=== PATIENT | female | born 1960 | race Caucasian/White ===

== ENCOUNTER 2020-01-06 02:38 | Emergency (ER) | payer OTHER ==
--- OUTSIDE RECORDS SUMMARY | 2020-01-06 02:41 | XMS REPORT | Continuity of Care Document ---
:1960 Author Organization [facility] t Address [address] [place] [address] Care Team Providers Name Role Phone Root, G Attending Clinician Unavailable Root, G Attending Clinician Unavailable Root, G Admitting Clinician Unavailable Problems Condition Condition Condition Status Onset Resolution Last Treating Co mments Source Name Details Category Date Date Treatment Clinician Date Recurrent Recurrent Diagnosis Active [facility] - depressive depressive Me moria disorder, disorder, l in partial in partial Ou tpati remission remission ent Clinics Hypertensi Hypertensi Problem Active [facility] Diabetes Diabetes Problem [facility] mellitus [facility] - type 2, type 2, [facility] controlled controlled l [facility] Hyperlipid Hyperlipid Problem Active [facility] Osteoarthr Osteoarthr Problem Active [facility] itis, itis, [facility] - multiple multiple Memori a sites sites l [facility]ics PVD PVD Problem Active [facility] (posterior (posterior Maggi kes - vitreous vitreous Memori a detachment detachment l ) ) [facility] Generalize Generalize Problem Active [facility] - abdominal abdominal Ranulfo radha pain pain l [facility] Cervical Cervical Problem Active [facility] disc [facility] - disease 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 Ou tpati ent Clinics Irritable Irritable Problem Active [facility] bowel bowel [facility] - syndrome syndrome Memori a with with l constipati constipati Ou tpati on on ent Clinics Irritable Irritable Problem Active [facility] bowel bowel [facility] - syndrome syndrome Memori a with both with both l constipati constipati Ou tpati on and on and ent diarrhea diarrhea Clinic s Allergies, Adverse Reactions, Alerts Allergy Allergy Status Severity Reaction(s) Onset Inactive Treating Comm ents Source Name Type Date Date Clinician Lisinopr Adverse Active bad cough [facility] Clinics Trintell Adverse Active vomit [facility] ix Reaction [facility] ent Clinics Medications Ordered Filled Start Stop Current Ordering Indication Dosage Frequency Signature Comments Components Source Medication Medication Date Date Medication? Clinician (SIG) Name Name Colestipol Colestipol Yes Perlita [address] [facility] HCl HCl 4-03 [facility] - [facility]: [facility] Lithobid Lithobid Yes Perlita [address] [facility] at bedtime [facility] Quetiapine Quetiapine Yes Perlita [address] [facility] [address] Fumarate Fumarate [place] at bedtime [facility] ent [facility] Metformin Metformin Yes Perlita take one [facility] HCl HCl [place] -1 [facility] - tablet(s) Memoria by mouth l twice a Outpati day. ent Clinics Hydrochloro Hydrochloro Yes Perlita TAKE ONE [facility] thiazide thiazide [place] (1) [facility] - TABLET(S) Memoria BY MOUTH l ONCE A DAY Outpati IN THE ent MORNING. Clinics Duloxetine Duloxetine Yes Perlita [address] [address] HCl HCl [facility] [facility] l [facility] ent Clinics Procedures This patient has no known procedures. Encounters Start End Encounter Admission Attending Care Care Encounter Source Date/Time Date/Time Type Type Clinicians Facility Department ID 2019-11-18 Inpatient 1 Cristhian Nuñez [facility] PS[facility] [id number] 23:27:00 Cristhian Nuñez [id number] [address] [place] [address] 2019-01-05 Inpatient U [facility] MED [id number] MH H 08:09:00 2019-11-18 2019-11-24 Inpatient 1 Joaquin [facility] PSY [id number] 23:27:00 15:27:00 [facility] 2019-11-18 2019-11-18 Emergency E [facility] [id number] [facility]BL 02:28:00 02:28:00 2019-05-23 2019-05-23 Outpatient Jose Armando Lucero [id number] [facility] [address] 08:40[facility]00 08:40:00 [facility] 2019-02-14 2019-02-14 Outpatient Jose Armando Lucero [id number] [address] 09:40:00 09:40:00 t [facility] Medicine Outpati ent Clinics 2019-02-10 2019-02-10 [facility] [id number] [address] 09:40:00 09:40:00 t [facility] Medicine Outpati ent Clinics 2018-11-04 2018-11-04 [facility] [id number] [address] 08:04:00 08:04:00 t [facility] Medicine Outpati ent Clinics 2018-10-28 2018-10-28 [facility] [id number] [address] 09:26:00 09:26:00 t [facility] Medicine Outpati ent Clinics 2018-10-22 2018-10-22 [facility] [id number] 11:40:00 11:40:00 [facility] Outpati ent Clinics 2018-10-11 2018-10-11 [facility] [id number] [address] 16:27:00 16:27:00 t [facility] Medicine Outpati ent Clinics 2018-10-11 2018-10-11 [facility] [id number] 14:50:00 14:50:00 [facility] Medicine Outpati ent Clinics 2018-09-11 2018-09-11 [facility] [id number] 11:42:00 11:42:00 [facility] Medicine Outpati ent Clinics 2018-02-28 2018-02-28 [facility] [id number] 13:30:00 13:30:00 [facility] Outpati ent Clinics Results Test Description Test Time Test Comments Results Result Comments Source POC Glucose 2019-11-21 05:54:54 Test Item Value Reference Range Interpretation Comme nts Glucose POC (test code = 105 mg/dL 70-115 If you consider your patient Glucose POC) critically ill, the Rashaun-Accu Check Infrom II meter should not be used for Glucose det ermination. Draw a venous Glucose and send to the main Lab for analysi s. RPR [id number] 12:46:36 Test Item Value Reference Range Interpretation Comments RPR Qual (test code = RPR Qual) Non-Reactive Non-Reactive Reactive Control (test code = Reactive Reactive Control) Weak Reactive Control (test Weak Reactive code = Weak Reactive Control) Non-Reactive Control (test code Non-Reactive = Non-Reactive Control) Lot # (test code = Lot #) [id number] N Expiration Dt (test code = 11-18-2020 N Expiration Dt) Lipid [id number] 08:35:10 Test Item Value Reference Range Interpretation Comments Cholesterol Total 244 mg/dL N Low-risk l evel (test code = (desirable) - < 200 Cholesterol Total) mg/dlMode rate-risk level (borderli ne) - 200-239 mg/dlHigh-risk level - ?240 mg/dl Triglycerides (test 211 mg/dL N Normal - <150 code = Triglycerides) mg/dlB orderline high - 150-199 mg/dl High - 200-499 mg/dl Very high - ?500 mg/ dl HDL (test code = HDL) 48.60 mg/dL N Low-ri sk level (desirable) - ? 60 mg/dlHigh-risk level (undesirable) - <40 mg/dl LDL (test code = LDL) 153 mg/dL N The eq uation being used in this calculation is LDL = (Chol - HDL) - (Trig / 5) VLDL (test code = 42 mg/dL 5-40 H The equati on being VLDL) used in this calculation is VLDL = Trig / 5 Chol/HDL (test code = 5.0 ratio <=5.0 Chol/HDL) LDL/HDL Ratio (test 5 N The equa tion being code = LDL/HDL Ratio) used i n this calculation is LDL/HDL Ratio=L DL Calc/HDL Chol Thyroid Stimulating [id number] 08:35:10 Test Item Value Reference Range Interpretation Comments TSH (test code = TSH) 3.331 mcIU/mL 0.550-4.780 Hemoglobin [id number] 08:33:08 Test Item Value Reference Range Interpretation Comments Hemoglobin A1c (test code 6.0 % 4.0-5.8 H Di abetic >=6.5 = Hemoglobin A1c) %Prediabet es 5.7-6.4 %Normal <5.7 %
[2020-01-06] MEDS ORDERED: NA CHLORIDE 0.9% 1,000 ML ONE (03:18)
[2020-01-06 03:22] LABS: Protime INR 0.89
[2020-01-06 03:24] LABS: Absolute Lymphocytes (CBC) 3.5 K/uL (0.7-4.9); Basophils % 1.5 % (0-1.3); Hematocrit 46.9 % (36.0-45.0); Lymphocytes % 38.5 % (15.3-44.8); MPV 8.6 fL (7.6-11.3); RBC Red Blood Cell Count 5.03 M/uL (3.86-4.86)
[2020-01-06 03:37] LABS: ALT/SGPT 22 U/L (12-78); AST/SGOT 12 U/L (15-37); Albumin 3.8 g/dL (3.4-5.0); Alkaline Phosphatase 114 U/L (45-117); BUN Blood Urea Nitrogen 5 mg/dL (7-18); Bicarbonate 29 mmol/L (21-32); Bilirubin Direct 0.1 mg/dL (0-0.2); Bilirubin Total 0.4 mg/dL (0.2-1.0); Glucose Level 134 mg/dL (74-106); Potassium 3.1 mmol/L (3.5-5.1); Protein, Total 8.2 g/dL (6.4-8.2); Sodium Level 139 mmol/L (136-145)
[2020-01-06] MEDS ORDERED: POTASSIUM 25 MEQ EFFERV TAB ONE (04:15)
[2020-01-06 04:16] LABS: Barbiturates NEGATIVE (NEGATIVE); Benzodiazepines NEGATIVE (NEGATIVE); Cocaine NEGATIVE (NEGATIVE); METHAMPHETAM NEGATIVE (NEGATIVE); Methadone NEGATIVE (NEGATIVE); Opiates NEGATIVE (NEGATIVE); Phencyclidine NEGATIVE (NEGATIVE); THC Cannibis NEGATIVE (NEGATIVE)
[2020-01-06] MEDS ORDERED: CEFTRIAXONE 1000 MG/VIAL ONE (04:16)
[2020-01-06 04:44] LABS: Urine Blood NEGATIVE (NEG); Urine Glucose NEGATIVE (NEG); Urine Protein NEGATIVE (NEG); Urine pH 6.5 (5.0-7.0)
--- NOTE | 2020-01-06 05:01 | EDPHYS ---
Physician Documentation [facility] Name: Cat Menard Age: 59 yrs Sex: Female : 1960 Arrival Date: 01/06/2020 Time: 02:39 Bed 6 Private MD: KRISTY Physician Abhinav Bauman HPI: 01/05 02:41 This 59 yrs old Female presents to ER via Unassigned with complaints of dangelo Suicidal Ideation. 02:41 The patient presents to the emergency department with depression, suicide ideation, but dangelo the patient has no formulated plan. Onset: The symptoms/episode began/occurred today, yesterday. Past psychiatric history: Prior diagnosis: depression. Associated signs and symptoms: Pertinent positives; depression, suicide ideation. Severity of symptoms: At their worst the symptoms were moderate in the emergency department the symptoms are unchanged. The patient has not experienced similar symptoms in the past. Historical: - Allergies: 02:40 No Known Allergies; rr5 - Home Meds: 02:40 Metformin Oral [Active]; Hydrochlorothiazide Oral [Active]; Cymbalta oral oral [Active];rr5 - PMHx: 02:40 Hypertension; Diabetes - NIDDM; Anxiety; Depression; rr5 - PSHx: 02:40 Knee surgery; rr5 - Immunization history:: Adult Immunizations up to date. - Social history:: Smoking status: Patient reports the use of cigarette tobacco products, 4 sticks per day, Patient uses alcohol, Patient/guardian denies using street drugs. - Family history:: not pertinent. ROS: 02:41 Constitutional: Negative for fever, chills, and weight loss, Eyes: Negative for injury, dangelo pain, redness, and discharge, ENT: Negative for injury, pain, and discharge, Neck: Negative for injury, pain, and swelling, Cardiovascular: Negative for chest pain, palpitations, and edema, Respiratory: Negative for shortness of breath, cough, wheezing, and pleuritic chest pain, Abdomen/GI: Negative for abdominal pain, nausea, vomiting, diarrhea, and constipation, Back: Negative for injury and pain, : Negative for injury, bleeding, discharge, and swelling, MS/Extremity: Negative for injury and deformity, Skin: Negative for injury, rash, and discoloration, Neuro: Negative for headache, weakness, numbness, tingling, and seizure, Allergy/Immunology: Negative for hives, rash, and allergies, Endocrine: Negative for neck swelling, polydipsia, polyuria, polyphagia, and marked weight changes, Hematologic/Lymphatic: Negative for swollen nodes, abnormal bleeding, and unusual bruising. 02:41 Psych: Positive for depression. Exam: 02:41 Constitutional: This is a well developed, well nourished patient who is awake, alert, dangelo and in no acute distress. Head/Face: Normocephalic, atraumatic. Eyes: Pupils equal round and reactive to light, extra-ocular motions intact. Lids and lashes normal. Conjunctiva and sclera are non-icteric and not injected. Cornea within normal limits. Periorbital areas with no swelling, redness, or edema. ENT: Nares patent. No nasal discharge, no septal abnormalities noted. Tympanic membranes are normal and external auditory canals are clear. Oropharynx with no redness, swelling, or masses, exudates, or evidence of obstruction, uvula midline. Mucous membranes moist. Neck: Trachea midline, no thyromegaly or masses palpated, and no cervical lymphadenopathy. Supple, full range of motion without nuchal rigidity, or vertebral point tenderness. No Meningismus. Chest/axilla: Normal chest wall appearance and motion. Nontender with no deformity. No lesions are appreciated. Cardiovascular: Regular rate and rhythm with a normal S1 and S2. No gallops, murmurs, or rubs. Normal PMI, no JVD. No pulse deficits. Respiratory: Lungs have equal breath sounds bilaterally, clear to auscultation and percussion. No rales, rhonchi or wheezes noted. No increased work of breathing, no retractions or nasal flaring. Abdomen/GI: Soft, non-tender, with normal bowel sounds. No distension or tympany. No guarding or rebound. No evidence of tenderness throughout. Back: No spinal tenderness. No costovertebral tenderness. Full range of motion. Skin: Warm, dry with normal turgor. Normal color with no rashes, no lesions, and no evidence of cellulitis. MS/ Extremity: Pulses equal, no cyanosis. Neurovascular intact. Full, normal range of motion. Neuro: Awake and alert, GCS 15, oriented to person, place, time, and situation. Cranial nerves II-XII grossly intact. Motor strength 5/5 in all extremities. Sensory grossly intact. Cerebellar exam normal. Normal gait. 02:41 Psych: Behavior/mood is cooperative, Affect is calm, Oriented to person, place, time, Patient has no thoughts/intents to harm self or others. Judgement / Insight is normal. Memory is normal. Delusions/hallucinations are not present. 03:41 ECG was reviewed by the Attending Physician. [facility] Vital Signs: 02:42 BP 114 / 59 RA Sitting (auto/lg); Pulse 82; Resp 16; Temp 98.1(O); Pulse Ox 98% on R/A; jb5 02:50 Weight 99.79 kg; Height 5 ft. 4 in. (162.56 cm); rr5 04:16 BP 115 / 70; Pulse 80; Resp 19; Pulse Ox 99% ; rr5 05:08 BP 110 / 66; Pulse 75; Resp 16; Pulse Ox 99% ; rr5 02:50 Body Mass Index 37.76 (99.79 kg, 162.56 cm) rr5 MDM: 02:40 Patient medically screened. [facility] 02:45 Differential diagnosis: acute psychotic break, depression, psychosis secondary to dangelo non-compliance. Data reviewed: vital signs, nurses notes, lab test result(s), EKG. Data interpreted: surveillance system monitor: rate is 82 beats/min, rhythm is regular. Test interpretation: by ED physician or midlevel provider: ECG. Counseling: I had a detailed discussion with the patient and/or guardian regarding: the historical points, exam findings, and any diagnostic results supporting the discharge/admit diagnosis, lab results. 01/05 02:41 Order name: Acetaminophen; Complete Time: 03:47 [facility] 01/05 02:41 Order name: Basic Metabolic Panel; Complete Time: 03:47 [facility] 01/05 02:41 Order name: CBC with Diff; Complete Time: 03:47 [facility] 01/05 02:41 Order name: ETOH Level; Complete Time: 03:47 [facility] 01/05 02:41 Order name: Hepatic Function; Complete Time: 03:47 [facility] 01/05 02:41 Order name: PT-INR; Complete Time: 03:47 [facility] 01/05 02:41 Order name: Ptt, Activated; Complete Time: 03:47 [facility] 01/05 02:41 Order name: Salicylate; Complete Time: 03:47 [facility] 01/05 02:41 Order name: Urine Drug Screen; Complete Time: 05:00 [facility] 01/05 04:00 Order name: Urine Culture [facility] 01/05 04:06 Order name: Urine Dipstick--Ancillary (enter results); Complete Time: 05:00 al 01/05 02:41 Order name: EKG; Complete Time: 02:42 [facility] 01/05 02:41 Order name: EKG - Nurse/Tech; Complete Time: 03:08 [facility] 01/05 02:41 Order name: IV Saline Lock; Complete Time: 03:00 [facility] 01/05 02:41 Order name: Labs collected and sent; Complete Time: 03:00 [facility] 01/05 02:41 Order name: Urine Dipstick-Ancillary (obtain specimen); Complete Time: 04:00 [facility] EC:41 Rate is 78 beats/min. Rhythm is regular. QRS [place] is Normal. CA interval is normal. QRS dangelo interval is normal. QT interval is normal. No Q waves. T waves are Inverted in lead aVL. No ST changes noted. Clinical impression: NSR w/ Non-specific ST/T Changes. Interpreted by me. Reviewed by me. Administered Medications: 03:12 Drug: NS 0.9% 1000 ml Route: IV; Rate: 1 bolus; Site: right antecubital; rr5 05:10 Follow up: Response: No adverse reaction; IV Status: Completed infusion; IV Intake: rr5 1000ml 04:12 Drug: Potassium Effervescent Tablet 50 mEq Route: PO; rr5 05:10 Follow up: Response: No adverse reaction rr5 04:12 Drug: Rocephin 1 grams Route: IV; Rate: per protocol; Site: right antecubital; rr5 05:10 Follow up: Response: No adverse reaction; IV Status: Completed infusion; IV Intake: 19admg8 Disposition: 01/06/20 05:01 Discharged to Home. Impression: Major depressive disorder, recurrent, Suicidal ideations, Hypokalemia, Urinary tract infection, site not specified. - Condition is Stable. - Discharge Instructions: Potassium Content of Foods, Urinary Tract Infection, Adult, Suicidal Feelings: How to Help Yourself, Helping Someone Who is Suicidal, Urinary Tract Infection, Adult, [id number], Hypokalemia, Major Depressive Disorder, [id number]-[id number], Major Depressive Disorder. - Prescriptions for Cipro 250 mg Oral Tablet - take 1 tablet by ORAL route every 12 hours; 14 tablet. - Medication Reconciliation Form, Thank You Letter, Antibiotic Education, Prescription Opioid Use form. - Follow up: Private Physician; When: 2 - 3 days; Reason: Recheck today's complaints, Continuance of care, Re-evaluation by your physician. Follow up: Dion Martin; When: 2 - 3 days; Reason: Recheck today's complaints, Re-evaluation by your physician. - Problem is new. - Symptoms have improved. Signatures: Dispatcher [employer] EDAbhinav Shields MD MD cha Roque, Raymond RN RN rr5 Corrections: (The following items were deleted from the chart) 05:11 05:01 01/06/2020 05:01 Discharged to Home. Impression: Major depressive disorder, rr5 recurrent; Suicidal ideations; Hypokalemia; Urinary tract infection, site not specified. Condition is Stable. Discharge Instructions: Suicidal Feelings: How to Help Yourself, Helping Someone Who is Suicidal, Major Depressive Disorder, Qsth-ko-Xocm, Major Depressive Disorder, Potassium Content of Foods, Hypokalemia, Urinary Tract Infection, Adult, Urinary Tract Infection, Adult, Magk-uk-[id number]. Prescriptions for Cipro 250 mg Oral Tablet - take 1 tablet by ORAL route every 12 hours; 14 tablet. and Forms are Medication Reconciliation Form, Thank You Letter, Antibiotic Education, Prescription Opioid Use. Follow up: Private Physician; When: 2 - 3 days; Reason: Recheck today's complaints, Continuance of care, Re-evaluation by your physician. Follow up: Dion Martin; When: 2 - 3 days; Reason: Recheck today's complaints, Re-evaluation by your physician. Problem is new. Symptoms have improved. dangelo
--- NOTE | 2020-01-06 05:01 | ER ---
Nurse's Notes [facility] Name: Cat Menard Age: 59 yrs Sex: Female : 1960 Arrival Date: 01/06/2020 Time: 02:39 Bed 6 Private MD: Diagnosis: Major depressive disorder, recurrent;Suicidal ideations;Hypokalemia;Urinary tract infection, site not specified Presentation: 01/05 02:50 Chief complaint: accompanied by [place] district resource officer,he stated she called the crisis rr5 hot line she said she is depress but now she feels better. patient stated she had a bad day having suicidal thoughts wants to take pills. denies hurting others. had a 2 glass of wine tonight. Coronavirus screen: Client denies travel out of the [place] in the last 14 days. At this time, the client does not indicate any symptoms associated with coronavirus-19. Ebola Screen: Patient negative for fever greater than or equal to 101.5 degrees Fahrenheit, and additional compatible Ebola Virus Disease symptoms Patient denies exposure to infectious person. Patient denies travel to an Ebola-affected area in the 21 days before illness onset. Initial Sepsis Screen: Does the patient meet any 2 criteria? No. Patient's initial sepsis screen is negative. Does the patient have a suspected source of infection? No. Patient's initial sepsis screen is negative. Risk Assessment: Do you want to hurt yourself or someone else? Patient reports desire/thoughts of hurting themselves or someone else. Provider notified. Onset of symptoms was January 06, 2020. 02:50 Method Of Arrival: Law Enforcement: Crista MUSA rr5 02:50 Acuity: GILMAR 2 rr5 Historical: - Allergies: 02:40 No Known Allergies; rr5 - Home Meds: 02:40 Metformin Oral [Active]; Hydrochlorothiazide Oral [Active]; Cymbalta oral oral [Active];rr5 - PMHx: 02:40 Hypertension; Diabetes - NIDDM; Anxiety; Depression; rr5 - PSHx: 02:40 Knee surgery; rr5 - Immunization history:: Adult Immunizations up to date. - Social history:: Smoking status: Patient reports the use of cigarette tobacco products, 4 sticks per day, Patient uses alcohol, Patient/guardian denies using street drugs. - Family history:: not pertinent. Screenin:55 Abuse screen: Denies threats or abuse. Denies injuries from another. Nutritional rr5 screening: No deficits noted. Tuberculosis screening: No symptoms or risk factors identified. Fall Risk IV access (20 points). Total Edwards Fall Scale indicates No Risk (0-24 pts). Assessment: 02:50 General: Appears in no apparent distress. uncomfortable, Behavior is calm, cooperative, rr5 Reports had 2 glasses of wine. 02:50 Pain: Denies pain. Neuro: Level of Consciousness is awake, alert, obeys commands, rr5 Oriented to person, place, time. Cardiovascular: Capillary refill < 3 seconds Patient's skin is warm and dry. Respiratory: Airway is patent Respiratory effort is even, unlabored, Respiratory pattern is regular, symmetrical. GI: No signs and/or symptoms were reported involving the gastrointestinal system. : No signs and/or symptoms were reported regarding the genitourinary system. EENT: No signs and/or symptoms were reported regarding the EENT system. Derm: Skin is intact, is healthy with good turgor, Skin temperature is warm. Musculoskeletal: Circulation, motion, and sensation intact. Capillary refill < 3 seconds. 04:00 Reassessment: Patient appears in no apparent distress at this time. Patient is alert, rr5 oriented x 3, equal unlabored respirations, skin warm/dry/pink. [facility] at bedside. 04:47 Reassessment: Patient appears in no apparent distress at this time. Patient is alert, rr5 oriented x 3, equal unlabored respirations, skin warm/dry/pink. [facility] at bedside. 05:09 Reassessment: Patient appears in no apparent distress at this time. Patient is alert, rr5 oriented x 3, equal unlabored respirations, skin warm/dry/pink. recommendation by [facility] to follow up as OPD. discharge instruction given and explained without complaints made. Psych: 03:00 Subjective: Patient's mood is calm Delusions are denied, Hallucinations are denied rr5 Having thoughts of. Objective: Patient is cooperative, Speech is normal, Affect is appropriate. Interventions: Removed personal items and placed in bag. Searched person for dangerous items. Urine collected and sent for urine drug test. 03:00 Suicide Risk Assessment: Sad Person Scale: Sex of patient: Female: Score 0 points. Age rr5 of patient: Score 0 point if patient falls outside of specified age parameters. Depression: Score 1 point if signs of depression are present. Previous Attempt: Score 0 point if patient has not previously attempted suicide. Substance Abuse: Score 0 point if patient does not abuse alcohol or drugs. Rational Thinking: Score 0 point if patient has rational thinking. Social Support: Score 0 if social support is present/available. Organized Plan: Score 0 if patient did not have an organized plan in place. Relationship: Score 1 point if patient is , , , or for a single male Chronic Sickness: Score 1 point if patient has illness, chronic, debilitating, or severe. TOTAL POINTS: If total points are 3-4, proposed clinical action is close follow-up/consider hospitalization. Safety Checks: Personal items have been removed. Door is open. Visitors are present. Pt denies substance abuse. Commitment: Patient will be a voluntary commitment. 03:00 Interventions: Removed personal items and placed in bag. Searched person for dangerous rr5 items. Urine collected and sent for urine drug test. Vital Signs: 02:42 BP 114 / 59 RA Sitting (auto/lg); Pulse 82; Resp 16; Temp 98.1(O); Pulse Ox 98% on R/A; jb5 02:50 Weight 99.79 kg; Height 5 ft. 4 in. (162.56 cm); rr5 04:16 BP 115 / 70; Pulse 80; Resp 19; Pulse Ox 99% ; rr5 05:08 BP 110 / 66; Pulse 75; Resp 16; Pulse Ox 99% ; rr5 02:50 Body Mass Index 37.76 (99.79 kg, 162.56 cm) rr5 ED Course: 02:39 Patient arrived in ED. cf2 02:40 Abhinav Bauman MD is Attending Physician. dangelo 02:40 Arm band placed on right wrist. rr5 02:49 Herbie Bowman RN is Primary Nurse. rr5 02:53 Triage completed. rr5 02:59 Inserted saline lock: 20 gauge in right antecubital area, using aseptic technique. jb5 Blood collected. 02:59 Acetaminophen Sent. jb5 03:00 Patient has correct armband on for positive identification. Bed in low position. rr5 03:00 Basic Metabolic Panel Sent. jb5 03:00 CBC with Diff Sent. jb5 03:00 ETOH Level Sent. jb5 03:00 Hepatic Function Sent. jb5 03:00 PT-INR Sent. jb5 03:00 Ptt, Activated Sent. jb5 03:00 Salicylate Sent. jb5 03:07 Acetaminophen Sent. jb5 03:07 Basic Metabolic Panel Sent. jb5 03:07 CBC with Diff Sent. jb5 03:07 ETOH Level Sent. jb5 03:08 Hepatic Function Sent. jb5 03:08 PT-INR Sent. jb5 03:08 Ptt, Activated Sent. jb5 03:08 Salicylate Sent. jb5 04:06 Contacted [facility] for evaluation. mt 04:12 Urine collected: clean catch specimen, clear. rr5 04:12 No provider procedures requiring assistance completed. rr5 04:48 Chiquis Pardo with [facility] at bedside for evaluation. md 05:01 Dion Martin MD is Referral Physician. [facility] 05:09 IV discontinued, intact, bleeding controlled, No redness/swelling at site. Pressure rr5 dressing applied. Administered Medications: 03:12 Drug: NS 0.9% 1000 ml Route: IV; Rate: 1 bolus; Site: right antecubital; rr5 05:10 Follow up: Response: No adverse reaction; IV Status: Completed infusion; IV Intake: rr5 1000ml 04:12 Drug: Potassium Effervescent Tablet 50 mEq Route: PO; rr5 05:10 Follow up: Response: No adverse reaction rr5 04:12 Drug: Rocephin 1 grams Route: IV; Rate: per protocol; Site: right antecubital; rr5 05:10 Follow up: Response: No adverse reaction; IV Status: Completed infusion; IV Intake: [id number] Intake: 05:10 IV: 10ml; Total: 10ml. rr5 05:10 IV: 1000ml; Total: 1010ml. rr5 Outcome: 05:01 Discharge ordered by . dangleo 05:09 Discharged to home ambulatory, with family. rr5 05:09 Condition: stable 05:09 Discharge instructions given to patient, family, Instructed on discharge instructions, follow up and referral plans. medication usage, Demonstrated understanding of instructions, follow-up care, medications, Prescriptions given X 1. 05:11 Patient left the ED. rr5 Signatures: Abhinav Bauman MD MD cha Broussard, Jennifer jb5 Elissa Nieves mt, Raymond, RN RN rr5 Goodwin, Celesta cf2
--- NOTE | 2020-01-06 12:33 | EKG ---
Test Date: 2020-01-06 Test Time: 03:03:37 Top Lift Compressor: MARSHA MEASUREMENT RESULTS: Intervals: Rate: 78 AR: 174 QRSD: 82 QT: 394 QTc: 449 [place]: P: 52 AR: 174 QRS: -32 T: 81 INTERPRETIVE STATEMENTS: Normal sinus rhythm Left axis deviation Low voltage QRS Nonspecific T wave abnormality Abnormal ECG Compared to ECG 06/07/2002 23:13:00 Left-axis deviation now present Low QRS voltage now present T-wave abnormality now present Electronically Signed On 01-06-20 12:33:01 NARRATIVE WRITER by Wu Hill
[2020-01-06 12:40] VITALS: TEMP 98.1
[2020-01-06 12:46] VITALS: O2SAT 99
[2020-01-06 12:48] VITALS: BP 110/66
== END 2020-01-06 05:11 | disposition home or self-care (01) ==
LOC: ER 02:38
DX: R45.851 Suicidal ideations (principal); E87.6 Hypokalemia; N39.0 Urinary tract infection, site not specified; I10 Essential (primary) hypertension; E11.9 Type 2 diabetes mellitus without complications; F17.210 Nicotine dependence, cigarettes, uncomplicated
CPT/HCPCS: 96365; 96361; 93005; 87088; 85025; 87086; 80048; 36415; 80320; 80329 ×2; 85610; 80076; 80307 ×8; 85730; 81003; 99284; J7030

== ENCOUNTER 2020-05-26 00:41 | Emergency (ER) | payer OTHER ==
--- OUTSIDE RECORDS SUMMARY | 2020-05-26 00:44 | XMS REPORT | Continuity of Care Document ---
:1960 Author Organization [facility] t Address [address] [place] [address] Care Team Providers Name Role Phone Joaquin, G Attending Clinician Unavailable Root, G Attending Clinician Unavailable Root, G Admitting Clinician Unavailable Problems This patient has no known problems. Allergies, Adverse Reactions, Alerts Allergy Allergy Status Severity Reaction(s) Onset Inactive Treating Comm ents Source Name Type Date Date Clinician Lisinopr Adverse Active bad cough [facility] Clin[facility] [place] Adverse Active vomit [facility] Medications Ordered Filled Start Stop Current Ordering Indication Dosage Frequency Signature Comments Components Source Medication Medication Date Date Medication? Clinician (SIG) Name Name Colestipol Colestipol 0 Yes Perlita [address] [facility] HCl HCl 4-03 [place] [facility] Lithobid Lithobid Yes Perlita [address] [place] [facility] Quetiapine Quetiapine Yes Perlita [address] [facility] Fumarate Fumarate [place] at bedtime kes [facility] ent Clinics Metformin Metformin Yes Perlita take one [facility] HCl HCl [place] -1 [facility] - tablet[facility] by mouth l twice a Outpati day. ent Clinics Hydrochloro Hydrochloro Yes Perlita TAKE ONE [facility] thiazide thiazide [place] (1) [facility] - TABLET(S[facility] BY MOUTH l ONCE A DAY Outpati IN THE ent MORNING. Clinics Duloxetine Duloxetine Yes Perlita [address] [facility] [place] [facility] Procedures This patient has no known procedures. Encounters Start End Encounter Admission Attending Care Care Encounter Source Date/Time Date/Time Type Type Clinicians Facility Department ID 2019-11-18 Inpatient 1 Cristhian Nuñez [facility] [id number] 23:27:00 Cristhian Nuñez [id number] [facility] 2019-01-05 Inpatient U [facility] [id number] [facility] 08:09:00 2020-05-06 2020-05-06 Outpatient [facility] [id number] 2020-04-28 2020-04-28 Outpatient [facility] [id number] [facility] 2019-11-18 2019-11-24 Inpatient 1 Cristhian Nuñez [facility] [id number] 23:27:00 15:27:00 Cristhian Nuñez [facility] 2019-11-18 2019-11-18 Emergency E [facility] [id number] [facility] 02:28:00 02:28:00 2019-05-23 2019-05-23 [facility] [id number] [facility] 08:40[facility]00 08:40:00 [facility] Outpati ent Clinics 2019-02-14 2019-02-14 [facility] [id number] [address] 09:40:00 09:40:00 [facility] Outpati ent Clinics 2019-02-10 2019-02-10 [facility] [id number] 09:40:00 09:40:00 [facility] Outpati ent Clinics 2018-11-04 2018-11-04 [facility] [id number] [address] 08:04:00 08:04:00 [facility] Outpati ent Clinics 2018-10-28 2018-10-28 [facility] [id number] [address] 09:26:00 09:26:00 [facility] 2018-10-22 2018-10-22 [facility] [id number] [address] 11:40:00 11:40:00 [facility] 2018-10-11 2018-10-11 [facility] [id number] 16:27:00 16:27:00 [facility] 2018-10-11 2018-10-11 [facility] [id number] 14:50:00 14:50:00 [facility] ent Clinics 2018-09-11 2018-09-11 [facility] [id number] 11:42:00 11:42:00 [facility] 2018-02-28 2018-02-28 [facility] [id number] 13:30:00 13:30:00 [facility] Results Test Description Test Time Test Comments [...] to the main Lab for analysi s. OTILIA [id number] 12:46:36 Test Item Value Reference Range Interpretation Comments RPR Qual (test code = RPR Qual) Non-Reactive Non-Reactive Reactive Control (test code = Reactive Reactive Control) Weak Reactive Control (test Weak Reactive code = Weak Reactive Control) Non-Reactive Control (test code Non-Reactive = Non-Reactive Control) Lot # (test code = Lot #) [id number] N Expiration Dt (test code = 11-18-2020 N Expiration Dt) Lipid [id number] 08:35:10 Test Item Value Reference Range Interpretation [...] LDL/HDL Ratio=L DL Calc/HDL Chol Thyroid Stimulating [id number] 08:35:10 Test Item Value Reference Range Interpretation Comments TSH (test code = TSH) 3.331 mcIU/mL 0.550-4.780 Hemoglobin [id number] 08:33:08 Test Item Value Reference Range Interpretation Comments Hemoglobin A1c (test code 6.0 % 4.0-5.8 H Di abetic >=6.5 = Hemoglobin A1c) %Prediabet es 5.7-6.4 %Normal <5.7 %
[2020-05-26 01:14] LABS: Urine Blood Negative (Negative); Urine Glucose Negative (Negative); Urine Protein Negative (Negative)
[2020-05-26 01:22] LABS: Absolute Lymphocytes (CBC) 3.5 K/uL (0.7-4.9); Basophils % 1.2 % (0-1.3); Hematocrit 44.1 % (36.0-45.0); Lymphocytes % 37.9 % (15.3-44.8); MPV 8.2 fL (7.6-11.3); RBC Red Blood Cell Count 4.69 M/uL (3.86-4.86)
[2020-05-26] MEDS ORDERED: CEFTRIAXONE/SWI 1gm 1 GM/10 ML SYR ONE (01:34)
[2020-05-26] MEDS ORDERED: NA CHLORIDE 0.9% 1,000 ML ONE (01:35)
[2020-05-26 01:41] LABS: Barbiturates NEGATIVE (NEGATIVE); Benzodiazepines NEGATIVE (NEGATIVE); Cocaine NEGATIVE (NEGATIVE); METHAMPHETAM NEGATIVE (NEGATIVE); Methadone NEGATIVE (NEGATIVE); Opiates NEGATIVE (NEGATIVE); Phencyclidine NEGATIVE (NEGATIVE); THC Cannibis NEGATIVE (NEGATIVE)
[2020-05-26 01:42] LABS: Protime INR 0.95
[2020-05-26 02:05] LABS: ALT/SGPT 25 U/L (12-78); Albumin 3.5 g/dL (3.4-5.0); Alkaline Phosphatase 105 U/L (45-117); BUN Blood Urea Nitrogen 7 mg/dL (7-18); Bicarbonate 29 mmol/L (21-32); Bilirubin Direct < 0.1 mg/dL (0-0.2); Bilirubin Total 0.3 mg/dL (0.2-1.0); Glucose Level 121 mg/dL (74-106); Protein, Total 7.6 g/dL (6.4-8.2); Sodium Level 137 mmol/L (136-145)
[2020-05-26 02:06] LABS: AST/SGOT 15 U/L (15-37); Potassium 3.5 mmol/L (3.5-5.1)
--- NOTE | 2020-05-26 03:25 | EDPHYS ---
Physician Documentation [facility] Name: Cat Menard Age: 59 yrs Sex: Female : 1960 Arrival Date: 05/26/2020 Time: 00:48 Bed 6 Private MD: KRISTY Physician Abhinav Bauman HPI: 05/26 01:26 This 59 yrs old Female presents to ER via EMS with complaints of Suicidal dangelo Ideation. 01:26 The patient presents to the emergency department with depression, a history of a dangelo suicide gesture, where the patient took pills/medications, prozac/cymbalta a handful. Onset: The symptoms/episode began/occurred just prior to arrival. Past psychiatric history: Prior diagnosis: depression, Psychiatric medications include: Prozac, cymbalta. Associated signs and symptoms: The patient has no apparent associated signs or symptoms. Severity of symptoms: At their worst the symptoms were mild moderate in the emergency department the symptoms are unchanged. The patient has experienced similar episodes in the past, several times. Historical: - Allergies: 00:56 No Known Allergies; wh - PMHx: 00:56 Anxiety; Depression; Diabetes - NIDDM; Hypertension; wh - Immunization history:: Adult Immunizations unknown. - Social history:: Smoking status: Patient reports the use of cigarette tobacco products, smokes one-half pack cigarettes per day. - Family history:: not pertinent. ROS: 01:26 Constitutional: Negative for fever, chills, and weight loss, Eyes: Negative for injury, dangelo pain, redness, and discharge, ENT: Negative for injury, pain, and discharge, Neck: Negative for injury, pain, and swelling, Cardiovascular: Negative for chest pain, palpitations, and edema, Respiratory: Negative for shortness of breath, cough, wheezing, and pleuritic chest pain, Abdomen/GI: Negative for abdominal pain, nausea, vomiting, diarrhea, and constipation, Back: Negative for injury and pain, : Negative for injury, bleeding, discharge, and swelling, MS/Extremity: Negative for injury and deformity, Skin: Negative for injury, rash, and discoloration, Neuro: Negative for headache, weakness, numbness, tingling, and seizure, Allergy/Immunology: Negative for hives, rash, and allergies, Endocrine: Negative for neck swelling, polydipsia, polyuria, polyphagia, and marked weight changes, Hematologic/Lymphatic: Negative for swollen nodes, abnormal bleeding, and unusual bruising. 01:26 Psych: Positive for anxiety, depression, suicide gesture. Exam: :26 Constitutional: This is a well developed, well nourished patient who is awake, alert, dangelo and in no acute distress. Head/Face: Normocephalic, atraumatic. Eyes: Pupils equal round and reactive to light, extra-ocular motions intact. Lids and lashes normal. Conjunctiva and sclera are non-icteric and not injected. Cornea within normal limits. Periorbital areas with no swelling, redness, or edema. ENT: Nares patent. No nasal discharge, no septal abnormalities noted. Tympanic membranes are normal and external auditory canals are clear. Oropharynx with no redness, swelling, or masses, exudates, or evidence of obstruction, uvula midline. Mucous membranes moist. Neck: Trachea midline, no thyromegaly or masses palpated, and no cervical lymphadenopathy. Supple, full range of motion without nuchal rigidity, or vertebral point tenderness. No Meningismus. Chest/axilla: Normal chest wall appearance and motion. Nontender with no deformity. No lesions are appreciated. Cardiovascular: Regular rate and rhythm with a normal S1 and S2. No gallops, murmurs, or rubs. Normal PMI, no JVD. No pulse deficits. Respiratory: Lungs have equal breath sounds bilaterally, clear to auscultation and percussion. No rales, rhonchi or wheezes noted. No increased work of breathing, no retractions or nasal flaring. Abdomen/GI: Soft, non-tender, with normal bowel sounds. No distension or tympany. No guarding or rebound. No evidence of tenderness throughout. Back: No spinal tenderness. No costovertebral tenderness. Full range of motion. Female : Normal external genitalia. Skin: Warm, dry with normal turgor. Normal color with no rashes, no lesions, and no evidence of cellulitis. MS/ Extremity: Pulses equal, no cyanosis. Neurovascular intact. Full, normal range of motion. Neuro: Awake and alert, GCS 15, oriented to person, place, time, and situation. Cranial nerves II-XII grossly intact. Motor strength 5/5 in all extremities. Sensory grossly intact. Cerebellar exam normal. Normal gait. Psych: Awake, alert, with orientation to person, place and time. Behavior, mood, and affect are within normal limits. 01:30 ECG was reviewed by the Attending Physician. dangelo 03:43 ECG was reviewed by the Attending Physician. [facility] Vital Signs: 00:55 BP 135 / 68; Pulse 68; Resp 18; Temp 98.2; Pulse Ox 99% ; Weight 104.33 kg; Height 5 wh ft. 4 in. (162.56 cm); 03:00 BP 141 / 72; Pulse 67; Resp 16; Pulse Ox 96% on R/A; wh 04:30 BP 170 / 92; Pulse 72; Resp 16; Pulse Ox 97% ; wh 04:31 BP 165 / 99 RA Supine (auto/); Pulse 72 MON; Resp 14 S; Temp 98.2(O); Pulse Ox 98% ; ds4 Pain 0/10; 06:07 BP 176 / 84; Pulse 76; Resp 18 S; Pulse Ox 98% on R/A; bb 00:55 Body Mass Index 39.48 (104.33 kg, 162.56 cm) wh MDM: 00:55 Patient medically screened. [facility] 01:29 Differential diagnosis: acute psychotic break, depression, psychosis secondary to dangelo non-compliance. Data reviewed: vital signs, nurses notes, lab test result(s), EKG, radiologic studies, plain films. Data interpreted: ela teacher: rate is 68 beats/min, rhythm is regular, Pulse oximetry: on room air is 99 %. Test interpretation: by ED physician or midlevel provider: ECG, plain radiologic studies. Counseling: I had a detailed discussion with the patient and/or guardian regarding: the historical points, exam findings, and any diagnostic results supporting the discharge/admit diagnosis, lab results, radiology results. 05/26 00:49 Order name: Acetaminophen mg2 05/26 00:49 Order name: Basic Metabolic Panel; Complete Time: : mg2 05/26 00:49 Order name: CBC with Diff; Complete Time: 01:25 mg2 05/26 00:49 Order name: ETOH Level; Complete Time: : mg2 05/26 00:49 Order name: Hepatic Function; Complete Time: 02:56 mg2 05/26 00:49 Order name: PT-INR; Complete Time: 02: mg2 05/26 00:49 Order name: Ptt, Activated; Complete Time: : mg2 05/26 00:49 Order name: Salicylate; Complete Time: 02:56 mg2 05/26 00:49 Order name: Urine Drug Screen; Complete Time: 02:56 mg2 05/26 00:49 Order name: Acetaminophen Level; Complete Time: 02:56 EDMS 05/26 01:10 Order name: COVID-19 : Document "Date of Symptom Onset" if Symptomatic. [facility] 05/26 01:13 Order name: Urine Dipstick-Ancillary; Complete Time: 01:25 EDMS 05/26 01:13 Order name: Urine --Ancillary (enter results) 2 05/26 00:49 Order name: EKG; Complete Time: 00:50 mg2 05/26 00:49 Order name: EKG - Nurse/Tech; Complete Time: 01: mg2 05/26 00:49 Order name: IV Saline Lock; Complete Time: 01:07 mg2 05/26 00:49 Order name: Labs collected and sent; Complete Time: 01: mg2 05/26 00:49 Order name: Urine Dipstick-Ancillary (obtain specimen); Complete Time: 01: [facility] 05/26 00:59 Order name: Misc. Order: call poison control , follow all recommendations; Complete dangelo Time: 05/26 01:14 Order name: Urine --Ancillary; Complete Time: 05:20 EDMS 05/26 01:14 Order name: Urine Culture [facility] 05/26 03:45 Order name: Troponin (emerg Dept Use Only) [facility] 05/26 03:46 Order name: Troponin (Emerg Dept Use Only); Complete Time: 05:20 EDMS 05/26 03:56 Order name: SARS-COV-2 RT PCR; Complete Time: 04:34 EDMS 05/26 05:28 Order name: Salicylate 05/26 06:26 Order name: Diet Regular; Complete Time: 06:26 bb EC:30 Rate is 62 beats/min. Rhythm is regular. QRS [employer] is Normal. TX interval is normal. QRS dangelo interval is normal. QT interval is normal. No Q waves. T waves are Normal. No ST changes noted. Clinical impression: Normal ECG, NSR w/ Non-specific ST/T Changes, and No evidence of ischemia. Interpreted by me. Reviewed by me. 03:43 Rate is 69 beats/min. Rhythm is regular. QRS [employer] is Normal. TX interval is normal. QRS dangelo interval is normal. QT interval is normal. No Q waves. T waves are Inverted in leads V2, V3, V4, V5. No ST changes noted. Clinical impression: NSR w/ Non-specific ST/T Changes. Interpreted by me. Reviewed by me. Administered Medications: : Drug: NS 0.9% 1000 ml Route: IV; Rate: 1 bolus; Site: left antecubital; 03:48 Follow up: Response: No adverse reaction; IV Status: Completed infusion 01:23 Drug: Rocephin - (cefTRIAXone) 1 grams Route: IVPB; Infused Over: 30 mins; Site: left antecubital; 03:48 Follow up: Response: No adverse reaction; IV Status: Completed infusion Disposition: 05/26/20 03:24 Transfer ordered to Psych Facility. Diagnosis are Major depressive disorder, recurrent, Suicidal ideations, Suicide attempt - overdose, cymbalta, prozac, Type 2 diabetes mellitus, Essential (primary) hypertension, Urinary tract infection, site not specified, Alcohol abuse with intoxication. - Reason for transfer: Higher level of care. - Accepting physician is to psych. - Condition is Stable. - Problem is new. - Symptoms have improved. Signatures: Dispatcher [employer] EDNE Abhinav Bauman MD MD cha Smirch, Shelby, RN RN Lior Cuevas RN RN Jed Gastelum RN RN [facility] Corrections: (The following items were deleted from the chart) 02:26 01:10 CORONAVIRUS ordered. [facility] EDNE 03:47 03:24 05/26/2020 03:24 Transfer ordered to Psych Facility. Diagnosis is Major dangelo depressive disorder, recurrent; Suicidal ideations; Suicide attempt - overdose, cymbalta, prozac; Type 2 diabetes mellitus; Essential (primary) hypertension. Reason for transfer: Higher level of care. Accepting physician is to psych. Condition is Stable. Problem is new. Symptoms have improved. [facility] 05:20 03:47 05/26/2020 03:24 Transfer ordered to Psych Facility. Diagnosis is Major dangelo depressive disorder, recurrent; Suicidal ideations; Suicide attempt - overdose, cymbalta, prozac; Type 2 diabetes mellitus; Essential (primary) hypertension; Urinary tract infection, site not specified. Reason for transfer: Higher level of care. Accepting physician is to psych. Condition is Stable. Problem is new. Symptoms have improved. [facility] 08:14 05:20 05/26/2020 03:24 Transfer ordered to Psych Facility. Diagnosis is Major ss depressive disorder, recurrent; Suicidal ideations; Suicide attempt - overdose, cymbalta, prozac; Type 2 diabetes mellitus; Essential (primary) hypertension; Urinary tract infection, site not specified; Alcohol abuse with intoxication. Reason for transfer: Higher level of care. Accepting physician is to psych. Condition is Stable. Problem is new. Symptoms have improved. dangelo
--- NOTE | 2020-05-26 03:25 | ER ---
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 Pt called Poison Control and was advised to call 911. Pt didn't call 911 so Poison Control notified EMS. Pt with PMH of SI a couple of months ago. Coronavirus screen: Client denies travel out of the [place] in the last 14 days. At this time, the client does not indicate any symptoms associated with coronavirus-19. Ebola Screen: Patient negative for fever greater than or equal to 101.5 degrees Fahrenheit, and additional compatible Ebola Virus Disease symptoms Patient denies exposure to infectious person. Risk Assessment: Do you want to hurt yourself or someone else? Patient reports desire/thoughts of hurting themselves or someone else. Provider notified. Onset of symptoms was May 26, 2020. Care prior to arrival: IV initiated. 20 GA, in the left antecubital area, Glucose check: 97. 00:49 Method Of Arrival: EMS: [facility] 00:49 Acuity: GILMAR 2 00:55 Initial Sepsis Screen: Does the patient meet any 2 criteria? No. Patient's initial sepsis screen is negative. Does the patient have a suspected source of infection? No. Patient's initial sepsis screen is negative. Historical: - Allergies: 00:56 No Known Allergies; - PMHx: 00:56 Anxiety; Depression; Diabetes - NIDDM; Hypertension; - Immunization history:: Adult Immunizations unknown. - Social history:: Smoking status: Patient reports the use of cigarette tobacco products, smokes one-half pack cigarettes per day. - Family history:: not pertinent. Screenin:54 Abuse screen: Denies threats or abuse. Denies injuries from another. Nutritional screening: No deficits noted. Tuberculosis screening: No symptoms or risk factors identified. Fall Risk None identified. Assessment: 00:53 General: Appears in no apparent distress. Behavior is cooperative, drowsy, Smells of wh alcohol. Pain: Denies pain. Neuro: Level of Consciousness is awake, alert, obeys commands, Oriented to person, place, time, situation, Speech is normal. Cardiovascular: Capillary refill < 3 seconds. Respiratory: Airway is patent Respiratory effort is even, unlabored, Respiratory pattern is regular, symmetrical. GI: Abdomen is round non-distended. : No signs and/or symptoms were reported regarding the genitourinary system. EENT: No signs and/or symptoms were reported regarding the EENT system. Derm: Skin is intact, Skin is pink, warm \\T\\ dry. Musculoskeletal: Circulation, motion, and sensation intact. 01:08 Reassessment: Notified Poison Control Cecily with Recommendation of Propeller Driven Airplane Mechanic, Seizure Precautions, repeat EKG in 2 hours watch out for QTC of more than 470, and monitor for Serotonin Syndrome. . 03:47 Reassessment: Patient appears in no apparent distress at this time. Patient and/or wh family updated on plan of care and expected duration. Pain level reassessed. Patient is alert, oriented x 3, equal unlabored respirations, skin warm/dry/pink. Sitter at bedside, Pt assessed by alba Moody transfer. 04:30 Reassessment: Nurse to nurse With Nash from [facility]. 05:03 Reassessment: nurse to nurse report given to Luis Pastrana [place]- [facility]. [facility] 05:16 Reassessment: pt instructed on need for transfer to [facility] pt bb states she does not want to go there she has been there before and didn't like it. Pt states she was not trying to hurt herself but was just trying to sleep because she was tired. Pt instructed that [facility] recommended that she be sent for inpatient observation for further evaluation and treatment. Pt states she has to talk to her daughter first "I can't just disappear" attempted to call daughter with Ipad but there was no answer so pt's phone was brought by security so she could notify her daughter. Attempting to transfer pt to [facility] at this time. 05:17 Reassessment: report given to SEVEN Miller of [facility]. mg2 05:22 Reassessment: [facility] Cecily Poison Control updated on Pt recs repeat Salicylate level and wh call if result is higher than 3.1. 05:38 Reassessment: nurse to nurse report given to [facility] Tanvi Ospina- RN- [id number].mg2 05:52 Reassessment: pt notified she has been accepted to [facility] and bb she agrees to the transfer. 06:06 Reassessment: pt's belongings given to her daughter Sangeetha. bb 06:15 Reassessment: Per Poison Control Nicko repeat ASA level in 2 to 4 hours, needs to trend wh down before transferring Pt, Notified Charge Nurse. 06:18 Reassessment: notified pt that Poison Control recommends reevaluating her salicylate bb levels prior to transfer to [facility] due to the upward trend in the level. 07:30 Reassessment: Pt is resting at this time. Eyes closed. Respirations even and unlabored. ss Awaiting for EMS to transport patient to [facility]. Belongings sent with EMS personnel. Psych: 00:52 [place] Suicide Severity Screening: In the past month, have you wished you were wh or wished you could go to sleep and not wake up? Patient responds "yes." "In the past month, have you actually had any thoughts of killing yourself?" Patient responds "yes." "In your lifetime, have you ever done anything, started to do anything, or prepared to do anything to end your life?" Patient responds "yes." Patient reports suicidal intent within 3 past months. Subjective: Patient's mood is sad. Objective: Patient is cooperative, Speech is normal, Affect is flat. Interventions: Removed personal items and placed in bag. Patient placed in hospital gown. Searched person for dangerous items. Belonging list filled out. Suicide Risk Assessment: Sad Person Scale: Sex of patient: Female: Score 0 points. Age of patient: Score 0 point if patient falls outside of specified age parameters. Depression: Score 1 point if signs of depression are present. Previous Attempt: Score 1 point if patient has previously attempted suicide. Substance Abuse: Score 1 point if patient abuses alcohol or drugs. Rational Thinking: Score 0 point if patient has rational thinking. Social Support: Score 1 point if social support is lacking and/or unavailable. Organized Plan: Score 1 point if patient had a plan in place. Safety Checks: Personal items have been removed. Door is open. No visitors are present at this time. Patient uses daily. Commitment: Patient will be a voluntary commitment. Vital Signs: 00:55 BP 135 / 68; Pulse 68; Resp 18; Temp 98.2; Pulse Ox 99% ; Weight 104.33 kg; Height 5 wh ft. 4 in. (162.56 cm); 03:00 BP 141 / 72; Pulse 67; Resp 16; Pulse Ox 96% on R/A; wh 04:30 BP 170 / 92; Pulse 72; Resp 16; Pulse Ox 97% ; wh 04:31 BP 165 / 99 RA Supine (auto/); Pulse 72 MON; Resp 14 S; Temp 98.2(O); Pulse Ox 98% ; ds4 Pain 0/10; 06:07 BP 176 / 84; Pulse 76; Resp 18 S; Pulse Ox 98% on R/A; bb 00:55 Body Mass Index 39.48 (104.33 kg, 162.56 cm) ED Course: 00:48 Patient arrived in ED. wh 00:48 Lior Cuevas, RN is Primary Nurse. wh 00:51 Triage completed. wh 00:54 Arm band placed on right wrist. wh 00:55 Abhinav Bauman MD is Attending Physician. dangelo 00:56 Patient has correct armband on for positive identification. Placed in gown. Bed in low wh position. Side rails up X 1. honeycomb decapper on. Pulse ox on. NIBP on. Sitter at bedside. 00:56 Maintain EMS IV. Dressing intact. Good blood return noted. Site clean \\T\\ dry. wh 01:46 called [facility] Crisis line spoke to Elza to have a screener speak to the patient. mw2 04:13 faxed patient clinicals to [facility], [facility], [address], [facility], [facility], [facility], [facility]. 04:27 Nurse to Nurse from [facility]. mw2 04:[address] Murray from [facility]. mw2 04:42 administrative approval given by Ricardo Amoh/ patient has been accepted to [address]/ Dr. Murray has accepted the patient in transfer. 05:18 patient refusing to go to [facility]. [facility] 05:22 doc to doc with [facility]. 2 06:23 administrative approval given by Leilani Cross/ patient has been accepted to [address]/ Dr. Cuellar has accepted the patient in transfer. 07:03 Primary Nurse role handed off by Lior Cuevas RN 08:00 No provider procedures requiring assistance completed. IV discontinued, intact, bleeding controlled, No redness/swelling at site. Pressure dressing applied. Administered Medications: 01:21 Drug: NS 0.9% 1000 ml Route: IV; Rate: 1 bolus; Site: left antecubital; 03:48 Follow up: Response: No adverse reaction; IV Status: Completed infusion 01:23 Drug: Rocephin - (cefTRIAXone) 1 grams Route: IVPB; Infused Over: 30 mins; Site: left antecubital; 03:48 Follow up: Response: No adverse reaction; IV Status: Completed infusion Outcome: 03:24 ER care complete, transfer ordered by MD. pierson 08:00 Transferred by ground EMS Transfer form completed. Note: to [facility] 08:00 Condition: good 08:00 Instructed on the need for transfer. 08:14 Patient left the ED. Signatures: Sylvia Soares Corey, MD MD cha Ballard, Brenda, RN RN Sally Ibrahim RN RN Austin Barrientos ds4 Lior Cuevas RN RN [facility] Jed Gastelum RN RN mg2 Corrections: (The following items were deleted from the chart) 01:04 00:49 Chief complaint: EMS states: Pt took a handful of Cymbalta and Prozac 30 minutes [facility]. Pt called Poison Control and was advised to call 911. Pt didn't call 911 so Poison Control notified EMS. Pt with PMH of SI a couple of months ago 01:11 00:56 Sitter at bedside. [facility] 06:17 06:15 Reassessment: Per Poison Control Nicko repeat ASA level in 2 to 4 hours, needs to trend down before transferring Pt
--- NOTE | 2020-05-26 12:46 | EKG ---
Test Date: 2020-05-26 Test Time: 03:25:42 Cash Sales Audit Clerk: FIDE MEASUREMENT RESULTS: Intervals: Rate: 69 TX: 170 QRSD: 74 QT: 418 QTc: 447 [place]: P: 46 TX: 170 QRS: -36 T: 112 INTERPRETIVE STATEMENTS: Normal sinus rhythm Left axis deviation T wave abnormality, consider anterior ischemia Abnormal ECG Compared to ECG 05/26/2020 00:54:57 T-wave abnormality now present Possible ischemia now present ST (T wave) deviation no longer present Electronically Signed On 05-26-20 12:45:16 CDT by Wu Hill
--- NOTE | 2020-05-26 12:46 | EKG ---
Test Date: 2020-05-26 Test Time: 00:54:57 Shrink Pit Operator: MG MEASUREMENT RESULTS: Intervals: Rate: 62 CO: 152 QRSD: 78 QT: 458 QTc: 464 [place]: P: 21 CO: 152 QRS: -33 T: 92 INTERPRETIVE STATEMENTS: Normal sinus rhythm Left axis deviation Nonspecific ST and T wave abnormality Abnormal ECG Compared to ECG 01/06/2020 03:03:37 ST (T wave) deviation now present T-wave abnormality no longer present Electronically Signed On 05-26-20 12:45:23 CDT by Wu Hill
== END 2020-05-26 08:14 ==
LOC: ER 00:41
DX: T43.222A Poisoning by selective serotonin reuptake inhibitors, intentional self-harm, initial encounter (principal); F33.9 Major depressive disorder, recurrent, unspecified; F10.129 Alcohol abuse with intoxication, unspecified; N39.0 Urinary tract infection, site not specified; E11.9 Type 2 diabetes mellitus without complications; I10 Essential (primary) hypertension; F17.210 Nicotine dependence, cigarettes, uncomplicated; Z20.822 Contact with and (suspected) exposure to COVID-19
CPT/HCPCS: 93005 ×2; 87088; 85025; 87086; 80048; 36415; 80320; 80329 ×3; 81025; 85610; 80076; 80307 ×8; 85730; 81003; 84484; U0003; J0696; J7030; 96365; 96366; 99285

== ENCOUNTER 2023-12-29 10:14 | Emergency (ER) | payer OTHER ==
--- OUTSIDE RECORDS SUMMARY | 2023-12-29 10:18 | XMS REPORT | Continuity of Care Document ---
Author Name Unknown Address [address] [facility]. [address] [place] [address] [facility] Address [address] [facility]. [address] [place] [address] Care Team Providers Care Agriscience Instructor Name Role Phone Perlita Bernal Attending Clinician Unavailable Cristhian Nuñez Attending Clinician Unavailable Cristhian Nuñez Attending Clinician Unavailable CESAR BRUNO Attending Clinician Cristhian Mahan Admitting Clinician Unavailable Payers Payer Name Policy Type Policy Number Effective Date Expirati on Date Source [facility] Advantage (HMO-POS) [id number] 2023 00:00:00 [facility] MCR Dual Complete (HMO-POS D-SNP) [id number] [facility] Problems Condition Name Condition Details Condition Category Status Onset Date Resolution Date Last Treatment Date Treating Clinician Comments Source [id number] BMI 40.0-44.9, adult Problem [facility] [id number] Parathyroi d adenoma Problem [facility] 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 [id number] Statin intoleranc e Problem [facility] [id number] Non-compli ant behavior Problem [facility] [id number] Type 2 diabetes mellitus with hyperglyce donell, without long-term current use of insulin Problem Common [facility] [id number] Spine pain Problem Comm on [facility] Hypertensi on Hypertensi on Problem Common [facility] Type II diabetes mellitus well controlled Diabetes mellitus type 2, controlled Problem [facility] Localized swelling, mass and lump, neck Mass of thyroid region Problem 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 Problem [facility] Osteoarthr itis of multiple joints Osteoarthr itis, multiple sites Problem [facility] [id number] Irritable bowel syndrome with constipati on Problem [facility] [id number] Irritable bowel syndrome with both constipati on and diarrhea Problem [facility] [id number] Pain in left knee Problem [facility] [id number] Other chronic pain Problem [facility] Comprehens herman eye examinatio n (procedure ) Routine eye exam Problem [facility] [id number] Cervicalgi a Problem [facility] Allergies, Adverse Reactions, Alerts Allergy Name Allergy Type Status Severity Reaction(s) Onset Date Inactive Date Treating Clinician Comments Source No Known Allergie s Drug Active [facility] lisinopr il lisinopr il Active bad cough [facility] lurasido ne lurasido ne Active spaced out feeling [facility] vortioxe adán vortioxe adán Active vomit [facility] Social History Social Habit Start Date Stop Date Quantity Comments Source History of Tobacco Use [facility] Sex Assigned At [facility] Smoking Status Start Date Stop Date Source Never Smoker [facility] Current Smoker 2023-07-04 00:00:00 [facility] Medications Ordered Medication Name Filled Medication Name Start Date Stop Date Current Medication? Ordering Clinician Indication Dosage Frequency Signature (SIG) Comments Components Source predniSONE 20 MG predniSONE 20 MG 2023-02 00:00: 00 No 1{table t} QD predniSONE 20 MG hydroCHLORO thiazide 25 MG hydroCHLORO thiazide 25 MG No QD hydroCHLOR Othiazide 25 MG DULoxetine HCl 30 MG DULoxetine HCl 30 MG No 1{capsu le} BID DULoxetine HCl 30 MG metFORMIN HCl 1000 MG metFORMIN HCl 1000 MG No BID metFORMIN HCl 1000 MG Gabapentin 300 MG Gabapentin 300 MG No 1{capsu le} QD Gabapentin 300 MG Trulicity 3 MG/0.5ML Trulicity 3 MG/0.5ML No Trulicity 3 MG/0.5ML Immunizations Ordered Immunization Name Filled Immunization Name Date Status Comments Source Fluarix (IIV3) - SDS - 0.5mL Fluarix (IIV3) - SDS - 0.5mL Unknown Completed [facility] Vital Signs Vital Name Observation Time Observation Value Comments S jacobo Height/Length Measured 2019-11-19 02:48:45 Height/Length Measured 2019-11-19 02:44:35 height 2023-11-26 11:20:00 64 [in_i] Commo n [facility] weight 2023-11-26 11:20:00 254 [lb_av] Comm on [facility] bmi 2023-11-26 11:20:00 43.59 kg/m2 Comm on [facility] height 2023-11-07 10:40:00 64 [in_i] Commo n [facility] weight 2023-11-07 10:40:00 254.6 [lb_av] Co mmon [facility] temperature 2023-11-07 10:40:00 97.3 [degF] Com mon [facility] bmi 2023-11-07 10:40:00 43.7 kg/m2 Commo n [facility] oximetry 2023-11-07 10:40:00 96 % Commo n [facility] respiratory rate 2023-11-07 10:40:00 15 /min [facility] blood pressure systolic 2023-11-07 10:40:00 118 mm[Hg] [facility] blood pressure diastolic 2023-11-07 10:40:00 64 mm[Hg] [facility] height 2023-11-07 10:40:00 64 [in_i] Commo n [facility] weight 2023-11-07 10:40:00 254.6 [lb_av] Co mmon [facility] temperature 2023-11-07 10:40:00 97.3 [degF] Com [facility] bmi 2023-11-07 10:40:00 43.7 kg/m2 Commo n [facility] oximetry 2023-11-07 10:40:00 96 % Commo n [facility] respiratory rate 2023-11-07 10:40:00 15 /min Common [facility] blood pressure systolic 2023-11-07 10:40:00 118 mm[Hg] Common [facility] blood pressure diastolic 2023-11-07 10:40:00 64 mm[Hg] [facility] height 2023-09-20 11:40:00 64 [in_i] Commo n [facility] weight 2023-09-20 11:40:00 255 [lb_av] Comm on [facility] bmi 2023-09-20 11:40:00 43.77 kg/m2 Comm on [facility] height 2023-07-04 08:00:00 64 [in_i] Commo n [facility] weight 2023-07-04 08:00:00 255.4 [lb_av] Co on [facility] temperature 2023-07-04 08:00:00 97.1 [degF] Com [facility] bmi 2023-07-04 08:00:00 43.83 kg/m2 Comm on [facility] oximetry 2023-07-04 08:00:00 97 % Commo n [facility] respiratory rate 2023-07-04 08:00:00 16 /min Common [facility] height 2023-04-25 11:20:00 64 [in_i] Commo n [facility] weight 2023-04-25 11:20:00 246 [lb_av] Comm on [facility] bmi 2023-04-25 11:20:00 42.22 kg/m2 Comm on [facility] height 2023-01-25 15:00:00 64 [in_i] Commo n [facility] weight 2023-01-25 15:00:00 246.8 [lb_av] Co on [facility] temperature 2023-01-25 15:00:00 97.9 [degF] Com [facility] bmi 2023-01-25 15:00:00 42.36 kg/m2 Comm on [facility] oximetry 2023-01-25 15:00:00 96 % Commo n [facility] respiratory rate 2023-01-25 15:00:00 16 /min Common [facility] blood pressure systolic 2023-01-25 15:00:00 139 mm[Hg] [facility] blood pressure diastolic 2023-01-25 15:00:00 66 mm[Hg] Common [facility] height 2022-12-20 11:40:00 64 [in_i] Commo n [facility] weight 2022-12-20 11:40:00 228 [lb_av] Comm on [facility] bmi 2022-12-20 11:40:00 39.13 kg/m2 Comm on [facility] height 2022-11-07 10:00:00 64 [in_i] Commo n [facility] weight 2022-11-07 10:00:00 246.8 [lb_av] Co on [facility] temperature 2022-11-07 10:00:00 97.3 [degF] Com mon [facility] bmi 2022-11-07 10:00:00 42.36 kg/m2 Comm on [facility] oximetry 2022-11-07 10:00:00 95 % Commo n [facility] respiratory rate 2022-11-07 10:00:00 16 /min Common [facility] height 2022-10-16 14:00:00 64 [in_i] Commo n [facility] weight 2022-10-16 14:00:00 247.0 [lb_av] Co on [facility] temperature 2022-10-16 14:00:00 97.4 [degF] Com [facility] bmi 2022-10-16 14:00:00 42.39 kg/m2 Comm on [facility] oximetry 2022-10-16 14:00:00 96 % Commo n [facility] respiratory rate 2022-10-16 14:00:00 16 /min [facility] blood pressure systolic 2022-10-16 14:00:00 139 mm[Hg] Common [facility] blood pressure diastolic 2022-10-16 14:00:00 84 mm[Hg] Common [facility] height 2022-09-20 09:40:00 64 [in_i] Commo n [facility] weight 2022-09-20 09:40:00 248.0 [lb_av] Co mmon [facility] temperature 2022-09-20 09:40:00 97.7 [degF] Com [facility] bmi 2022-09-20 09:40:00 42.56 kg/m2 Comm on [facility] oximetry 2022-09-20 09:40:00 98 % Commo n [facility] respiratory rate 2022-09-20 09:40:00 16 /min Common [facility] blood pressure systolic 2022-09-20 09:40:00 135 mm[Hg] Common [facility] blood pressure diastolic 2022-09-20 09:40:00 72 mm[Hg] Common [facility] height 2022-09-20 09:20:00 64 [in_i] Commo n [facility] weight 2022-09-20 09:20:00 248.0 [lb_av] Co [facility] temperature 2022-09-20 09:20:00 97.7 [degF] Com [facility] bmi 2022-09-20 09:20:00 42.56 kg/m2 Comm on [facility] oximetry 2022-09-20 09:20:00 98 % Commo n [facility] respiratory rate 2022-09-20 09:20:00 16 /min Common [facility] blood pressure systolic 2022-09-20 09:20:00 135 mm[Hg] Common [facility] blood pressure diastolic 2022-09-20 09:20:00 72 mm[Hg] Common [facility] height 2022-06-20 14:40:00 64 [in_i] Commo n [facility] weight 2022-06-20 14:40:00 249.0 [lb_av] Co [facility] temperature 2022-06-20 14:40:00 97.3 [degF] Com [facility] bmi 2022-06-20 14:40:00 42.74 kg/m2 Comm on [facility] oximetry 2022-06-20 14:40:00 97 % Commo n [facility] respiratory rate 2022-06-20 14:40:00 16 /min Common [facility] blood pressure systolic 2022-06-20 14:40:00 138 mm[Hg] Common [facility] blood pressure diastolic 2022-06-20 14:40:00 78 mm[Hg] [facility] height 2022-05-03 08:00:00 64 [in_i] Commo n [facility] weight 2022-05-03 08:00:00 263 [lb_av] Comm on [facility] bmi 2022-05-03 08:00:00 45.14 kg/m2 Comm on [facility] height 2022-02-23 16:40:00 64 [in_i] Commo n [facility] weight 2022-02-23 16:40:00 263.6 [lb_av] Co mmon [facility] temperature 2022-02-23 16:40:00 97.1 [degF] Com mon [facility] bmi 2022-02-23 16:40:00 45.24 kg/m2 Comm on [facility] oximetry 2022-02-23 16:40:00 97 % Commo n [facility] respiratory rate 2022-02-23 16:40:00 17 /min Common [facility] blood pressure systolic 2022-02-23 16:40:00 130 mm[Hg] Common [facility] blood pressure diastolic 2022-02-23 16:40:00 74 mm[Hg] [facility] height 2021-12-07 14:00:00 64 [in_i] Commo n [facility] weight 2021-12-07 14:00:00 245.0 [lb_av] Co mmon [facility] bmi 2021-12-07 14:00:00 42.05 kg/m2 Comm on [facility] height 2021-12-02 13:00:00 64 [in_i] Commo n [facility] weight 2021-12-02 13:00:00 245 [lb_av] Comm on [facility] bmi 2021-12-02 13:00:00 42.05 kg/m2 Comm on [facility] height 2021-07-21 08:00:00 64 [in_i] Commo n [facility] weight 2021-07-21 08:00:00 245 [lb_av] Comm on [facility] 2021-07-21 08:00:00 42.05 kg/m2 Comm on [facility] height 2021-04-22 16:00:00 64 [in_i] Commo n [facility] weight 2021-04-22 16:00:00 250 [lb_av] Comm on [facility] bmi 2021-04-22 16:00:00 42.91 kg/m2 Comm on [facility] height 2021-01-26 09:20:00 64 [in_i] Commo n [facility] weight 2021-01-26 09:20:00 256 [lb_av] Comm on [facility] temperature 2021-01-26 09:20:00 97.7 [degF] Com mon [facility] bmi 2021-01-26 09:20:00 43.94 kg/m2 Comm on [facility] oximetry 2021-01-26 09:20:00 99 % Commo n [facility] respiratory rate 2021-01-26 09:20:00 16 /min Common [facility] blood pressure systolic 2021-01-26 09:20:00 132 mm[Hg] Common [facility] blood pressure diastolic 2021-01-26 09:20:00 66 mm[Hg] [facility] height 2021-01-26 10:40:00 64 [in_i] Commo n [facility] weight 2021-01-26 10:40:00 250.8 [lb_av] Co mmon [facility] temperature 2021-01-26 10:40:00 97.7 [degF] Com mon [facility] bmi 2021-01-26 10:40:00 43.05 kg/m2 Comm on [facility] oximetry 2021-01-26 10:40:00 99 % Commo n [facility] respiratory rate 2021-01-26 10:40:00 16 /min [facility] blood pressure systolic 2021-01-26 10:40:00 132 mm[Hg] [facility] blood pressure diastolic 2021-01-26 10:40:00 66 mm[Hg] [facility] Height/Length Measured 2021-03-08 12:43:23 162.5 cm Weight Dosing 2021-03-08 12:43:23 102.00 kg Height/Length Measured 2021-03-08 12:39:46 162.5 cm Weight Dosing 2021-03-08 12:39:46 102.00 kg Height/Length Measured 2021-03-08 12:38:42 162.5 cm Weight Dosing 2021-03-08 12:38:42 102.00 kg Height/Length Measured 2021-03-08 12:37:56 162.5 cm Weight Dosing 2021-03-08 12:37:56 102.00 kg Encounters Start Date/Time End Date/Time Encounter Type Admission Type Attending Clinicians Care Facility Care Department Encounter ID Source 2023-09-19 15:45:00 Outpatient Perlita Bernal [facility] [id number] [facility] 2023-07-02 07:38:00 Outpatient Perlita Bernal [facility] [id number] [facility] 2023-06-06 07:24:00 [place] [facility] [id number] [facility] 2023-05-29 08:54:00 [place] [facility] [id number] [facility] 2023-04-23 09:34:00 [place] [facility] [id number] [facility] 2023-01-24 13:24:00 [place] [facility] [id number] [facility] 2022-09-20 09:21:00 [place] [facility] [id number] [facility] 2022-09-19 08:56:00 [place] [facility] [id number] [facility] 2022-06-19 13:38:01 [place] [facility] [id number] [facility] 2022-05-08 13:51:00 [place] [facility] [id number] [facility] 2022-05-02 10:25:00 [place] [facility] [id number] [facility] 2022-02-21 14:40:00 [place] [facility] [id number] [facility] 2021-11-22 13:32:00 Out[place], Perlita [facility] [id number] [facility] 2021-09-14 14:42:00 Out[place], Perlita [facility] [id number] [facility] 2021-07-25 09:15:00 Outpatient [place], Perlita [facility] [id number] [facility] 2021-03-16 14:35:10 Outpatient Perlita Bernal [facility] [id number] [facility] 2021-03-16 12:41:42 Outpatient Perlita Bernal [facility] [id number] [facility] 2021-03-16 12:22:33 [facility] [id number] [facility] 2021-03-16 12:21:55 [facility] [id number] [facility] 2021-03-16 11:16:58 [facility] [id number] [facility] 2021-03-16 11:16:49 [facility] [id number] [facility] 2019-11-18 23:27:00 Inpatient Cristhian Lima Cristhian [facility] [id number] [facility] 2019-01-05 08:09:00 Inpatient U [facility] [id number] [facility] 2023-11-26 00:00:00 2023-11-26 00:00:00 [facility] [id number] 2023-11-23 00:00:00 2023-11-23 00:00:00 [facility] [id number] [facility] 2023-11-08 00:00:00 2023-11-08 00:00:00 [facility] [id number] [facility] 2023-11-07 00:00:00 2023-11-07 00:00:00 SUB ANNUAL [facility] WELLNESS V[facility] [id number] [facility] 2023-11-07 00:00:00 2023-11-07 00:00:00 OFFICE VISIT ESTAB PT LEVEL 4 [facility] [id number] [facility] 2023-09-20 00:00:00 2023-09-20 00:00:00 OFFICE VISIT ESTAB PT LEVEL 4 [facility] [id number] [facility] 2023-07-04 00:00:00 2023-07-04 00:00:00 OFFICE VISIT ESTAB PT LEVEL 3 [facility] [id number] [facility] 2023-06-07 00:00:00 2023-06-07 00:00:00 (TEL) [facility] [id number] [facility] 2023-04-25 00:00:00 2023-04-25 00:00:00 OFFICE VISIT ESTAB PT LEVEL 4 [facility] [id number] [facility] 2023-03-29 00:00:00 2023-03-29 00:00:00 (TEL) [facility] [id number] [facility] 2023-02-12 00:00:00 2023-02-12 00:00:00 (WEB) [facility] [id number] [facility] 2023-02-09 00:00:00 2023-02-09 00:00:00 (TEL) [facility] [id number] [facility] 2023-02-04 00:00:00 2023-02-04 00:00:00 (TEL) [facility] [id number] [facility] 2023-01-25 00:00:00 2023-01-25 00:00:00 OFFICE VISIT ESTAB PT LEVEL 3 [facility] [id number] [facility] 2022-12-20 00:00:00 2022-12-20 00:00:00 OFFICE VISIT ESTAB PT LEVEL 4 [facility] [id number] [facility] 2022-11-07 00:00:00 2022-11-07 00:00:00 OFFICE VISIT ESTAB PT LEVEL 4 [facility] [id number] [facility] 2022-10-16 00:00:00 2022-10-16 00:00:00 OFFICE VISIT ESTAB PT LEVEL 3 [facility] [id number] [facility] 2022-09-20 00:00:00 2022-09-20 00:00:00 OFFICE VISIT ESTAB PT LEVEL 3 [facility] [id number] [facility] 2022-09-20 00:00:00 2022-09-20 00:00:00 SUB ANNUAL MCR WELLNESS VISIT [facility] [id number] [facility] 2022-09-18 00:00:00 2022-09-18 00:00:00 (TEL) [facility] [id number] [facility] 2022-09-02 00:00:00 2022-09-02 00:00:00 (WEB) [facility] [id number] [facility] 2022-06-20 00:00:00 2022-06-20 00:00:00 OFFICE VISIT ESTAB PT LEVEL 3 [facility] [id number] [facility] 2022-06-01 00:00:00 2022-06-01 00:00:00 (TEL) [facility] [id number] [facility] 2022-05-03 00:00:00 2022-05-03 00:00:00 OFFICE VISIT ESTAB PT LEVEL 4 [facility] [id number] [facility] 2022-02-23 00:00:00 2022-02-23 00:00:00 OFFICE VISIT ESTAB PT LEVEL 4 [facility] [id number] [facility] 2021-12-07 00:00:00 2021-12-07 00:00:00 SUB ANNUAL MCR WELLNESS VISIT [facility] [id number] [facility] 2021-12-02 00:00:00 2021-12-02 00:00:00 OFFICE VISIT EST PT LEVEL 3 [facility] [id number] [facility] 2021-11-22 00:00:00 2021-11-22 00:00:00 (TEL) [facility] [id number] [facility] 2021-07-21 00:00:00 2021-07-21 00:00:00 OFFICE VISIT EST PT LEVEL 3 [facility] [id number] [facility] 2021-04-22 00:00:00 2021-04-22 00:00:00 OFFICE VISIT EST PT LEVEL 3 [facility] [id number] [facility] 2021-01-26 00:00:00 2021-01-26 00:00:00 OFFICE VISIT ESTAB PT LEVEL 4 [facility] [id number] [facility] 2021-01-26 00:00:00 2021-01-26 00:00:00 SUB ANNUAL [facility] WELLNESS VISIT [facility] [id number] [facility] 2020-05-06 00:00:00 2020-05-06 00:00:00 Outpatient [facility] [id number] [facility] 2020-04-28 00:00:00 2020-04-28 00:00:00 Outpatient STLMLC STLMLC [id number] [facility] 2019-11-18 23:27:00 2019-11-24 15:27:00 Inpatient 1 Cristhian Nuñez [facility] [id number] [facility] 2019-11-18 02:28:00 2019-11-18 02:28:00 [facility] [id number] [facility] 2019-05-23 08:40:00 2019-05-23 08:40:00 Outpatient [facility] [id number] [facility] 2019-02-14 09:40:00 2019-02-14 09:40:00 Outpatient [facility] [id number] [facility] 2019-02-10 09:40:00 2019-02-10 09:40:00 [address] [facility] [id number] [facility] [place] [facility] 2018-11-04 08:04:00 2018-11-04 08:04:00 [facility] [id number] [facility] 2018-10-28 09:26:00 2018-10-28 09:26:00 [address] [facility] [id number] [facility] 2018-10-22 11:40:00 2018-10-22 11:40:00 [facility] [id number] [facility] 2018-10-11 16:27:00 2018-10-11 16:27:00 [facility] [id number] [facility] 2018-10-11 14:50:00 2018-10-11 14:50:00 [facility] [id number] [facility] 2018-09-11 11:42:00 2018-09-11 11:42:00 [facility] [id number] [facility] 2018-02-28 13:30:00 2018-02-28 13:30:00 [facility] [id number] [facility] Results Test Description Test Time Test Comments Results Result Co mments Source HEMOGLOBIN [id number] 00:00:00* Test Item Value Reference Range Interpretation Comme nts HEMOGLOBIN A1c (test code = 4548-4) 6.3 % See_Comment H [Automated Pe[place] ge] The system which generated this result transmitted reference range: 4.2-5.6 %. The reference range was not used to interpret this result as normal/abnormal. CBC W/AUTO [id number] 00:00:00* Test Item Value Reference Range Interpretation Comme nts NUCLEATED RBCS (test code = 14794-4) 0.0 /100 WBC'S See_Comment [Automated messa ge] The system which generated this result transmitted reference range: 0.0 /100 WBC'S. The reference range was not used to interpret this result as normal/abnormal. ABSOLUTE EOSINOPHILS (test code = 23442-2) 0.36 K/UL See_Comment [Automated messa ge] The system which generated this result transmitted reference range: 0.00-0.50 K/UL. The reference range was not used to interpret this result as normal/abnormal. ABSOLUTE LYMPHOCYTES (test code = 12340-8) 2.86 K/UL See_Comment [Automated messa ge] The system which generated this result transmitted reference range: 1.00-4.00 K/UL. The reference range was not used to interpret this result as normal/abnormal. ABSOLUTE MONOCYTES (test code = 75120-8) 0.64 K/UL See_Comment [Automated messa ge] The system which generated this result transmitted reference range: 0.20-1.00 K/UL. The reference range was not used to interpret this result as normal/abnormal. ABSOLUTE NEUTROPHILS (test code = 08113-6) 4.96 K/UL See_Comment [Automated messa ge] The system which generated this result transmitted reference range: 1.50-7.50 K/UL. The reference range was not used to interpret this result as normal/abnormal. BASOPHILS (test code = 42480-6) 1.3 % EOSINOPHILS (test code = 38430-7) 4.0 % HEMATOCRIT (test code = 27937-8) 46.8 % See_Comment H [Automated messa ge] The system which generated this result transmitted reference range: 34.0-45.0 %. The reference range was not used to interpret this result as normal/abnormal. HEMOGLOBIN (test code = 718-7) 16.1 G/DL See_Comment H [Automated messa ge] The system which generated this result transmitted reference range: 11.5-15.5 G/DL. The reference range was not used to interpret this result as normal/abnormal. LYMPHOCYTES (test code = 70507-6) 31.8 % MCH (test code = 75226-7) 31.5 PG See_Comment [Automated messa ge] The system which generated this result transmitted reference range: 25.0-33.0 PG. The reference range was not used to interpret this result as normal/abnormal. MCHC (test code = 22154-5) 34.4 G/DL See_Comment [Automated messa ge] The system which generated this result transmitted reference range: 31.0-36.0 G/DL. The reference range was not used to interpret this result as normal/abnormal. MCV (test code = 41033-7) 91.6 fL See_Comment [Automated messa ge] The system which generated this result transmitted reference range: 80.0-99.0 fL. The reference range was not used to interpret this result as normal/abnormal. MONOCYTES (test code = 74862-5) 7.1 % NEUTROPHILS (test code = 60465-7) 55.2 % PLATELET COUNT (test code = 22307-0) 370 K/UL See_Comment [Automated messa ge] The system which generated this result transmitted reference range: 130-400 K/UL. The reference range was not used to interpret this result as normal/abnormal. RBC (test code = 23091-7) 5.11 M/UL See_Comment [Automated messa ge] The system which generated this result transmitted reference range: 3.80-5.40 M/UL. The reference range was not used to interpret this result as normal/abnormal. RDW (test code = 20650-4) 14.5 % See_Comment [Automated messa ge] The system which generated this result transmitted reference range: 11.5-15.0 %. The reference range was not used to interpret this result as normal/abnormal. WBC (test code = 96841-9) 9.0 K/UL See_Comment [Automated messa ge] The system which generated this result transmitted reference range: 3.5-11.0 K/UL. The reference range was not used to interpret this result as normal/abnormal. POC [id number] 05:54:54* Test Item Value Reference Range Interpretation Comme nts Glucose POC (test code = Glucose POC) 105 mg/dL 70-115 If you consi sophie your patient critically ill, the Rashaun-Accu Check Infrom II meter should not be used for Glucose determination. Draw a venous Glucose and send to the main Lab for analysis. RPR [id number] 12:46:36* Test Item Value Reference Range Interpretation Comme nts RPR Qual (test code = RPR Qual) Non-Reactive Non-Reactive Reactive Control (test code = Reactive Control) Reactive Weak Reactive Control (test code = Weak Reactive Control) Weak Reactive Non-Reactive Control (test c ode = Non-Reactive Control) Non-Reactive Lot # (test code = Lot #) [id number] N Expiration Dt (test code = Expiration Dt) 11-18-2020 N Lipid [id number] 08:35:10* Test Item Value Reference Range Interpretation Comme nts Cholesterol Total (test code = Cholesterol Total) 244 mg/dL N Low-risk leve l (desirable) - <200 mg/dlModerate-risk level (borderline) - 200-239 mg/dlHigh-risk level - ?240 mg/dl Triglycerides (test code = Triglycerides) 211 mg/dL N Normal - < 150 mg/dlBorderline high - 150-199 mg/dlHigh - 200-499 mg/dlVery high - ?500 mg/dl HDL (test code = HDL) 48.60 mg/dL N Lo w-risk level (desirable) - ?60 mg/dlHigh-risk level (undesirable) - <40 mg/dl LDL (test code = LDL) 153 mg/dL N The equation being used in this calculation is LDL = (Chol - HDL) - (Trig / 5) VLDL (test code = VLDL) 42 mg/dL 5-40 H The equation cecilia ng used in this calculation is VLDL = Trig / 5 Chol/HDL (test code = Chol/HDL) 5.0 ratio <=5.0 LDL/HDL Ratio (test code = LDL/HDL Ratio) 5 N The equati on being used in this calculation is LDL/HDL Ratio=LDL Calc/HDL Chol Thyroid Stimulating [id number] 08:35:10* Test Item Value Reference Range Interpretation Comme nts TSH (test code = TSH) 3.331 mcIU/mL 0.550-4.780 Hemoglobin [id number] 08:33:08* Test Item Value Reference Range Interpretation Comme nts Hemoglobin A1c (test code = Hemoglobin A1c) 6.0 % 4.0-5.8 H Diabetic >=6.5 %Prediabetes 5.7-6.4 %Normal <5.7 % Thyroid Para Parotid GlandThyroid Para Parotid Gland
--- NOTE | 2023-12-29 11:44 | RAD REPORT ---
Exam:Pelvis CLINICAL HISTORY: Pelvic pain FINDINGS: No fracture or dislocation seen
--- NOTE | 2023-12-29 11:44 | RAD REPORT ---
Exam:Hip Right 2 View HISTORY: Right hip pain FINDINGS: No fracture or dislocation seen. If the patient continues to have symptoms to suggest an occult fracture then MRI would be recommended
--- NOTE | 2023-12-29 11:51 | EDPHYS ---
Physician Documentation [facility] Name: Cat Menard Age: 63 yrs Sex: Female : 1960 Arrival Date: 12/29/2023 Time: 10:14 Bed 15 Private MD: ED Physician Ari Peraza HPI: 12/28 11:15 This 63 yrs old Female presents to ER via Ambulatory with complaints of Fall Injury, kb Hip Pain - right. 11:15 Pt is a 63 year old female who presents for right hip pain after a fall yesterday. kb States she fell out of bed and landed on her right hip. Pain aggravated by ambulation. Denies any other injuries or loc. . Historical: - Allergies: 10:25 No Known Allergies; db - PMHx: 10:25 Anxiety; Depression; Diabetes - NIDDM; Hypertension; db - Immunization history:: Adult Immunizations unknown. - Infectious Disease History:: Denies. - Immunization history: Last tetanus immunization: unknown. - Social history:: Smoking status: Patient denies any tobacco usage or history of. ROS: 11:14 Constitutional: As per HPI kb Exam: 11:14 Constitutional: This is a well developed, well nourished patient who is awake, alert, kb and in no acute distress. Head/Face: Normocephalic, atraumatic. ENT: Moist Mucous membranes Cardiovascular: Regular rate Respiratory: Respirations even and unlabored. No increased work of breathing. Talking in full sentences Abdomen/GI: Soft, non-tender. No distention Skin: Warm, dry with normal turgor. Normal color. Neuro: Awake and alert, GCS 15, oriented to person, place, time, and situation. 11:14 Musculoskeletal/extremity: Extremities: grossly normal except: noted in the right hip: pain, ROM: intact in all extremities, Circulation is intact in all extremities. Sensation intact. Weight bearing: able to fully bear weight, Vital Signs: 10:25 BP 145 / 93; Pulse 68; Resp 16; Temp 98.5(O); Pulse Ox 99% ; Weight 104.33 kg; Height 5 db ft. 4 in. ; 12:04 BP 148 / 88; Pulse 68; Resp 16; Pulse Ox 99% ; db 10:25 Body Mass Index 39.48 (104.33 kg, 162.56 cm) db Lidia Coma Score: 10:39 Eye Response: spontaneous(4). Motor Response: obeys commands(6). Verbal Response: db oriented(5). Total: 15. Trauma Score (Adult): 10:39 Eye Response: spontaneous(1); Verbal Response: oriented(1); Motor Response: obeys db commands(2); Systolic BP: > 89 mm Hg(4); Respiratory Rate: 10 to 29 per min(4); [place] Score: 15; Trauma Score: 12 MDM: 10:19 Medical Screening Exam initiated kb 11:17 Data reviewed: vital signs, nurses notes. kb 11:50 Differential diagnosis: contusion, fracture. Counseling: I had a detailed discussion kb with the patient and/or guardian regarding the historical points, exam findings, and any diagnostic results supporting the discharge/admit diagnosis, radiology results, the need for outpatient follow up, a family practitioner, to return to the emergency department if symptoms worsen or persist or if there are any questions or concerns that arise at home. 12/28 10:33 Order name: Hip Right 2 View XRAY; Complete Time: 11:49 kb 12/28 10:33 Order name: Pelvis XRAY; Complete Time: 11:49 kb Administered Medications: No medications were administered Disposition: 13:18 Co-signature as Attending Physician, Ari Peraza MD I reviewed the patient's care rt provided by the Advanced Practice Provider and agree with the diagnosis and treatment plan. Disposition Summary: 12/29/23 11:50 Discharge Ordered Notes: Location: Home kb Condition: Stable kb Diagnosis - Pain in right hip kb Followup: kb - With: Emergency Department - When: As needed - Reason: Worsening of condition Followup: kb - With: Private Physician - When: 2 - 3 days - Reason: Recheck today's complaints, Continuance of care, Re-evaluation by your physician Discharge Instructions: - Discharge Summary Sheet kb - Musculoskeletal Pain kb Forms: - Medication Reconciliation Form kb - Antibiotic Education kb - Prescription Opioid Use kb - Patient Portal Instructions kb - Leadership Thank You Letter kb Signatures: Dispatcher [employer] Caitlyn Roberto, EDELMIRA RINALDI-Leilani Balderrama RN RN Ari Fortune MD MD rt Corrections: (The following items were deleted from the chart) 10:34 10:34 Hip Right 2 View+RAD.RAD.BRZ ordered. EDMS EDMS 10:34 10:34 Pelvis+RAD.RAD.BRZ ordered. EDMS EDMS
--- NOTE | 2023-12-29 11:51 | ER ---
Nurse's Notes [facility] Name: Cat [place] Age: 63 yrs Sex: Female : 1960 Arrival Date: 12/29/2023 Time: 10:14 Bed 15 Private MD: Diagnosis: Pain in right hip Presentation: 12/28 10:25 Chief complaint: Patient states: LEFT HIP PAIN AFTER FALL YESTERDAY. AMBULATORY TO db ROOM. Coronavirus screen: Client denies travel out of the [place] in the last 14 days. At this time, the client does not indicate any symptoms associated with coronavirus-19. Ebola Screen: Patient negative for fever greater than or equal to 101.5 degrees Fahrenheit, and additional compatible Ebola Virus Disease symptoms Patient denies exposure to infectious person. Patient denies travel to an Ebola-affected area in the 21 days before illness onset. No symptoms or risks identified at this time. Initial Sepsis Screen: Does the patient meet any 2 criteria? No. Patient's initial sepsis screen is negative. Does the patient have a suspected source of infection? No. Patient's initial sepsis screen is negative. Risk Assessment: Do you want to hurt yourself or someone else? Patient reports no desire to harm self or others. Onset of symptoms was December 29, 2023. 10:25 Method Of Arrival: Ambulatory db 10:25 Acuity: GILMAR 4 db 10:39 Care prior to arrival: None. Mechanism of Injury: Fall from standing position. Trauma db event details: Injury occurred in the [facility]. Triage Assessment: 10:25 General: Appears in no apparent distress. comfortable, Behavior is calm, cooperative, db appropriate for age. Pain: Complains of pain in left hip and left leg. Neuro: Level of Consciousness is awake, alert, obeys commands, Oriented to person, place, time, situation. Respiratory: Airway is patent Respiratory effort is even, unlabored, Respiratory pattern is regular, symmetrical. Musculoskeletal: Circulation, motion, and sensation intact. Capillary refill < 3 seconds, Range of motion: intact in all extremities. Trauma Activation: Not Applicable Physician: ED Physician; Name: ; Notified At: ; Arrived At: Physician: General Surgeon; Name: ; Notified At: ; Arrived At: Physician: Radiology; Name: ; Notified At: ; Arrived At: Physician: Respiratory; Name: ; Notified At: ; Arrived At: Physician: Lab; Name: ; Notified At: ; Arrived At: Historical: - Allergies: 10:25 No Known Allergies; db - PMHx: 10:25 Anxiety; Depression; Diabetes - NIDDM; Hypertension; db - Immunization history:: Adult Immunizations unknown. - Infectious Disease History:: Denies. - Immunization history: Last tetanus immunization: unknown. - Social history:: Smoking status: Patient denies any tobacco usage or history of. Screenin:38 [facility] ED Fall Risk Assessment (Adult) History of falling in the last 3 months, db including since admission Yes- single mechanical fall (1 pt) Confusion or Disorientation No (0 pts) Intoxicated or Sedated No (0 pts) Impaired Gait No (0 pts) Mobility Assist Device Used No (0 pt) Altered Elimination No (0 pt) Score/Fall Risk Level 0 - 2 = Low Risk Oriented to surroundings, Maintained a safe environment. Abuse screen: Denies threats or abuse. Denies injuries from another. Nutritional screening: No deficits noted. Tuberculosis screening: No symptoms or risk factors identified. Primary Survey: 10:39 NO uncontrolled hemorrhage observed. A: The client is awake and alert. The airway is db patent. Breathing/Chest: Spontaneous respiratory effort, equal unlabored respirations, breath sounds clear bilaterally, regular pattern, symmetrical chest rise and fall. Respiratory effort: spontaneous, unlabored. Circulation: No external hemorrhage present. Regular and strong central pulse, skin warm/dry/normal color. Disability Client is alert. Exposure/Environment: There is no evidence of uncontrolled external bleeding. Reassessment Alertness and Airway: Awake and alert. The airway is patent. Airway Patent Breathing: Spontaneous respiratory effort, equal unlabored respirations, breath sounds clear bilaterally, regular pattern with symmetrical chest rise and fall. Circulation: No external hemorrhage noted. Regular and strong central pulse, skin warm/dry/normal color. Disability: Alert. Assessment: 10:38 Reassessment: Patient appears in no apparent distress at this time. SEE TRIAGE FOR db INITIAL ASSESSMENT. 11:13 Reassessment: XRAY IS AT PATIENT BEDSIDE. db 12:04 Reassessment: Patient appears in no apparent distress at this time. Patient and/or db family updated on plan of care and expected duration. Pain level reassessed. Patient is alert, oriented x 3, equal unlabored respirations, skin warm/dry/pink. General: Appears in no apparent distress. comfortable, Behavior is calm, cooperative. Neuro: Level of Consciousness is awake, alert, obeys commands, Oriented to person, place, time, situation. Vital Signs: 10:25 BP 145 / 93; Pulse 68; Resp 16; Temp 98.5(O); Pulse Ox 99% ; Weight 104.33 kg; Height 5 db ft. 4 in. ; 12:04 BP 148 / 88; Pulse 68; Resp 16; Pulse Ox 99% ; db 10:25 Body Mass Index 39.48 (104.33 kg, 162.56 cm) db Meridian Coma Score: 10:39 Eye Response: spontaneous(4). Motor Response: obeys commands(6). Verbal Response: db oriented(5). Total: 15. Trauma Score (Adult): 10:39 Eye Response: spontaneous(1); Verbal Response: oriented(1); Motor Response: obeys db commands(2); Systolic BP: > 89 mm Hg(4); Respiratory Rate: 10 to 29 per min(4); Meridian Score: 15; Trauma Score: 12 ED Course: 10:17 Patient arrived in ED. ra3 10:19 [facility]ait[facility]C [facility]. kb 10:19 Ari Peraza MD is Attending Physician. kb 10:25 Arm band placed on Patient placed. db 10:35 Leilani Franco, RN is Primary Nurse. db 10:36 Triage completed. db 10:38 Patient has correct armband on for positive identification. Bed in low position. Call db light in reach. Side rails up X 1. Pulse ox on. NIBP on. Door closed. Noise minimized. Lights dimmed. Pillow given. 11:25 Hip Right 2 View XRAY In Process Unspecified. EDMS 11:25 Pelvis XRAY In Process Unspecified. EDMS 12:03 Patient maintains SpO2 saturation greater than 95% on room air. db 12:04 Provided Education on: DISCHARGE AND FOLLOWUP. db 12:04 No provider procedures requiring assistance completed. Patient did not have IV access db during this emergency room visit. Administered Medications: No medications were administered Medication: 10:38 VIS not applicable for this client. db Outcome: 11:50 Discharge ordered by . kb 12:03 Discharged to home ambulatory, with family, db 12:03 Condition: stable 12:03 Patient's length of stay was not longer than 2 hours. 12:04 Discharge instructions given to patient, Instructed on discharge instructions, follow db up and referral plans. 12:05 Patient left the ED. db Signatures: Dispatcher [employer] Caitlyn Roberto, EDELMIRA RINALDI-Leilani Balderrama, RN RN Renata Nunez ra3
[2023-12-29 12:10] VITALS: TEMP 98.5; O2SAT 99
[2023-12-29 12:11] VITALS: BP 148/88
== END 2023-12-29 12:05 | disposition home or self-care (01) ==
LOC: ER 10:14
DX: M25.551 Pain in right hip (principal); W06.XXXA Fall from bed, initial encounter
CPT/HCPCS: 72170; 99283

== ENCOUNTER 2024-02-22 19:34 | Emergency (ER) | payer OTHER ==
--- OUTSIDE RECORDS SUMMARY | 2024-02-22 19:38 | XMS REPORT | Continuity of Care Document ---
Author Name Unknown Address [address] [facility] [address] [place] [address] [facility] Address [address] [facility] [address] [place] [address] Care Team Providers Care Assistant Shift Supervisor Name Role Phone Perlita Bernal Attending Clinician Unavailable Cristhian Nuñez Attending Clinician Unavailable Cristhian Nuñez Attending Clinician Unavailable CESAR BRUNO Attending Clinician Cristhian Mahan Admitting Clinician Unavailable Payers Payer Name Policy Type Policy Number Effective Date Expirati on Date Source 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 Problem [facility] [id number] Long-term (current) use of injectable non-insuli n antidiabet ic drugs Problem Common [facility] [id number] Statin intoleranc e Problem [facility] [id number] Non-compli ant behavior Problem Common [facility] [id number] Type 2 diabetes mellitus with hyperglyce donell, without long-term current use of insulin Problem Common [facility] [id number] Spine pain Problem Comm on [facility] Hypertensi on Hypertensi on Problem Common [facility] Type II diabetes mellitus well controlled Diabetes mellitus type 2, controlled Problem Common [facility] Localized swelling, mass and lump, neck Mass of thyroid region Problem Common [facility] Hyperlipid emia Hyperlipid emia Problem [facility] Generalize d abdominal pain Generalize d abdominal pain Problem [facility] [id number] Recurrent major depressive disorder, in partial remission Problem [facility] Vitreous degenerati on PVD (posterior vitreous detachment ) Problem [facility] [id number] Fibromyalg ia Problem [facility] 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 Problem [facility] Osteoarthr itis of multiple joints Osteoarthr itis, multiple sites Problem Common [facility] [id number] Irritable bowel syndrome with constipati on Problem [facility] [id number] Irritable bowel syndrome with both constipati on and diarrhea Problem [facility] [id number] Pain in left knee Problem [facility] [id number] Other chronic pain Problem [facility] Comprehens herman eye examinatio n (procedure ) Routine eye exam Problem [facility] [id number] Cervicalgi a Problem [facility] [id number] Current severe episode of major depressive disorder without psychotic features without prior episode Problem [facility] [id number] Sciatica of right side Problem [facility] Allergies, Adverse Reactions, Alerts Allergy Name Allergy Type Status Severity Reaction(s) Onset Date Inactive Date Treating Clinician Comments Source No Known Allergie s Drug Active [facility] lisinopr il lisinopr il Active bad cough [facility] lurasido ne lurasido ne Active spaced out feeling [facility] vortioxe adán vortioxe adán Active vomit [facility] Social History Social Habit Start Date Stop Date Quantity Comments Source History of Tobacco Use [facility] Sex Assigned At [facility] Smoking Status Start Date Stop Date Source Never Smoker [facility] Current Smoker 2023-07-04 00:00:00 [facility] Medications Ordered Medication Name Filled Medication Name Start Date Stop Date Current Medication? Ordering Clinician Indication Dosage Frequency Signature (SIG) Comments Components Source Vraylar 1.5 MG Vraylar 1.5 MG 2023-02 00:00: 00 No 1{capsu le} QD Vraylar 1.5 MG hydroCHLORO thiazide 25 MG hydroCHLORO thiazide [...] (IIV3) - SDS - 0.5mL Unknown Completed [facility] Vital Signs Vital Name Observation Time Observation Value Comments S jacobo Height/Length Measured 2019-11-19 02:48:45 Height/Length Measured 2019-11-19 02:44:35 height 2024-02-06 08:00:00 64 [in_i] Commo n [facility] weight 2024-02-06 08:00:00 260.4 [lb_av] Co mmon [facility] temperature 2024-02-06 08:00:00 98.2 [degF] Com mon [facility] bmi 2024-02-06 08:00:00 44.69 kg/m2 Comm on [facility] oximetry 2024-02-06 08:00:00 95 % Commo n [facility] respiratory rate 2024-02-06 08:00:00 16 /min Common [facility] blood pressure systolic 2024-02-06 08:00:00 130 mm[Hg] Common [facility] blood pressure diastolic 2024-02-06 08:00:00 78 mm[Hg] Common [facility] height 2024-01-15 16:00:00 64 [in_i] Commo n [facility] weight 2024-01-15 16:00:00 250 [lb_av] Comm on [facility] bmi 2024-01-15 16:00:00 42.91 kg/m2 Comm on [facility] height 2023-11-26 11:20:00 64 [in_i] Commo n [facility] weight 2023-11-26 11:20:00 254 [lb_av] Comm on [facility] 2023-11-26 11:20:00 43.59 kg/m2 Comm on [facility] height 2023-11-07 10:40:00 64 [in_i] Commo n [facility] weight 2023-11-07 10:40:00 254.6 [lb_av] Co mmon [facility] temperature 2023-11-07 10:40:00 97.3 [degF] Com mon [facility] bmi 2023-11-07 10:40:00 43.7 kg/m2 Commo n [facility] oximetry 2023-11-07 10:40:00 96 % Commo n [facility] respiratory rate 2023-11-07 10:40:00 15 /min Common [facility] blood pressure systolic 2023-11-07 10:40:00 118 mm[Hg] Common [facility] blood pressure diastolic 2023-11-07 10:40:00 64 mm[Hg] [facility] height 2023-11-07 10:40:00 64 [in_i] Commo n [facility] weight 2023-11-07 10:40:00 254.6 [lb_av] Co mmon [facility] temperature 2023-11-07 10:40:00 97.3 [degF] Com mon [facility] bmi 2023-11-07 10:40:00 43.7 kg/m2 Commo n [facility] oximetry 2023-11-07 10:40:00 96 % Commo n [facility] respiratory rate 2023-11-07 10:40:00 15 /min [facility] blood pressure systolic 2023-11-07 10:40:00 118 mm[Hg] Common Spiri t [facility] blood pressure diastolic 2023-11-07 10:40:00 64 mm[Hg] [facility] height 2023-11-07 10:40:00 64 [in_i] Commo n [facility] weight 2023-11-07 10:40:00 254.6 [lb_av] Co mmon [facility] temperature 2023-11-07 10:40:00 97.3 [degF] Com mon [facility] bmi 2023-11-07 10:40:00 43.7 kg/m2 Commo n [facility] oximetry 2023-11-07 10:40:00 96 % Commo n [facility] respiratory rate 2023-11-07 10:40:00 15 /min [facility] blood pressure systolic 2023-11-07 10:40:00 118 mm[Hg] [facility] blood pressure diastolic 2023-11-07 10:40:00 64 mm[Hg] Common Sp[facility] height 2023-09-20 11:40:00 64 [in_i] Commo n [facility] weight 2023-09-20 11:40:00 255 [lb_av] Comm on [facility] bmi 2023-09-20 11:40:00 43.77 kg/m2 Comm on [facility] height 2023-07-04 08:00:00 64 [in_i] Commo n [facility] weight 2023-07-04 08:00:00 255.4 [lb_av] Co mmon [facility] temperature 2023-07-04 08:00:00 97.1 [degF] Com mon [facility] bmi 2023-07-04 08:00:00 43.83 kg/m2 Comm on [facility] oximetry 2023-07-04 08:00:00 97 % Commo n [facility] respiratory rate 2023-07-04 08:00:00 16 /min Common [facility] height 2023-04-25 11:20:00 64 [in_i] Commo n [facility] weight 2023-04-25 11:20:00 246 [lb_av] Comm on [facility] bmi 2023-04-25 11:20:00 42.22 kg/m2 Comm on [facility] height 2023-01-25 15:00:00 64 [in_i] Commo n [facility] weight 2023-01-25 15:00:00 246.8 [lb_av] Co mmon [facility] temperature 2023-01-25 15:00:00 97.9 [degF] Com [facility] bmi 2023-01-25 15:00:00 42.36 kg/m2 Comm on [facility] oximetry 2023-01-25 15:00:00 96 % Commo n [facility] respiratory rate 2023-01-25 15:00:00 16 /min Common [facility] blood pressure systolic 2023-01-25 15:00:00 139 mm[Hg] Common [facility] blood pressure diastolic 2023-01-25 15:00:00 66 mm[Hg] Common [facility] height 2022-12-20 11:40:00 64 [in_i] Commo n [facility] weight 2022-12-20 11:40:00 228 [lb_av] Comm on [facility] bmi 2022-12-20 11:40:00 39.13 kg/m2 Comm on [facility] height 2022-11-07 10:00:00 64 [in_i] Commo n [facility] weight 2022-11-07 10:00:00 246.8 [lb_av] Co mmon [facility] temperature 2022-11-07 10:00:00 97.3 [degF] Com mon [facility] bmi 2022-11-07 10:00:00 42.36 kg/m2 Comm on [facility] oximetry 2022-11-07 10:00:00 95 % Commo n [facility] respiratory rate 2022-11-07 10:00:00 16 /min [facility] height 2022-10-16 14:00:00 64 [in_i] Commo n [facility] weight 2022-10-16 14:00:00 247.0 [lb_av] Co mmon [facility] temperature 2022-10-16 14:00:00 97.4 [degF] Com [facility] bmi 2022-10-16 14:00:00 42.39 kg/m2 Comm on [facility] oximetry 2022-10-16 14:00:00 96 % Commo n [facility] respiratory rate 2022-10-16 14:00:00 16 /min Common [facility] blood pressure systolic 2022-10-16 14:00:00 139 mm[Hg] [facility] blood pressure diastolic 2022-10-16 14:00:00 84 mm[Hg] [facility] height 2022-09-20 09:40:00 64 [in_i] Commo n [facility] weight 2022-09-20 09:40:00 248.0 [lb_av] Co on [facility] temperature 2022-09-20 09:40:00 97.7 [degF] Com mon [facility] bmi 2022-09-20 09:40:00 42.56 kg/m2 Comm on [facility] oximetry 2022-09-20 09:40:00 98 % Commo n [facility] respiratory rate 2022-09-20 09:40:00 16 /min [facility] blood pressure systolic 2022-09-20 09:40:00 135 mm[Hg] [facility] blood pressure diastolic 2022-09-20 09:40:00 72 mm[Hg] [facility] height 2022-09-20 09:20:00 64 [in_i] Commo n [facility] weight 2022-09-20 09:20:00 248.0 [lb_av] Co mmon [facility] temperature 2022-09-20 09:20:00 97.7 [degF] Com mon [facility] bmi 2022-09-20 09:20:00 42.56 kg/m2 Comm on [facility] oximetry 2022-09-20 09:20:00 98 % Commo n [facility] respiratory rate 2022-09-20 09:20:00 16 /min [facility] blood pressure systolic 2022-09-20 09:20:00 135 mm[Hg] [facility] blood pressure diastolic 2022-09-20 09:20:00 72 mm[Hg] Common [facility] height 2022-06-20 14:40:00 64 [in_i] Commo n [facility] weight 2022-06-20 14:40:00 249.0 [lb_av] Co mmon [facility] temperature 2022-06-20 14:40:00 97.3 [degF] Com mon [facility] bmi 2022-06-20 14:40:00 42.74 kg/m2 Comm on [facility] oximetry 2022-06-20 14:40:00 97 % Commo n [facility] respiratory rate 2022-06-20 14:40:00 16 /min [facility] blood pressure systolic 2022-06-20 14:40:00 138 mm[Hg] [facility] blood pressure diastolic 2022-06-20 14:40:00 78 mm[Hg] Common [facility] height 2022-05-03 08:00:00 64 [in_i] Commo n [facility] weight 2022-05-03 08:00:00 263 [lb_av] Comm on [facility] bmi 2022-05-03 08:00:00 45.14 kg/m2 Comm on [facility] height 2022-02-23 16:40:00 64 [in_i] Commo n [facility] weight 2022-02-23 16:40:00 263.6 [lb_av] Co mmon [facility] temperature 2022-02-23 16:40:00 97.1 [degF] Com mon [facility] bmi 2022-02-23 16:40:00 45.24 kg/m2 Comm on [facility] oximetry 2022-02-23 16:40:00 97 % Commo n [facility] respiratory rate 2022-02-23 16:40:00 17 /min [facility] blood pressure systolic 2022-02-23 16:40:00 130 mm[Hg] Common [facility] blood pressure diastolic 2022-02-23 16:40:00 74 mm[Hg] Common [facility] height 2021-12-07 14:00:00 64 [in_i] Commo n [facility] weight 2021-12-07 14:00:00 245.0 [lb_av] Co mmon [facility] bmi 2021-12-07 14:00:00 42.05 kg/m2 Comm on [facility] height 2021-12-02 13:00:00 64 [in_i] Commo n [facility] weight 2021-12-02 13:00:00 245 [lb_av] Comm on [facility] bmi 2021-12-02 13:00:00 42.05 kg/m2 Comm on [facility] height 2021-07-21 08:00:00 64 [in_i] Commo n [facility] weight 2021-07-21 08:00:00 245 [lb_av] Comm on [facility] bmi 2021-07-21 08:00:00 42.05 kg/m2 Comm on [facility] height 2021-04-22 16:00:00 64 [in_i] Commo n [facility] weight 2021-04-22 16:00:00 250 [lb_av] Comm on [facility] bmi 2021-04-22 16:00:00 42.91 kg/m2 Comm on [facility] height 2021-01-26 09:20:00 64 [in_i] Commo n [facility] weight 2021-01-26 09:20:00 256 [lb_av] Comm on [facility] temperature 2021-01-26 09:20:00 97.7 [degF] Com mon [facility] bmi 2021-01-26 09:20:00 43.94 kg/m2 Comm on [facility] oximetry 2021-01-26 09:20:00 99 % Commo n [facility] respiratory rate 2021-01-26 09:20:00 16 /min Common [facility] blood pressure systolic 2021-01-26 09:20:00 132 mm[Hg] Common [facility] blood pressure diastolic 2021-01-26 09:20:00 66 mm[Hg] [facility] height 2021-01-26 10:40:00 64 [in_i] Commo n [facility] weight 2021-01-26 10:40:00 250.8 [lb_av] Co mmon [facility] temperature 2021-01-26 10:40:00 97.7 [degF] Com mon [facility] bmi 2021-01-26 10:40:00 43.05 kg/m2 Comm on [facility] oximetry 2021-01-26 10:40:00 99 % Commo n [facility] respiratory rate 2021-01-26 10:40:00 16 /min [facility] blood pressure systolic 2021-01-26 10:40:00 132 mm[Hg] [facility] blood pressure diastolic 2021-01-26 10:40:00 66 mm[Hg] [facility] Height/Length Measured 2021-03-08 12:43:23 162.5 cm Weight Dosing 2021-03-08 12:43:23 102.00 kg Height/Length Measured 2021-03-08 12:39:46 162.5 cm Weight Dosing 2021-03-08 12:39:46 102.00 kg Height/Length Measured 2021-03-08 12:38:42 162.5 cm Weight Dosing 2021-03-08 12:38:42 102.00 kg Height/Length Measured 2021-03-08 12:37:56 162.5 cm Weight Dosing 2021-03-08 12:37:56 102.00 kg Encounters Start Date/Time End Date/Time Encounter Type Admission Type Attending [facility] Care Facility Care Department Encounter ID Source 2023-09-19 15:45:00 Outpatient Perlita Bernal STLMLC STL[facility]C [id number] [facility] 2023-07-02 07:38:00 Outpatient Perlita Bernal STLMLC ST[facility] [id number] [facility] 2023-06-06 07:24:00 Outpatient Perlita Bernal STLMLC STL[facility]C [id number] [facility] 2023-05-29 08:54:00 Outpatient Perlita Bernal STLMLC STLMLC [id number] [facility] 2023-04-23 09:34:00 Outpatient Perlita Bernal STLMLC STLMLC [id number] [facility] 2023-01-24 13:24:00 Outpatient Perlita Bernal STLMLC STLMLC [id number] [facility] 2022-09-20 09:21:00 Outpatient Perlita Bernal STLMLC STLMLC [id number] [facility] 2022-09-19 08:56:00 Outpatient Perlita Bernal STLMLC STLMLC [id number] [facility] 2022-06-19 13:38:01 Outpatient Perlita Bernal STLMLC STLMLC [id number] [facility] 2022-05-08 13:51:00 Outpatient Perlita Bernal STLMLC STLMLC [id number] [facility] 2022-05-02 10:25:00 Outpatient Perlita Bernal STLMLC STLMLC [id number] [facility] 2022-02-21 14:40:00 Outpatient Perlita Bernal STLMLC STLMLC [id number] [facility] 2021-11-22 13:32:00 Outpatient Perlita Bernal STJOSE STLMLC [id number] [facility] 2021-09-14 14:42:00 Outpatient Perlita Bernal STJOSE STLMLC [id number] [facility] 2021-07-25 09:15:00 Outpatient Perlita Benral STJOSE STLMLC [id number] [facility] 2021-03-16 14:35:10 Outpatient Perlita Bernal STJOSE STLMLC [id number] [facility] 2021-03-16 12:41:42 Outpatient Perlita Bernal STJOSE STLMLC [id number] [facility] 2021-03-16 12:22:33 Outpatient Perlita Bernal STJOSE STLMLC [id number] [facility] 2021-03-16 12:21:55 Outpatient Perlita Bernal STJOSE STLMLC [id number] [facility] 2021-03-16 11:16:58 Outpatient Perlita Bernal STJOSE STLMLC [id number] [facility] 2021-03-16 11:16:49 Outpatient Perlita Bernal STLMRHONDA STLMLC [id number] [facility] 2019-11-18 23:27:00 Inpatient 1 Cristhian Nuñez [facility] PS[facility] [id number] [facility] 2019-01-05 08:09:[address] [facility] [id number] [facility] 2024-02-06 00:00:00 2024-02-06 00:00:00 OFFICE VISIT ESTAB PT LEVEL 4 STLMLC STLMLC [id number] [facility] 2024-02-06 00:00:00 2024-02-06 00:00:00 (TEL) STLMLC STLMLC [id number] [facility] 2024-01-23 00:00:00 2024-01-23 00:00:00 (TEL) STLMLC STLMLC [id number] [facility] 2024-01-15 00:00:00 2024-01-15 00:00:00 OFFICE VISIT ESTAB PT LEVEL 4 STLMLC STLMLC [id number] [facility] 2023-12-28 00:00:00 2023-12-28 00:00:00 (TEL) STLMLC STLMLC [id number] [facility] 2023-11-26 00:00:00 2023-11-26 00:00:00 OFFICE VISIT ESTAB PT LEVEL 4 STLMLC STLMLC [id number] [facility] 2023-11-23 00:00:00 2023-11-23 00:00:00 (TEL) STLMLC STLMLC [id number] [facility] 2023-11-08 00:00:00 2023-11-08 00:00:00 (TEL) STLMLC STLMLC [id number] [facility] 2023-11-07 00:00:00 2023-11-07 00:00:00 SUB ANNUAL [facility] WELLNESS VISIT STLMLC STLMLC [id number] [facility] 2023-11-07 00:00:00 2023-11-07 00:00:00 OFFICE VISIT ESTAB PT LEVEL 4 STLMLC STLMLC [id number] [facility] 2023-09-20 00:00:00 2023-09-20 00:00:00 OFFICE VISIT ESTAB PT LEVEL 4 STLMLC STLMLC [id number] [facility] 2023-07-04 00:00:00 2023-07-04 00:00:00 OFFICE VISIT ESTAB PT LEVEL 3 STLMLC STLMLC [id number] [facility] 2023-06-07 00:00:00 2023-06-07 00:00:00 (TEL) STLMLC STLMLC [id number] [facility] 2023-04-25 00:00:2023-04-25 00:00:00 OFFICE VISIT ESTAB PT LEVEL 4 STLMLC STLMLC [id number] [facility] 2023-03-29 00:00:00 2023-03-29 00:00:00 (TEL) STLMLC STLMLC [id number] [facility] 2023-02-12 00:00:00 2023-02-12 00:00:00 (WEB) STLMLC STLMLC [id number] [facility] 2023-02-09 00:00:00 2023-02-09 00:00:00 (TEL) STLMLC STLMLC [id number] [facility] 2023-02-04 00:00:00 2023-02-04 00:00:00 (TEL) STLMLC STLMLC [id number] [facility] 2023-01-25 00:00:00 2023-01-25 00:00:00 OFFICE VISIT ESTAB PT LEVEL 3 STLMLC STLMLC [id number] [facility] 2022-12-20 00:00:00 2022-12-20 00:00:00 OFFICE VISIT ESTAB PT LEVEL 4 STLMLC STLMLC [id number] [facility] 2022-11-07 00:00:00 2022-11-07 00:00:00 OFFICE VISIT ESTAB PT LEVEL 4 STLMLC STLMLC [id number] [facility] 2022-10-16 00:00:00 2022-10-16 00:00:00 OFFICE VISIT ESTAB PT LEVEL 3 STLMLC STLMLC [id number] [facility] 2022-09-20 00:00:00 2022-09-20 00:00:00 OFFICE VISIT ESTAB PT LEVEL 3 STLMLC STLMLC [id number] [facility] 2022-09-20 00:00:00 2022-09-20 00:00:00 SUB ANNUAL [facility] WELLNESS VISIT STLMLC STLMLC [id number] [facility] 2022-09-18 00:00:00 2022-09-18 00:00:00 (TEL) STLMLC STLMLC [id number] [facility] 2022-09-02 00:00:00 2022-09-02 00:00:00 (WEB) STLMLC STLMLC [id number] [facility] 2022-06-20 00:00:00 2022-06-20 00:00:00 OFFICE VISIT ESTAB PT LEVEL 3 STLMLC STLMLC [id number] [facility] 2022-06-01 00:00:00 2022-06-01 00:00:00 (TEL) STLMLC STLMLC [id number] [facility] 2022-05-03 00:00:00 2022-05-03 00:00:00 OFFICE VISIT ESTAB PT LEVEL 4 STLMLC STLMLC [id number] [facility] 2022-02-23 00:00:00 2022-02-23 00:00:00 OFFICE VISIT ESTAB PT LEVEL 4 STLMLC STLMLC [id number] [facility] 2021-12-07 00:00:00 2021-12-07 00:00:00 SUB ANNUAL [facility] WELLNESS VISIT STLMLC STLMLC [id number] [facility] 2021-12-02 00:00:00 2021-12-02 00:00:00 OFFICE VISIT EST PT LEVEL 3 STLMLC STLMLC [id number] [facility] 2021-11-22 00:00:00 2021-11-22 00:00:00 (TEL) STLMLC STLMLC [id number] [facility] 2021-07-21 00:00:00 2021-07-21 00:00:00 OFFICE VISIT EST PT LEVEL 3 STLMLC STLMLC [id number] [facility] 2021-04-22 00:00:00 2021-04-22 00:00:00 OFFICE VISIT EST PT LEVEL 3 STLMLC STLMLC [id number] [facility] 2021-01-26 00:00:00 2021-01-26 00:00:00 OFFICE VIS[facility]AB [id number] 2021-01-26 00:00:00 2021-01-26 00:00:00 SUB ANNUAL [facility] WELLNESS VISIT STLMLC STLMLC [id number] [facility] 2020-05-06 00:00:00 2020-05-06 00:00:00 Outpatient STLMLC STLMLC [id number] [facility] 2020-04-28 00:00:00 2020-04-28 00:00:00 Outpatient STLMLC STLC [id number] [facility] 2019-11-18 23:27:00 2019-11-24 15:27:00 Inpatient Cristhian Lima Cristhian Nuñez [facility] PSY [id number] [facility] 2019-11-18 02:28:00 2019-11-18 02:28:00 Emergency E CESAR BRUNO [facility] [id number] [facility] 2019-05-23 08:40:00 2019-05-23 08:40:00 [facility] [id number] [facility] 2019-02-14 09:40:00 2019-02-14 09:40:00 [facility] [id number] [facility] 2019-02-10 09:40:00 2019-02-10 09:40:00 [place] [place] [facility] [id number] [facility] 2018-11-04 08:04:00 2018-11-04 08:04:[address] [facility] [address] [facility] [place] [facility] [id number] [facility] 2018-10-28 09:26:00 2018-10-28 09:26:00 [facility] [id number] [facility] 2018-10-22 11:40:00 2018-10-22 11:40:00 [facility] [id number] 2018-10-11 16:27:00 2018-10-11 16:27:00 Outpatient [facility] [id number] [facility] 2018-10-11 14:50:00 2018-10-11 14:50:00 Outpatient [facility] [id number] [facility] 2018-09-11 11:42:00 2018-09-11 11:42:00 Outpatient [facility] [id number] [facility] 2018-02-28 13:30:00 2018-02-28 13:30:00 Outpatient [facility] [id number] [facility] Results Test Description Test Time Test Comments Results Result Co mments Source HEMOGLOBIN [id number] 00:00:00* Test Item Value Reference Range Interpretation Comme nts A1C (test code = 4548-4) 7.0 HEMOGLOBIN [id number] 00:00:00* Test Item Value Reference Range Interpretation Comme nts HEMOGLOBIN A1c (test code = 4548-4) 6.3 % See_Comment H [Automated messa ge] The system which generated this result transmitted reference range: 4.2-5.6 %. The reference range was not used to interpret this result as normal/abnormal. CBC W/AUTO [id number] 00:00:00* Test Item Value Reference Range Interpretation Comme nts NUCLEATED RBCS (test code = 69271-8) 0.0 /100 WBC'S See_Comment [Automated messa ge] The system which generated this result transmitted reference range: 0.0 /100 WBC'S. The reference range was not used to interpret this result as normal/abnormal. ABSOLUTE EOSINOPHILS (test code = 05919-7) 0.36 K/UL See_Comment [Automated messa ge] The system which generated this result transmitted reference range: 0.00-0.50 K/UL. The reference range was not used to interpret this result as normal/abnormal. ABSOLUTE LYMPHOCYTES (test code = 45580-1) 2.86 K/UL See_Comment [Automated messa ge] The system which generated this result transmitted reference range: 1.00-4.00 K/UL. The reference range was not used to interpret this result as normal/abnormal. ABSOLUTE MONOCYTES (test code = 25893-1) 0.64 K/UL See_Comment [Automated messa ge] The system which generated this result transmitted reference range: 0.20-1.00 K/UL. The reference range was not used to interpret this result as normal/abnormal. ABSOLUTE NEUTROPHILS (test code = 40475-1) 4.96 K/UL See_Comment [Automated messa ge] The system which generated this result transmitted reference range: 1.50-7.50 K/UL. The reference range was not used to interpret this result as normal/abnormal. BASOPHILS (test code = 33775-8) 1.3 % EOSINOPHILS (test code = 13049-2) 4.0 % HEMATOCRIT (test code = 15972-8) 46.8 % See_Comment H [Automated messa ge] [...] result as normal/abnormal. LYMPHOCYTES (test code = 82494-0) 31.8 % MCH (test code = 69377-8) 31.5 PG See_Comment [Automated messa ge] The system which generated this result transmitted reference range: 25.0-33.0 PG. The reference range was not used to interpret this result as normal/abnormal. MCHC (test code = 17564-4) 34.4 G/DL See_Comment [Automated messa ge] The system which generated this result transmitted reference range: 31.0-36.0 G/DL. The reference range was not used to interpret this result as normal/abnormal. MCV (test code = 92951-3) 91.6 fL See_Comment [Automated messa ge] The system which generated this result transmitted reference range: 80.0-99.0 fL. The reference range was not used to interpret this result as normal/abnormal. MONOCYTES (test code = 93513-1) 7.1 % NEUTROPHILS (test code = 20294-3) 55.2 % PLATELET COUNT (test code = 32925-9) 370 K/UL See_Comment [Automated [employer]] The system which generated this result transmitted reference range: 130-400 K/UL. The reference range was not used to interpret this result as normal/abnormal. RBC (test code = 34698-1) 5.11 M/UL See_Comment [Automated [employer]] The system which generated this result transmitted reference range: 3.80-5.40 M/UL. The reference range was not used to interpret this result as normal/abnormal. RDW (test code = 45843-6) 14.5 % See_Comment [Automated [employer]] The system which generated this result transmitted reference range: 11.5-15.0 %. The reference range was not used to interpret this result as normal/abnormal. WBC (test code = 72736-5) 9.0 K/UL See_Comment [Automated messa Findery] The system which generated this result transmitted reference range: 3.5-11.0 K/UL. The reference range was not used to interpret this result as normal/abnormal. POC [id number] 05:54:54* Test Item Value Reference Range Interpretation Comme nts Glucose POC (test code = Glucose POC) 105 mg/dL 70-115 If you consi sophie your patient critically ill, the Rashaun-Accu Check Infrom II meter should not be used for Glucose determination. Draw a venous Glucose and send to the main Lab for analysis. RPR [id number] 12:46:36* Test Item Value Reference Range Interpretation [...] code = Expiration Dt) 11-18-2020 N Lipid [id number] 08:35:10* Test Item Value Reference Range Interpretation [...] is LDL/HDL Ratio=LDL Calc/HDL Chol Thyroid Stimulating [id number] 08:35:10* Test Item Value Reference Range Interpretation Comme nts TSH (test code = TSH) 3.331 mcIU/mL 0.550-4.780 Hemoglobin [id number] 08:33:08* Test Item Value Reference Range Interpretation Comme nts Hemoglobin A1c (test code = Hemoglobin A1c) 6.0 % 4.0-5.8 H Diabetic >=6.5 %Prediabetes 5.7-6.4 %Normal <5.7 % Thyroid Para Parotid GlandThyroid Para Parotid Gland
--- NOTE | 2024-02-22 20:33 | ER ---
Nurse's Notes [facility] Name: Cat Nederland Age: 63 yrs Sex: Female : 1960 Arrival Date: 02/22/2024 Time: 19:34 Bed DX4 Private MD: Diagnosis: Sciatica, right side Presentation: 02/21 20:16 Chief complaint: Patient states: PAIN TO LOWER RT BUTTOCK AND TINGLING TO RT FOOT. PT dd2 REPORTS HX OF SCIATIC. Coronavirus screen: At this time, the client does not indicate any symptoms associated with coronavirus-19. Ebola Screen: No symptoms or risks identified at this time. Initial Sepsis Screen: Does the patient meet any 2 criteria? No. Patient's initial sepsis screen is negative. Does the patient have a suspected source of infection? No. Patient's initial sepsis screen is negative. Risk Assessment: Do you want to hurt yourself or someone else? Patient reports no desire to harm self or others. Onset of symptoms is unknown. 20:16 Method Of Arrival: Ambulatory dd2 20:16 Acuity: GILMAR 4 dd2 Triage Assessment: 20:19 General: Appears uncomfortable, Behavior is cooperative, appropriate for age, agitated. dd2 Pain: Complains of pain in right gluteus bry Pain radiates to right leg Pain currently is 10 out of 10 on a pain scale. 20:43 EENT: No deficits noted. No signs and/or symptoms were reported regarding the EENT dd2 system. Neuro: Diaz Agitation-Sedation Scale (RASS): 0 - Alert and Calm Level of Consciousness is awake, alert, obeys commands, Oriented to person, place, time, situation, Appropriate for age. Cardiovascular: No deficits noted. Reports. Respiratory: No deficits noted. Airway is patent Respiratory effort is even, unlabored, Respiratory pattern is regular, symmetrical. GI: No deficits noted. No signs and/or symptoms were reported involving the gastrointestinal system. : No deficits noted. No signs and/or symptoms were reported regarding the genitourinary system. Derm: No deficits noted. No signs and/or symptoms reported regarding the dermatologic system. Musculoskeletal: Circulation, motion, and sensation intact. Range of motion: intact in all extremities, Tenderness present in right gluteus bry Reports pain in right leg and right gluteus bry. Historical: - Allergies: 20:19 No Known Allergies; dd2 - PMHx: 20:19 Anxiety; Depression; Diabetes - NIDDM; Hypertension; SCIATIC (Hypertension); dd2 - PSHx: 20:19 None; dd2 - Immunization history:: Adult Immunizations up to date. - Infectious Disease History:: Denies. - Social history:: Smoking status: Patient denies any tobacco usage or history of. Screenin:21 [facility] ED Fall Risk Assessment (Adult) History of falling in the last 3 months, dd2 including since admission No falls in past 3 months (0 pts) Confusion or Disorientation No (0 pts) Intoxicated or Sedated No (0 pts) Impaired Gait No (0 pts) Mobility Assist Device Used No (0 pt) Altered Elimination No (0 pt) Score/Fall Risk Level 0 - 2 = Low Risk Oriented to surroundings, Maintained a safe environment, Educated pt \T\ family on fall prevention, incl call for assistance when getting out of bed, Assessed \T\ reinforced patient's understanding of fall precautions, Hourly rounding (assess needs \T\ fall precautionary measures) done. Abuse screen: Denies threats or abuse. Nutritional screening: No deficits noted. Tuberculosis screening: No symptoms or risk factors identified. Assessment: 20:44 Reassessment: SEE TRIAGE ASSESSMENT FOR FULL ASSESSMENT. dd2 Vital Signs: 20:16 BP 156 / 75; Pulse 77; Resp 16; Temp 98.1; Pulse Ox 100% on R/A; Weight 108.86 kg; dd2 Height 5 ft. 4 in. ; Pain 10/10; 20:16 Body Mass Index 41.20 (108.86 kg, 162.56 cm) dd2 20:16 Pain Scale: Adult dd2 Lidia Coma Score: 20:21 Eye Response: spontaneous(4). Motor Response: obeys commands(6). Verbal Response: dd2 oriented(5). Total: 15. ED Course: 19:37 Patient arrived in ED. ra3 19:40 Saad Milner FNP-C is PHCP. dr5 19:40 Abhinav Bauman MD is Attending Physician. dr5 20:19 Triage completed. dd2 20:19 Arm band placed on right wrist. Patient placed in an exam room, on a stretcher, on dd2 pulse oximetry. 20:21 Patient has correct armband on for positive identification. Provided Education on: dd2 MEDICATION EDUCATION. Client placed on continuous cardiac and pulse oximetry monitoring. NIBP monitoring applied. 20:21 No provider procedures requiring assistance completed. Patient did not have IV access dd2 during this emergency room visit. Patient maintains SpO2 saturation greater than 95% on room air. 20:42 SANGEETA MARTINEZ, RN is Primary Nurse. dd2 Administered Medications: 20:39 Drug: Dexamethasone IM 10 mg IM once Route: IM; Site: left deltoid; lg3 Medication: 20:21 VIS not applicable for this client. dd2 Outcome: 20:21 Discharged to home ambulatory, dd2 20:21 Condition: stable 20:21 Discharge instructions given to patient, Instructed on discharge instructions, follow up and referral plans. medication usage, Demonstrated understanding of instructions, follow-up care, medications, Prescriptions given X 1, 20:33 Discharge ordered by . dr5 20:46 Patient left the ED. dd2 Signatures: April Freedman RN RN lg3 Renata Zamora ra3 SANGEETA MARTINEZ RN RN dd2 Saad Milner, ACCOUNT MANAGER EDUCATION-C ACCOUNT MANAGER EDUCATION-Cdr5
--- NOTE | 2024-02-22 20:33 | EDPHYS ---
Physician Documentation [facility] Name: Cat Menard Age: 63 yrs Sex: Female : 1960 Arrival Date: 02/22/2024 Time: 19:34 Bed DX4 Private MD: ED Physician Abhinav Bauman HPI: 02/21 20:28 This 63 yrs old Female presents to ER via Ambulatory with complaints of Low dr5 Back Pain. 20:28 The patient presents with pain that is chronic, with no known mechanism of injury. The dr5 symptoms are located in the low back. Location: right low back. Onset: The symptoms/episode began/occurred 3 month(s) ago. Patient is a 63-year-old female with history of sciatic nerve pain, hypertension, diabetes, anxiety, depression coming in with 3 months of right lower back pain radiating down to right leg consistent with sciatic nerve pain. Patient reports she is currently taking gabapentin with mild relief. Patient denies injury, trauma, fall, perirectal numbness, bilateral lower numbness or tingling, fever, or bowel or bladder incontinence.. Historical: - Allergies: 20:19 No Known Allergies; dd2 - PMHx: 20:19 Anxiety; Depression; Diabetes - NIDDM; Hypertension; SCIATIC (Hypertension); dd2 - PSHx: 20:19 None; dd2 - Immunization history:: Adult Immunizations up to date. - Infectious Disease History:: Denies. - Social history:: Smoking status: Patient denies any tobacco usage or history of. ROS: 20:28 Constitutional: as per hpi dr5 Exam: 20:28 Constitutional: This is a well developed, well nourished patient who is awake, alert, dr5 and in no acute distress. Head/Face: Normocephalic, atraumatic. Eyes: Pupils equal round and reactive to light, extra-ocular motions intact. Lids and lashes normal. Conjunctiva and sclera are non-icteric and not injected. Cornea within normal limits. Periorbital areas with no swelling, redness, or edema. ENT: Nares patent. No nasal discharge, no septal abnormalities noted. Tympanic membranes are normal and external auditory canals are clear. Oropharynx with no redness, swelling, or masses, exudates, or evidence of obstruction, uvula midline. Mucous membranes moist. Chest/axilla: Normal chest wall appearance and motion. Nontender with no deformity. No lesions are appreciated. Cardiovascular: Regular rate and rhythm with a normal S1 and S2. Normal PMI, no JVD. No pulse deficits. Respiratory: Lungs have equal breath sounds bilaterally, clear to auscultation. No rales, rhonchi or wheezes noted. No increased work of breathing, no retractions or nasal flaring. Back: No spinal tenderness. No costovertebral tenderness. Full range of motion. 20:28 Neuro: Awake and alert, GCS 15, oriented to person, place, time, and situation. Cranial nerves II-XII grossly intact. Motor strength 5/5 in all extremities. Sensory grossly intact. Cerebellar exam normal. Normal gait. 20:28 Musculoskeletal/extremity: ROM: no acute changes, Circulation is intact in all extremities. Sensation intact. Vital Signs: 20:16 BP 156 / 75; Pulse 77; Resp 16; Temp 98.1; Pulse Ox 100% on R/A; Weight 108.86 kg; dd2 Height 5 ft. 4 in. ; Pain 10/10; 20:16 Body Mass Index 41.20 (108.86 kg, 162.56 cm) dd2 20:16 Pain Scale: Adult dd2 Lidia Coma Score: 20:21 Eye Response: spontaneous(4). Motor Response: obeys commands(6). Verbal Response: dd2 oriented(5). Total: 15. MDM: 19:40 Medical Screening Exam initiated dr5 20:28 Differential diagnosis: arthritis, strain, fracture, sciatica. Data reviewed: vital dr5 signs, nurses notes. I considered the following discharge prescriptions or medication management in the emergency department Medications were administered in the Emergency Department. See MAR. Care significantly affected by the following chronic conditions: HTN, Diabetes, Sciatic Nerve Pain. Care significantly affected by the following Social Determinants of Health: Poor access to healthcare and/or lack of insurance, Poor access to transportation, Problems related to employment. Counseling: I had a detailed discussion with the patient and/or guardian regarding the historical points, exam findings, and any diagnostic results supporting the discharge/admit diagnosis, the presence of at least one elevated blood pressure reading (>120/80) during this emergency department visit, the need for outpatient follow up, for definitive care, a family practitioner, to return to the emergency department if symptoms worsen or persist or if there are any questions or concerns that arise at home. Medication response: Dexamethasone. Response to treatment: the patient's symptoms have mildly improved after treatment. ED course: Recommended patient continue take gabapentin. 1 dose of dexamethasone given in the ER. Will not give steroid pack due to diabetic. Will give patient a short course of muscle oxygen to take as needed pain. Recommended patient follow-up with primary care doctor and is managing her sciatic nerve pain. No back pain red flags noted. Patient ambulatory on discharge.. Administered Medications: 20:39 Drug: Dexamethasone IM 10 mg IM once Route: IM; Site: left deltoid; lg3 Disposition Summary: 02/22/24 20:33 Discharge Ordered Notes: Location: Home dr5 Condition: Stable dr5 Diagnosis - Sciatica, right side dr5 Followup: dr5 - With: Emergency Department - When: As needed - Reason: Worsening of condition Followup: dr5 - With: Private Physician - When: 1 - 2 days - Reason: Recheck today's complaints, Continuance of care, Re-evaluation by your physician Discharge Instructions: - Discharge Summary Sheet dr5 - Sciatica dr5 Forms: - Medication Reconciliation Form dr5 - Patient Portal Instructions dr5 - Leadership Thank You Letter dr5 Prescriptions: - Cyclobenzaprine 10 mg Oral Tablet - take 1 tablet ORAL route every 8 hours As needed; 30 tablet; Refills: 0, dr5 Product Selection Permitted Addendum: 02/26/2024 15:32 Co-signature as Attending Physician, Abhinav Bauman MD I agree with the assessment and c menon plan of care. Signatures: Abhinav Bauman MD MD cha Able, Lacie RN RN lg3 SANGEETA MARTINEZ RN RN dd2 Saad Milner, IRRIGATION FLUME LAYER-C IRRIGATION FLUME LAYER-Cdr5
[2024-02-22] MEDS ORDERED: dexAMETHasone 10 MG/ML VIAL ONE (20:35)
[2024-02-22 21:07] VITALS: BP 156/75; TEMP 98.1; O2SAT 100
== END 2024-02-22 20:46 | disposition home or self-care (01) ==
LOC: ER 19:34
DX: M54.31 Sciatica, right side (principal)
CPT/HCPCS: 96372; 99284; J1100

== ENCOUNTER 2024-06-08 14:37 | Inpatient (IN) | payer OTHER ==
--- OUTSIDE RECORDS SUMMARY | 2024-06-08 14:40 | XMS REPORT | Continuity of Care Document ---
Author Name Unknown Address [address] [facility] [address] [place] [address] [facility] Address [address] [facility] [address] [place] [address] Care Team Providers Care Door Technician Name Role Phone Perlita Bernal Attending Clinician Cristhian Vicente Attending Clinician Cristhian Vicente Attending Clinician Unavailable CESAR BRUNO Attending Clinician Cristhian Mahan Admitting Clinician Unavailable Payers Payer Name Policy Type Policy Number Effective Date Expirati on Date Source [facility] AAR MCR Advantage (HMO-POS) [id number] 2023 00:00:00 [facility] MCR Dual Complete (HMO-POS D-SNP) [id number] [facility] Problems Condition Name Condition Details Condition Category Status Onset Date Resolution Date Last Treatment Date Treating Clinician Comments Source [id number] BMI 40.0-44.9, adult Problem [facility] [id number] Parathyroi d adenoma Problem [facility] [id number] watermaster current use of oral hypoglycem ic drug Problem Common [facility] [id number] Long-term (current) use of injectable non-insuli n antidiabet ic drugs Problem Common [facility] [id number] Statin intoleranc e Problem Common [facility] [id number] Non-compli ant behavior Problem Common [facility] [id number] Type 2 diabetes mellitus with hyperglyce donell, without long-term current use of insulin Problem Common [facility] [id number] Spine pain Problem Comm on [facility] Hypertensi on Hypertensi on Problem Common [facility] Localized swelling, mass and lump, neck Mass of thyroid region Problem Common [facility] Hyperlipid emia Hyperlipid emia Problem [facility] Generalize d abdominal pain Generalize d abdominal pain Problem [facility] [id number] Recurrent major depressive disorder, in partial remission Problem [facility] Vitreous degenerati on PVD (posterior vitreous detachment ) Problem [facility] [id number] Fibromyalg ia Problem [facility] 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 Problem Common [facility] Osteoarthr itis of multiple joints Osteoarthr itis, multiple sites Problem [facility] [id number] Irritable bowel syndrome with constipati on Problem [facility] 24867327 Irritable bowel syndrome with both constipati on and diarrhea Problem [facility] 47870054 Pain in left knee Problem [facility] [id number] Other chronic pain Problem [facility] Comprehens herman eye examinatio n (procedure ) Routine eye exam Problem Common [facility] [id number] Cervicalgi a Problem [facility] [id number] Current severe episode of major depressive disorder without psychotic features without prior episode Problem Common [facility] [id number] Sciatica of right side Problem Common [facility] [id number] Frequent falls Problem [facility] Allergies, Adverse Reactions, Alerts Allergy Name Allergy Type Status Severity Reaction(s) Onset Date Inactive Date Treating Clinician Comments Source No Known Allergie s Drug Active [facility] lurasido ne lurasido ne Active spaced out feeling [facility] vortioxe adán vortioxe adán Active vomit [facility] lisinopr il lisinopr il Active bad cough [facility] Social History Social Habit Start Date Stop Date Quantity Comments Source History of Tobacco Use [facility] Sex Assigned At [facility] Smoking Status Start Date Stop Date Source Never Smoker [facility] Current Smoker 2023-07-04 00:00:00 [facility] Medications Ordered Medication Name Filled Medication Name Start Date Stop Date Current Medication? Ordering Clinician Indication Dosage Frequency Signature (SIG) Comments Components Source predniSONE 10 MG predniSONE 10 MG 2-21 00:00: 00 No 1{table t} QD predniSONE 10 MG Cyclobenzap rine HCl 10 MG Cyclobenzap rine HCl 10 MG 2-13 00:00: 00 No 1{table t_at_be dtime_a s_neede d} QD Cyclobenza kaycee HCl 10 MG hydroCHLORO thiazide 25 MG hydroCHLORO thiazide [...] Trulicity 3 MG/0.5ML No Trulicity 3 MG/0.5ML Vraylar 3 MG Vraylar 3 MG No 1{capsu le} QD Vraylar 3 MG Immunizations Ordered Immunization Name Filled Immunization Name Date Status Comments Source Fluarix (IIV3) - SDS - 0.5mL Fluarix (IIV3) - SDS - 0.5mL Unknown Completed [facility] Vital Signs Vital Name Observation Time Observation Value Comments S ource Height/Length Measured 2019-11-19 02:48:45 Height/Length Measured 2019-11-19 02:44:35 height 2024-05-06 11:20:00 64 [in_i] Commo n [facility] weight 2024-05-06 11:20:00 260 [lb_av] Comm on [facility] bmi 2024-05-06 11:20:00 44.62 kg/m2 Comm on [facility] height 2024-04-03 16:20:00 64 [in_i] Commo n [facility] weight 2024-04-03 16:20:00 260 [lb_av] Comm on [facility] bmi 2024-04-03 16:20:00 44.62 kg/m2 Comm on [facility] height 2024-02-06 08:00:00 64 [in_i] Commo n [facility] weight 2024-02-06 08:00:00 260.4 [lb_av] Co mmon [facility] temperature 2024-02-06 08:00:00 98.2 [degF] Com mon [facility] bmi 2024-02-06 08:00:00 44.69 kg/m2 Comm on [facility] oximetry 2024-02-06 08:00:00 95 % Commo n [facility] respiratory rate 2024-02-06 08:00:00 16 /min [facility] blood pressure systolic 2024-02-06 08:00:00 130 mm[Hg] [facility] blood pressure diastolic 2024-02-06 08:00:00 78 mm[Hg] [facility] height 2024-01-15 16:00:00 64 [in_i] Commo n [facility] weight 2024-01-15 16:00:00 250 [lb_av] Comm on [facility] bmi 2024-01-15 16:00:00 42.91 kg/m2 Comm on [facility] height 2023-11-26 11:20:00 64 [in_i] Commo n [facility] weight 2023-11-26 11:20:00 254 [lb_av] Comm on [facility] bmi 2023-11-26 11:20:00 43.59 kg/m2 Comm on [facility] height 2023-11-07 10:40:00 64 [in_i] Commo n [facility] weight 2023-11-07 10:40:00 254.6 [lb_av] Co on [facility] temperature 2023-11-07 10:40:00 97.3 [degF] Com [facility] bmi 2023-11-07 10:40:00 43.7 kg/m2 Commo n [facility] oximetry 2023-11-07 10:40:00 96 % Commo n [facility] respiratory rate 2023-11-07 10:40:00 15 /min [facility] blood pressure systolic 2023-11-07 10:40:00 118 mm[Hg] [facility] blood pressure diastolic 2023-11-07 10:40:00 64 mm[Hg] [facility] height 2023-11-07 10:40:00 64 [in_i] Commo n [facility] weight 2023-11-07 10:40:00 254.6 [lb_av] Co mmon [facility] temperature 2023-11-07 10:40:00 97.3 [degF] Com [facility] bmi 2023-11-07 10:40:00 43.7 kg/m2 Commo n [facility] oximetry 2023-11-07 10:40:00 96 % Commo n [facility] respiratory rate 2023-11-07 10:40:00 15 /min [facility] blood pressure systolic 2023-11-07 10:40:00 118 mm[Hg] [facility] blood pressure diastolic 2023-11-07 10:40:00 64 mm[Hg[facility] height 2023-11-07 10:40:00 64 [in_i] Commo n [facility] weight 2023-11-07 10:40:00 254.6 [lb_av] Co mmon [facility] temperature 2023-11-07 10:40:00 97.3 [degF] Com mon [facility] bmi 2023-11-07 10:40:00 43.7 kg/m2 Commo n [facility] oximetry 2023-11-07 10:40:00 96 % Commo n [facility] respiratory rate 2023-11-07 10:40:00 15 /min [facility] blood pressure systolic 2023-11-07 10:40:00 118 mm[Hg] [facility] blood pressure diastolic 2023-11-07 10:40:00 64 mm[Hg] [facility] height 2023-09-20 11:40:00 64 [in_i] Commo n [facility] weight 2023-09-20 11:40:00 255 [lb_av] Comm on [facility] bmi 2023-09-20 11:40:00 43.77 kg/m2 Comm on [facility] height 2023-07-04 08:00:00 64 [in_i] Commo n [facility] weight 2023-07-04 08:00:00 255.4 [lb_av] Co mmon [facility] temperature 2023-07-04 08:00:00 97.1 [degF] Com mon [facility] bmi 2023-07-04 08:00:00 43.83 kg/m2 Comm on [facility] oximetry 2023-07-04 08:00:00 97 % Commo n [facility] respiratory rate 2023-07-04 08:00:00 16 /min Common [facility] height 2023-04-25 11:20:00 64 [in_i] Commo n [facility] weight 2023-04-25 11:20:00 246 [lb_av] Comm on [facility] bmi 2023-04-25 11:20:00 42.22 kg/m2 Comm on [facility] height 2023-01-25 15:00:00 64 [in_i] Commo n [facility] weight 2023-01-25 15:00:00 246.8 [lb_av] Co [facility] temperature 2023-01-25 15:00:00 97.9 [degF] Com mon [facility] bmi 2023-01-25 15:00:00 42.36 kg/m2 Comm on [facility] oximetry 2023-01-25 15:00:00 96 % Commo n [facility] respiratory rate 2023-01-25 15:00:00 16 /min [facility] blood pressure systolic 2023-01-25 15:00:00 139 mm[Hg] [facility] blood pressure diastolic 2023-01-25 15:00:00 66 mm[Hg] [facility] height 2022-12-20 11:40:00 64 [in_i] Commo n [facility] weight 2022-12-20 11:40:00 228 [lb_av] Comm on [facility] bmi 2022-12-20 11:40:00 39.13 kg/m2 Comm on [facility] height 2022-11-07 10:00:00 64 [in_i] Commo n [facility] weight 2022-11-07 10:00:00 246.8 [lb_av] Co mmon [facility] temperature 2022-11-07 10:00:00 97.3 [degF] Com [facility] bmi 2022-11-07 10:00:00 42.36 kg/m2 Comm on [facility] oximetry 2022-11-07 10:00:00 95 % Commo n [facility] respiratory rate 2022-11-07 10:00:00 16 /min Common [facility] height 2022-10-16 14:00:00 64 [in_i] Commo n [facility] weight 2022-10-16 14:00:00 247.0 [lb_av] Co mmon [facility] temperature 2022-10-16 14:00:00 97.4 [degF] Com [facility] bmi 2022-10-16 14:00:00 42.39 kg/m2 Comm on [facility] oximetry 2022-10-16 14:00:00 96 % Commo n [facility] respiratory rate 2022-10-16 14:00:00 16 /min [facility] blood pressure systolic 2022-10-16 14:00:00 139 mm[Hg] [facility] blood pressure diastolic 2022-10-16 14:00:00 84 mm[Hg] [facility] height 2022-09-20 09:40:00 64 [in_i] Commo n [facility] weight 2022-09-20 09:40:00 248.0 [lb_av] Co mmon [facility] temperature 2022-09-20 09:40:00 97.7 [degF] Com [facility] bmi 2022-09-20 09:40:00 42.56 kg/m2 Comm on [facility] oximetry 2022-09-20 09:40:00 98 % Commo n [facility] respiratory rate 2022-09-20 09:40:00 16 /min [facility] blood pressure systolic 2022-09-20 09:40:00 135 mm[Hg] [facility] blood pressure diastolic 2022-09-20 09:40:00 72 mm[Hg] [facility] height 2022-09-20 09:20:00 64 [in_i] Commo n [facility] weight 2022-09-20 09:20:00 248.0 [lb_av] Co mmon [facility] temperature 2022-09-20 09:20:00 97.7 [degF] Com mon [facility] bmi 2022-09-20 09:20:00 42.56 kg/m2 Comm on [facility] oximetry 2022-09-20 09:20:00 98 % Commo n [facility] respiratory rate 2022-09-20 09:20:00 16 /min [facility] blood pressure systolic 2022-09-20 09:20:00 135 mm[Hg] [facility] blood pressure diastolic 2022-09-20 09:20:00 72 mm[Hg] [facility] height 2022-06-20 14:40:00 64 [in_i] Commo n [facility] weight 2022-06-20 14:40:00 249.0 [lb_av] Co mmon [facility] temperature 2022-06-20 14:40:00 97.3 [degF] Com mon [facility] bmi 2022-06-20 14:40:00 42.74 kg/m2 Comm on [facility] oximetry 2022-06-20 14:40:00 97 % Commo n [facility] respiratory rate 2022-06-20 14:40:00 16 /min [facility] blood pressure systolic 2022-06-20 14:40:00 138 mm[Hg] [facility] blood pressure diastolic 2022-06-20 14:40:00 78 mm[Hg] [facility] height 2022-05-03 08:00:00 64 [in_i] Commo n [facility] weight 2022-05-03 08:00:00 263 [lb_av] Comm on [facility] bmi 2022-05-03 08:00:00 45.14 kg/m2 Comm on [facility] height 2022-02-23 16:40:00 64 [in_i] Commo n [facility] weight 2022-02-23 16:40:00 263.6 [lb_av] Co [facility] temperature 2022-02-23 16:40:00 97.1 [degF] Com mon [facility] bmi 2022-02-23 16:40:00 45.24 kg/m2 Comm on [facility] oximetry 2022-02-23 16:40:00 97 % Commo n [facility] respiratory rate 2022-02-23 16:40:00 17 /min Common [facility] blood pressure systolic 2022-02-23 16:40:00 130 mm[Hg] [facility] blood pressure diastolic 2022-02-23 16:40:00 74 mm[Hg] [facility] height 2021-12-07 14:00:00 64 [in_i] Commo n [facility] weight 2021-12-07 14:00:00 245.0 [lb_av] Co mmon [facility] bmi 2021-12-07 14:00:00 42.05 kg/m2 Comm on [facility] height 2021-12-02 13:00:00 64 [in_i] Commo n [facility] weight 2021-12-02 13:00:00 245 [lb_av] Comm on [facility] bmi 2021-12-02 13:00:00 42.05 kg/m2 Comm on [facility] height 2021-07-21 08:00:00 64 [in_i] Commo n [facility] weight 2021-07-21 08:00:00 245 [lb_av] Comm on [facility] bmi 2021-07-21 08:00:00 42.05 kg/m2 Comm on [facility] height 2021-04-22 16:00:00 64 [in_i] Commo n [facility] weight 2021-04-22 16:00:00 250 [lb_av] Comm on [facility] bmi 2021-04-22 16:00:00 42.91 kg/m2 Comm on [facility] height 2021-01-26 09:20:00 64 [in_i] Commo n [facility] weight 2021-01-26 09:20:00 256 [lb_av] Comm on [facility] temperature 2021-01-26 09:20:00 97.7 [degF] Com [facility] bmi 2021-01-26 09:20:00 43.94 kg/m2 Comm on [facility] oximetry 2021-01-26 09:20:00 99 % Commo n [facility] respiratory rate 2021-01-26 09:20:00 16 /min [facility] blood pressure systolic 2021-01-26 09:20:00 132 mm[Hg] [facility] blood pressure diastolic 2021-01-26 09:20:00 66 mm[Hg] [facility] height 2021-01-26 10:40:00 64 [in_i] Commo n [facility] weight 2021-01-26 10:40:00 250.8 [lb_av] Co mmon [facility] temperature 2021-01-26 10:40:00 97.7 [degF] Com [facility] bmi 2021-01-26 10:40:00 43.05 kg/m2 Comm on [facility] oximetry 2021-01-26 10:40:00 99 % Commo n [facility] respiratory rate 2021-01-26 10:40:00 16 /min [facility] blood pressure systolic 2021-01-26 10:40:00 132 mm[Hg] [facility] blood pressure diastolic 2021-01-26 10:40:00 66 mm[Hg] [facility] Height/Length Measured 2021-03-08 12:43:23 162.5 cm Weight Dosing 2021-03-08 12:43:23 102.00 kg Height/Length Measured 2021-03-08 12:39:46 162.5 cm Weight Dosing 2021-03-08 12:39:46 102.00 kg Height/Length Measured 2021-03-08 12:38:42 162.5 cm Weight Dosing 2021-03-08 12:38:42 102.00 kg Height/Length Measured 2021-03-08 12:37:56 162.5 cm Weight Dosing 2021-03-08 12:37:56 102.00 kg Encounters Start Date/Time End Date/Time Encounter Type Admission Type Attending [facility] Care Facility Care Department Encounter ID Source 2024-04-10 15:38:00 Outpatient DoloresPerlita [facility] [id number] [facility] 2023-09-19 15:45:00 Outpatient Perlita Bernal [facility] [id number] [facility] 2023-07-02 07:38:00 [facility] [id number] [facility] 2023-06-06 07:24:00 Out[facility] [id number] [facility] 2023-05-29 08:54:00 Outpatient Perlita [facility]al [facility] [id number] [facility] 2023-04-23 09:34:00 Outpatient Perlita Bernal [facility] [id number] [facility] 2023-01-24 13:24:00 Outpatient NowataPerlita gutierrez [facility] [id number] [facility] 2022-09-20 09:21:00 Outpatient NowataPerlita gutierrez [facility] [id number] [facility] 2022-09-19 08:56:00 Outpatient NowataPerlita gutierrez [facility] [id number] [facility] 2022-06-19 13:38:01 Outpatient NowataPerlita gutierrez [facility] [id number] [facility] 2022-05-08 13:51:00 Outpatient NowataPerlita gutierrez [facility] [id number] [facility] 2022-05-02 10:25:00 Outpatient NowataPerlita gutierrez [facility] [id number] [facility] 2022-02-21 14:40:00 Outpatient NowataPerlita gutierrez [facility] [id number] [facility] 2021-11-22 13:32:00 Outpatient Perlita Bernal [facility] [id number] [facility] 2021-09-14 14:42:00 Outpatient NowataPerlita gutierrez [facility] [id number] [facility] 2021-07-25 09:15:00 Outpatient NowataPerlita gutierrez [facility] [id number] [facility] 2021-03-16 14:35:10 Outpatient Nowata, Perlita [facility] [id number] [facility] 2021-03-16 12:41:42 Outpatient NowataPerlita gutierrez [facility] [id number] [facility] 2021-03-16 12:22:33 Outpatient Nowata, Perlita [facility] [id number] [facility] 2021-03-16 12:21:55 Outpatient Perlita Bernal [facility] [id number] [facility] 2021-03-16 11:16:58 Outpatient Perlita Bernal [facility] [id number] [facility] 2021-03-16 11:16:49 Outpatient Perlita Bernal [facility] [id number] [facility] 2019-11-18 23:27:00 Inpatient Cristhian Lima Cristhian Nuñez [facility] [id number] [facility] 2019-01-05 08:09:00 Inpatient U [facility] [id number] [facility] 2024-05-21 00:00:00 2024-05-21 00:00:00 (TEL) [facility] [id number] [facility] 2024-05-06 00:00:00 2024-05-06 00:00:00 OFFICE VISIT ESTAB PT LEVEL 4 [facility] [id number] [facility] 2024-04-10 00:00:00 2024-04-10 00:00:00 (TEL) [facility] [id number] [facility] 2024-04-03 00:00:00 2024-04-03 00:00:00 OFFICE VISIT ESTAB PT LEVEL 3 [facility] [id number] [facility] 2024-03-31 00:00:00 2024-03-31 00:00:00 (TEL) [facility] [id number] [facility] 2024-02-06 00:00:00 2024-02-06 00:00:00 OFFICE VISIT ESTAB PT LEVEL 4 [facility] [id number] [facility] 2024-02-06 00:00:00 2024-02-06 00:00:00 (TEL) [facility] [id number] [facility] 2024-01-23 00:00:00 2024-01-23 00:00:00 (TEL) [facility] [id number] [facility] 2024-01-15 00:00:00 2024-01-15 00:00:00 OFFICE VISIT ESTAB PT LEVEL 4 [facility] [id number] [facility] 2023-12-28 00:00:00 2023-12-28 00:00:00 (TEL) [facility] [id number] [facility] 2023-11-26 00:00:00 2023-11-26 00:00:00 OFFICE VISIT ESTAB PT LEVEL 4 [facility] [id number] [facility] 2023-11-23 00:00:00 2023-11-23 00:00:00 (TEL) [facility] [id number] [facility] 2023-11-08 00:00:00 2023-11-08 00:00:00 (TEL) [facility] [id number] [facility] 2023-11-07 00:00:00 2023-11-07 00:00:00 SUB ANNUAL [facility] WELLNESS VISIT [facility] [id number] [facility] 2023-11-07 00:00:00 2023-11-07 00:00:00 OFFICE VISIT ESTAB PT LEVEL 4 [facility] [id number] [facility] 2023-09-20 00:00:00 2023-09-20 00:00:00 OFFICE VISIT ESTAB PT LEVEL 4 [facility] [id number] [facility] 2023-07-04 00:00:00 2023-07-04 00:00:00 OFFICE VISIT ESTAB PT LEVEL 3 [facility] [id number] [facility] 2023-06-07 00:00:00 2023-06-07 00:00:00 (TEL) [facility] [id number] [facility] 2023-04-25 00:00:00 2023-04-25 00:00:00 OFFICE VISIT ESTAB PT LEVEL 4 [facility] [id number] [facility] 2023-03-29 00:00:00 2023-03-29 00:00:00 (TEL) [facility] [id number] [facility] 2023-02-12 00:00:00 2023-02-12 00:00:00 (WEB) [facility] [id number] [facility] 2023-02-09 00:00:00 2023-02-09 00:00:00 (TEL) [facility] [id number] [facility] 2023-02-04 00:00:00 2023-02-04 00:00:00 (TEL) [facility] [id number] [facility] 2023-01-25 00:00:00 2023-01-25 00:00:00 OFFICE VISIT ESTAB PT LEVEL 3 [facility] [id number] [facility] 2022-12-20 00:00:00 2022-12-20 00:00:00 OFFICE VISIT ESTAB PT LEVEL 4 [facility] [id number] [facility] 2022-11-07 00:00:00 2022-11-07 00:00:00 OFFICE VISIT ESTAB PT LEVEL 4 [facility] [id number] [facility] 2022-10-16 00:00:00 2022-10-16 00:00:00 OFFICE VISIT ESTAB PT LEVEL 3 [facility] [id number] [facility] 2022-09-20 00:00:00 2022-09-20 00:00:00 OFFICE VISIT ESTAB PT LEVEL 3 [facility] [id number] [facility] 2022-09-20 00:00:00 2022-09-20 00:00:00 SUB ANNUAL [facility] WELLNESS VISIT [facility] [id number] [facility] 2022-09-18 00:00:00 2022-09-18 00:00:00 (TEL) STLMLC STLMLC [id number] [facility] 2022-09-02 00:00:00 2022-09-02 00:00:00 (WEB) STLMLC STLMLC [id number] [facility] 2022-06-20 00:00:00 2022-06-20 00:00:00 OFFICE VISIT ESTAB PT LEVEL 3 STLMLC STLMLC [id number] [facility] 2022-06-01 00:00:00 2022-06-01 00:00:00 (TEL) STLMLC STLMLC [id number] [facility] 2022-05-03 00:00:00 2022-05-03 00:00:00 OFFICE VISIT ESTAB PT LEVEL 4 STLMLC STLMLC [id number] [facility] 2022-02-23 00:00:00 2022-02-23 00:00:00 OFFICE VISIT ESTAB PT LEVEL 4 STLMLC STLMLC [id number] [facility] 2021-12-07 00:00:00 2021-12-07 00:00:00 SUB ANNUAL [facility] WELLNESS VISIT STLMLC STLMLC [id number] [facility] 2021-12-02 00:00:00 2021-12-02 00:00:00 OFFICE VISIT EST PT LEVEL 3 STLMLC STLMLC [id number] [facility] 2021-11-22 00:00:00 2021-11-22 00:00:00 (TEL) STLMLC STLMLC [id number] [facility] 2021-07-21 00:00:00 2021-07-21 00:00:00 OFFICE VISIT EST PT LEVEL 3 STLMLC STLMLC [id number] [facility] 2021-04-22 00:00:00 2021-04-22 00:00:00 OFFICE VISIT EST PT LEVEL 3 STLMLC STLMLC [id number] [facility] 2021-01-26 00:00:00 2021-01-26 00:00:00 OFFICE VISIT ESTAB PT LEVEL 4 STLMLC STLMLC [id number] [facility] 2021-01-26 00:00:00 2021-01-26 00:00:00 SUB ANNUAL [facility] WELLNESS VISIT STLMLC STLMLC [id number] [facility] 2020-05-06 00:00:00 2020-05-06 00:00:00 Outpatient STLMLC STLMLC [id number] [facility] 2020-04-28 00:00:00 2020-04-28 00:00:00 Outpatient STLMLC STLMLC [id number] [facility] 2019-11-18 23:27:00 2019-11-24 15:27:00 Inpatient Cristhian Lima Cristhian Nuñez [facility] PSY [id number] [facility] 2019-11-18 02:28:00 2019-11-18 02:28:00 Emergency E CESAR BRUNO [facility] [address] [facility] 2019-05-23 08:40:00 2019-05-23 08:40:00 [place] [id number] [facility] 2019-02-14 09:40:00 2019-02-14 09:40:00 [place] [id number] [facility] 2019-02-10 09:40:00 2019-02-10 09:40:[address] [facility] [address] [facility] [place] [facility] [id number] [facility] 2018-11-04 08:04:00 2018-11-04 08:04:[address] [facility] [address] [facility] [place] [facility] [id number] [facility] 2018-10-28 09:26:00 2018-10-28 09:26:00 [facility] [address] [facility] [id number] [facility] 2018-10-22 11:40:00 2018-10-22 11:40:00 Outpatient [facility] [id number] [facility] 2018-10-11 16:27:00 2018-10-11 16:27:00 Outpatient [facility] [id number] [facility] 2018-10-11 14:50:00 2018-10-11 14:50:00 Outpatient [facility] [id number] [facility] 2018-09-11 11:42:00 2018-09-11 11:42:00 Outpatient [facility] [id number] [facility] 2018-02-28 13:30:00 2018-02-28 13:30:00 Outpatient [facility] [id number] [facility] Results Test Description Test Time Test Comments Results Result Co mments Source HEMOGLOBIN [id number] 00:00:00* Test Item Value Reference Range Interpretation Comme nts A1C (test code = 4548-4) 7.0 HEMOGLOBIN [id number] 00:00:00* Test Item Value Reference Range Interpretation Comme nts HEMOGLOBIN A1c (test code = 4548-4) 6.3 % See_Comment H [Automated messa ge] The system which generated this result transmitted reference range: 4.2-5.6 %. The reference range was not used to interpret this result as normal/abnormal. CBC W/AUTO [id number] 00:00:00* Test Item Value Reference Range Interpretation Comme nts NUCLEATED RBCS (test code = 22681-7) 0.0 /100 WBC'S See_Comment [Automated messa ge] The system which generated this result transmitted reference range: 0.0 /100 WBC'S. The reference range was not used to interpret this result as normal/abnormal. ABSOLUTE EOSINOPHILS (test code = 20306-9) 0.36 K/UL See_Comment [Automated messa ge] The system which generated this result transmitted reference range: 0.00-0.50 K/UL. The reference range was not used to interpret this result as normal/abnormal. ABSOLUTE LYMPHOCYTES (test code = 31154-8) 2.86 K/UL See_Comment [Automated messa ge] The system which generated this result transmitted reference range: 1.00-4.00 K/UL. The reference range was not used to interpret this result as normal/abnormal. ABSOLUTE MONOCYTES (test code = 35141-7) 0.64 K/UL See_Comment [Automated messa ge] The system which generated this result transmitted reference range: 0.20-1.00 K/UL. The reference range was not used to interpret this result as normal/abnormal. ABSOLUTE NEUTROPHILS (test code = 68648-7) 4.96 K/UL See_Comment [Automated messa ge] The system which generated this result transmitted reference range: 1.50-7.50 K/UL. The reference range was not used to interpret this result as normal/abnormal. BASOPHILS (test code = 89389-6) 1.3 % EOSINOPHILS (test code = 62554-0) 4.0 % HEMATOCRIT (test code = 87088-5) 46.8 % See_Comment H [Automated messa ge] [...] result as normal/abnormal. LYMPHOCYTES (test code = 66539-5) 31.8 % MCH (test code = 00118-5) 31.5 PG See_Comment [Automated messa ge] The system which generated this result transmitted reference range: 25.0-33.0 PG. The reference range was not used to interpret this result as normal/abnormal. MCHC (test code = 50874-0) 34.4 G/DL See_Comment [Automated messa ge] The system which generated this result transmitted reference range: 31.0-36.0 G/DL. The reference range was not used to interpret this result as normal/abnormal. MCV (test code = 57980-2) 91.6 fL See_Comment [Automated messa ge] The system which generated this result transmitted reference range: 80.0-99.0 fL. The reference range was not used to interpret this result as normal/abnormal. MONOCYTES (test code = 54971-8) 7.1 % NEUTROPHILS (test code = 37767-8) 55.2 % PLATELET COUNT (test code = 32622-8) 370 K/UL See_Comment [Automated messa [employer]] The system which generated this result transmitted reference range: 130-400 K/UL. The reference range was not used to interpret this result as normal/abnormal. RBC (test code = 05822-1) 5.11 M/UL See_Comment [Automated messa [employer]] The system which generated this result transmitted reference range: 3.80-5.40 M/UL. The reference range was not used to interpret this result as normal/abnormal. RDW (test code = 03933-1) 14.5 % See_Comment [Automated [employer]] The system which generated this result transmitted reference range: 11.5-15.0 %. The reference range was not used to interpret this result as normal/abnormal. WBC (test code = 29777-1) 9.0 K/UL See_Comment [Automated messa [employer]] The system which generated this result transmitted reference range: 3.5-11.0 K/UL. The reference range was not used to interpret this result as normal/abnormal. POC [id number] 05:54:54* Test Item Value Reference Range Interpretation Comme nts Glucose POC (test code = Glucose POC) 105 mg/dL 70-115 If you consi sophie your patient critically ill, the Rashaun-Accu Check Infrom II meter should not be used for Glucose determination. Draw a venous Glucose and send to the main Lab for analysis. RPR [id number] 12:46:36* Test Item Value Reference Range Interpretation [...] code = Expiration Dt) 11-18-2020 N Lipid [id number] 08:35:10* Test Item Value Reference Range Interpretation [...] is LDL/HDL Ratio=LDL Calc/HDL Chol Thyroid Stimulating [id number] 08:35:10* Test Item Value Reference Range Interpretation Comme nts TSH (test code = TSH) 3.331 mcIU/mL 0.550-4.780 Hemoglobin [id number] 08:33:08* Test Item Value Reference Range Interpretation Comme nts Hemoglobin A1c (test code = Hemoglobin A1c) 6.0 % 4.0-5.8 H Diabetic >=6.5 %Prediabetes 5.7-6.4 %Normal <5.7 % Thyroid Para Parotid GlandThyroid Para Parotid Gland
--- NOTE | 2024-06-08 15:19 | RAD REPORT ---
EXAM: CT brain without contrast HISTORY: Aphasia COMPARISON: None TECHNIQUE: Multiple contiguous axial images were obtained and a CT of the brain without contrast. Sagittal and coronal reformats were performed. Automated exposure control, adjustment of the mA and/or kV according to patient size, and/or itera tive reconstruction. Unless otherwise specified, incidental findings do not require dedicated imaging follow-u FINDINGS: Vague low-density aide. An intracranial bleed is not seen Prominence of the ventricles. No extra-axial fluid collection noted Mild low-density within the brain probably ischemic changes secondary to small vessel disease. No fluid within the visualized sinuses or mastoids noted. IMPRESSION: Vague low-density aide probably artifact rather than pathology. Prominence of the ventricles probably the sequela of atrophy. Normal pressure hydrocephalus can have this appearance but is considered less likely and should be correlated clinically. If the patient's symptoms persist MRI of the brain would be recommended. Katia Eriberto from the emergency room was notified at 3:13 PM June 08, 2024
--- NOTE | 2024-06-08 15:26 | RAD REPORT ---
EXAMINATION: CTA HEAD CLINICAL INDICATION: Aphasia TECHNIQUE: Axial CT images were obtained through the head after 100 cc Isovue-370 intravenous contras t utilizing angiographic protocol with 3D post-processing (maximum intensity projection images, volume rendered images and/or shaded surface rendered images). One or more of the following dose red uction techniques were used: Automated exposure control, adjustment of the mA and/or kV according to patient size, and/or iterative reconstruction. Unless otherwise specified, incidental findings do not require dedicated imaging follow-up. COMPARISON: None FINDINGS: Distal internal carotid, basilar, anterior cerebral, middle cerebral and posterior cerebral arteries do not demonstrate a significant stenosis An aneurysm not noted. No large vessel occlusion IMPRESSION: No acute vascular abnormality displayed
--- NOTE | 2024-06-08 15:26 | RAD REPORT ---
EXAMINATION: Neck Angio CLINICAL INDICATION: Aphasia TECHNIQUE: Axial CT images were obtained from the aortic arch to the skull base after intravenous adm inistration of 100 cc Isovue-370 utilizing angiographic protocol. Multiplanar reformats, as well as 3D post-processing (maximum intensity projection images, volume rendered images and/or shaded surface rendered images) were generated and reviewed. One or more of the following dose reduction techniques were used: Automated exposure control, adjustment of the mA and/or kV according to patient size, and/or iterative reconstruction. Unless otherwise specified, incidental findings do not require dedicated imaging follow-up. COMPARISON: No prior exam. FINDINGS: The visualized aortic arch and great vessels do not demonstrate a significant abnormality Mild plaque is present within common carotid, internal carotid and external carotid arteries. Vertebral arteries unremarkable No significant stenosis noted. A dissection is not seen. Methods for NASCET criteria: Mild stenosis, 0% to 49%; Moderate stenosis 50% to 69%; Severe stenosis, 70% to 99% IMPRESSION: No acute vascular abnormality displayed
[2024-06-08 15:42] LABS: Absolute Basophils 0.1 K/uL (0-0.5); Absolute Eosinophils 0.2 K/uL (0-0.5); Absolute Lymphocytes (CBC) 2.8 K/uL (0.7-4.9); Absolute Monocytes 0.8 K/uL (0.1-1.3); Absolute Neutrophil 4.3 K/uL (1.8-8.0); Eosinophils % 2.2 % (0-4.4); Hematocrit 40.7 % (36.0-45.0); Lymphocytes % 34.1 % (15.3-44.8); MCH 32.1 pg (27.0-35.0); MCHC 34.4 g/dL (32.0-36.0); MCV 93.3 fL (80-100); MPV 7.9 fL (7.6-11.3); Monocytes % 10.3 % (3.3-12.3); Neutrophils % 52.4 % (41.7-73.7); Platelets 279 thou/uL (152-406); RBC Red Blood Cell Count 4.36 M/uL (3.86-4.86); Red Cell Distribution Width 14.1 % (12.1-15.2)
[2024-06-08] MEDS ORDERED: TENECTEPLASE 50 MG/10 ML VIAL IV ONE (15:53)
[2024-06-08 15:54] LABS: PT Prothrombin Time 10.8 SECONDS (10-13.0); Protime INR 0.94
[2024-06-08 16:04] LABS: ALT/SGPT 20 U/L (13-56); AST/SGOT 12 U/L (15-37); Albumin 3.2 g/dL (3.4-5.0); Alkaline Phosphatase 79 U/L (45-117); BUN Blood Urea Nitrogen 10 mg/dL (7-18); Bicarbonate 30 mEq/L (21-32); Bilirubin Total 0.4 mg/dL (0.2-1.0); Globulin 3.3 g/dL (2.3-3.5); Glomerular Filtration Rate 76 ml/min (=/>90); Glucose Level 133 mg/dL (74-106); Magnesium 2.2 mg/dL (1.6-2.4); Protein, Total 6.5 g/dL (6.4-8.2); Sodium Level 135 mEq/L (136-145)
[2024-06-08 16:06] LABS: Bilirubin Direct < 0.2 mg/dL (0-0.2); Bilirubin Indirect, Calculated 0.2 mg/dL (0.2-0.8); Troponin High Sensitivity < 3.0 pg/mL (<58.9)
--- NOTE | 2024-06-08 16:11 | RAD REPORT ---
Procedure: Chest Single View HISTORY: Cva COMPARISON: none FINDINGS: The lungs appear clear of acute infiltrate. No significant pleural effusion noted. The heart is normal size. IMPRESSION: No acute abnormality is displayed.
--- NOTE | 2024-06-08 16:18 | EDPHYS ---
Physician Documentation [facility] Name: Cat Menard Age: 63 yrs Sex: Female : 1960 Arrival Date: 06/08/2024 Time: 14:37 Bed 27 Private MD: ED Physician Abhinav Bauman HPI: 06/08 17:19 This 63 yrs old Female presents to ER via EMS with complaints of Headache, Doesn't Feel sb4 Right. 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 denies any focal weakness, difficulty swallowing, visual disturbances. denies any history of cardiac disease or prior CVAs. Historical: - Allergies: 14:46 No Known Allergies; kc6 - PMHx: 14:46 Hypertension; Diabetes - NIDDM; Depression; Anxiety; sciatica (Anxiety); kc6 - PSHx: 14:46 section; Arthroplasty of knee; kc6 - Immunization history:: Adult Immunizations up to date. - Infectious Disease History:: Denies. - Social history:: Smoking status: Patient denies any tobacco usage or history of. ROS: 17:23 Constitutional: Negative for fever, chills, and weight loss, sb4 17:23 Neuro: Positive for dizziness, headache, per HPI, 17:23 All other systems are negative, Exam: 17:23 Constitutional: The patient appears in no acute distress, alert, awake, sb4 17:23 Neuro: Orientation: to person, place, time \T\ situation. Mentation: responsive to voice lucid, able to follow commands, slow to respond, Memory: is normal, Cranial nerves: extraocular movements are intact, Facial palsy and sensory deficits are absent. no gross hearing deficit,. Nystagmus is absent. Speech is slowed, slurred, Tongue deviation is absent. Motor: moves all fours, Sensation: light touch is decreased in the right hand and right foot, seizure activity, is not displayed by the patient, 17:27 Head/Face: Normocephalic, atraumatic. Eyes: Extra-ocular motions intact. Periorbital sb4 areas with no swelling, redness, or edema. ENT: Mucous membranes moist. Cardiovascular: Regular rate and rhythm with a normal S1 and S2. Respiratory: No increased work of breathing, no retractions or nasal flaring. Abdomen/GI: Soft, non-tender, no distension. Vital Signs: 14:44 BP 137 / 66; Pulse 83; Resp 17 S; Temp 98.8(O); Pulse Ox 98% on R/A; Weight 102.06 kg kc6 (R); Height 5 ft. 4 in. (R); Pain 8/10; 15:49 BP 120 / 54; Pulse 79; Resp 15 S; Pulse Ox 98% on R/A; kc6 17:28 BP 129 / 76; Pulse 71; Resp 17 S; Pulse Ox 97% on R/A; kc6 18:52 BP 127 / 62; Pulse 73; Resp 18 S; Pulse Ox 99% on R/A; kc6 14:44 Body Mass Index 38.62 (102.06 kg, 162.56 cm) kc6 14:44 Pain Scale: Adult kc6 NIH Stroke Scale Scores: 10:45 NIHSS Score: 4 kc6 17:23 NIHSS Score: 1 sb4 Lidia Coma Score: 17:26 Eye Response: spontaneous(4). Motor Response: obeys commands(6). Verbal Response: sb4 oriented(5). Total: 15. MDM: 14:46 Medical Screening Exam initiated sb4 17:26 Data reviewed: vital signs, nurses notes, EMS record, lab test result(s), EKG, sb4 radiologic studies, and as a result, I will admit patient. Consideration of Admission/Observation Patient was admitted/placed on observation. Counseling: I had a detailed discussion with the patient and/or guardian regarding the historical points, exam findings, and any diagnostic results supporting the discharge/admit diagnosis, lab results, radiology results, the need for further work-up and treatment in the hospital. 06/08 14:56 Order name: Basic Metabolic Panel; Complete Time: 16:13 sb4 06/08 14:56 Order name: CBC with Diff; Complete Time: 15:52 sb4 06/08 14:56 Order name: Hepatic Function; Complete Time: 16:13 sb4 06/08 14:56 Order name: High Sensitivity Troponin; Complete Time: 16:13 sb4 06/08 14:56 Order name: Magnesium; Complete Time: 16:13 sb4 06/08 14:56 Order name: Protime (+inr); Complete Time: 15:54 sb4 06/08 14:56 Order name: Ptt, Activated; Complete Time: 15:54 sb4 06/08 14:56 Order name: UDS sb4 06/08 17:00 Order name: Basic Metabolic Panel EDMS 06/08 17:00 Order name: Basic Metabolic Panel EDMS 06/08 17:00 Order name: Basic Metabolic Panel EDMS 06/08 17:00 Order name: Basic Metabolic Panel EDMS 06/08 17:00 Order name: Basic Metabolic Panel EDMS 06/08 17:00 Order name: CBC with Automated Diff EDMS 06/08 17:00 Order name: CBC with Automated Diff EDMS 06/08 17:00 Order name: CBC with Automated Diff EDMS 06/08 17:00 Order name: CBC with Automated Diff EDMS 06/08 17:00 Order name: CBC with Automated Diff EDMS 06/08 17:00 Order name: Hemoglobin A1c EDMS 06/08 17:00 Order name: Hemoglobin A1c EDMS 06/08 17:00 Order name: T4,Total EDMS 06/08 17:00 Order name: T4,Total EDMS 06/08 17:00 Order name: Thyroid Stimulating Hormone EDMS 06/08 17:00 Order name: Thyroid Stimulating Hormone EDMS 06/08 21:37 Order name: Glucose, Ancillary Testing EDMS 06/08 14:56 Order name: CT Head Angio; Complete Time: 15:32 sb4 06/08 14:56 Order name: CT Neck Angio; Complete Time: 15:32 sb4 06/08 14:56 Order name: CT Stroke Brain w/o Contrast; Complete Time: 15:20 sb4 06/08 14:56 Order name: Stroke CXR 1 View; Complete Time: 16:13 sb4 06/08 17:00 Order name: Echo with Doppler EDMS 06/08 17:00 Order name: Stroke Protocol EDMS 06/08 17:01 Order name: Head Brain Wo Cont EDMS 06/08 14:56 Order name: EKG; Complete Time: 14:56 sb4 06/08 17:00 Order name: Physical Therapy Consult EDMS 06/08 17:00 Order name: Speech Therapy Consult EDMS 06/08 14:56 Order name: Accucheck; Complete Time: 15:22 sb4 06/08 14:56 Order name: Cardiac monitoring; Complete Time: 15:22 sb4 06/08 14:56 Order name: EKG - Nurse/Tech; Complete Time: 15: sb4 06/08 14:56 Order name: IV Saline Lock; Complete Time: 15: sb4 06/08 14:56 Order name: Labs collected and sent; Complete Time: 15: sb4 06/08 14:56 Order name: NPO; Complete Time: 15: sb4 06/08 14:56 Order name: O2 Per Protocol; Complete Time: 15: sb4 06/08 14:56 Order name: O2 Sat Monitoring; Complete Time: 15: sb4 06/08 14:56 Order name: Stroke Swallow Screen; Complete Time: 15: sb4 EC:27 Rate is 75 beats/min. Rhythm is regular, Normal Sinus Rhythm. Left axis deviation sb4 noted. NH interval is normal at 180 msec. QRS interval is normal at 80 msec. QT interval is normal at 404 msec. No Q waves. T waves are Normal. No ST changes noted. Clinical impression: No evidence of ischemia. Interpreted by me. Reviewed by me. Administered Medications: 16:05 Drug: TNK FOR STROKE - Tenecteplase IV (Administer 10 ml NS flush BEFORE and kc6 AFTER tenecteplase) 25 mg IV at per protocol once; 0.25mg/kg, MAX DOSE 25 mg, IVP over 5 seconds {Co-Signature: trent (Jaye Estes RN).} Route: IV; Rate: per protocol; Site: left antecubital; 17:05 Follow up: Response: No adverse reaction; IV Status: Completed infusion; IV Intake: 5ml kc6 17:50 Drug: Hydrocodone-Acetaminophen PO (7.5 mg-325 mg) 1 tabs PO once Route: PO; kc6 18:52 Follow up: Response: No adverse reaction; Pain is decreased; RASS: Alert and Calm (0) kc6 Disposition Summary: 06/08/24 16:17 Hospitalization Ordered Notes: Hospitalization Status: Inpatient Admission sb4 Provider: Murali Cross Condition: Fair sb4 Problem: new sb4 Symptoms: are unchanged sb4 Bed/Room Type: Standard sb4 Location: Intensive Care Unit(06/09/24 05:20) vc1 Room Assignment: 4-(06/09/24 05:20) vc1 Diagnosis - Weakness sb4 - Aphasia sb4 - Headache sb4 Forms: - Medication Reconciliation Form sb4 - SBAR form sb4 - Leadership Thank You Letter sb4 Critical care time excluding procedures: 17:26 Critical care time: Bedside Care: 20 minutes, Consultation: 15 minutes. Total time: 35 sb4 minutes NIH Stroke Scale - NIH Stroke Score Date: 06/08/2024 Time: 10:45 Total Score = 4 10. Dysarthria (speech clarity - read or repeat words) - 0(Normal) 11. Extinction and Inattention (visual/tactile/auditory/spatial/personal) - 0(No abnormality) 1a. Level of Consciousness (LOC) - 0(Alert) 1b. Level of Consciousness (LOC) (Month \T\ Age) - 0(Both) 1c. LOC Commands (Open \T\ Closes Eyes/Cosmetic Manager) - 0(Both) 2. Best Gaze (Lateral Gaze Paresis) - 0(Normal) 3. Visual Field Loss - 0(No visual loss) 4. Facial Palsy - 0(Normal) 5a. Left Arm: Motor (10-second hold) - 0(No drift) 5b. Right Arm: Motor (10-second hold) - 0(No drift) 6a. Left Leg: Motor (5-second hold - always test supine) - 0(No drift) 6b. Right Leg: Motor (5-second hold - always test supine) - 2(Drift, some effort against gravity) 7. Limb Ataxia (finger/nose \T\ heel/castillo - test with eyes open) - 0(Absent) 8. Sensory Loss (pinprick arms/legs/face) - 1(Mild to moderate loss) 9. Best Language: Aphasia (description/naming/reading) - 1(Mild to moderate aphasia) Initials: kc6 NIH Stroke Scale - NIH Stroke Score Date: 06/08/2024 Time: 17:23 Total Score = 1 10. Dysarthria (speech clarity - read or repeat words) - 1(Mild to Moderate) 11. Extinction and Inattention (visual/tactile/auditory/spatial/personal) - 0(No abnormality) 1a. Level of Consciousness (LOC) - 0(Alert) 1b. Level of Consciousness (LOC) (Month \T\ Age) - 0(Both) 1c. LOC Commands (Open \T\ Closes Eyes/Cosmetic Manager) - 0(Both) 2. Best Gaze (Lateral Gaze Paresis) - 0(Normal) 3. Visual Field Loss - 0(No visual loss) 4. Facial Palsy - 0(Normal) 5a. Left Arm: Motor (10-second hold) - 0(No drift) 5b. Right Arm: Motor (10-second hold) - 0(No drift) 6a. Left Leg: Motor (5-second hold - always test supine) - 0(No drift) 6b. Right Leg: Motor (5-second hold - always test supine) - 0(No drift) 7. Limb Ataxia (finger/nose \T\ heel/castillo - test with eyes open) - 0(Absent) 8. Sensory Loss (pinprick arms/legs/face) - 0(Normal) 9. Best Language: Aphasia (description/naming/reading) - 0(No aphasia) Initials: sb4 Addendum: 06/10/2024 14:48 Co-signature as Attending Physician, Abhinav Bauman MD I agree with the [facility] assessment and plan of care. Signatures: Dispatcher [employer] EDAbhinav Shields MD MD [facility] Anya Cash Lee, SIGN BOARD ERECTOR-C SIGN BOARD ERECTOR-Cla1 Haylee Tam RN RN cg Baltazar Franklin RN RN ll1 Ashley Grullon RN RN vc1 Codie Benitez RN RN Katia North, PA-C PA-C sb4 Akiko Olvera Heather RN Corrections: (The following items were deleted from the chart) 06/08 14:47 14:46 PMHx: SCIATIC (Hypertension); kcCarmela chang 17:24 17:19 patient reports onset of headache, generalized weakness, difficulty sb4 finding words, dizziness after eating lunch today, about 1 hour [employer]. sb4 17:57 16:17 sb4 sp 18:08 17:57 4- sp ll1 20:04 16:17 Intensive Care Unit sb4 vk 20:04 18:08 ll1 vk 20:07 20:04 vk cg 06/09 05:20 06/08 20:04 [facility] ER HOLD vk vc1 06/09 05:20 06/08 20:07 ERHOLD- cg vc1
--- NOTE | 2024-06-08 16:18 | ER ---
Nurse's Notes [facility] Nic Name: Cat Menard Age: 63 yrs Sex: Female : 1960 Arrival Date: 06/08/2024 Time: 14:37 Bed 27 Private MD: Diagnosis: Weakness;Aphasia;Headache Presentation: 06/08 14:44 Chief complaint: EMS states: headache with AMS beginning 1.5hrs [employer]. upon arrival pt is kc6 A\\T\\O x4 and slow to respond. reports headache 09/28. Coronavirus screen: At this time, the client does not indicate any symptoms associated with coronavirus-19. Ebola Screen: No symptoms or risks identified at this time. Initial Sepsis Screen: Does the patient meet any 2 criteria? No. Patient's initial sepsis screen is negative. Does the patient have a suspected source of infection?. Risk Assessment: Do you want to hurt yourself or someone else? Patient reports no desire to harm self or others. Onset of symptoms was June 08, 2024. Care prior to arrival: IV initiated. 20 GA, in the left antecubital area, Glucose check: 160. 14:44 Method Of Arrival: EMS: [facility] kc6 14:44 Acuity: GILMAR 3 kc6 Triage Assessment: 14:44 Headache History: Denies prior headaches. kc6 Historical: - Allergies: 14:46 No Known Allergies; kc6 - PMHx: 14:46 Hypertension; Diabetes - NIDDM; Depression; Anxiety; sciatica (Anxiety); kc6 - PSHx: 14:46 section; Arthroplasty of knee; kc6 - Immunization history:: Adult Immunizations up to date. - Infectious Disease History:: Denies. - Social history:: Smoking status: Patient denies any tobacco usage or history of. Screenin:45 VAN Screening: Arm Drift: Patient shows no arm weakness. Patient is VAN negative. kc6 Visual Disturbance: No visual disturbance noted. Aphasia: Expressive aphasia noted. Provider notified of +VAN scoring. Neglect: No neglect noted. [place] Swallow Protocol Exclusion Criteria: Unable to remain alert for testing: No NPO for medical/surgical reason by provider order No Tracheostomy tube present No No thin liquids due to preexisting dysphagia/baseline modified diet thickened liquids No Exclusion Criteria Result: Proceed Brief Cognitive Screen What is your name? Normal, Where are you right now? Normal, What year is it? Normal. Oral Mechanism Examination Facial Symmetry: Normal, Motion: Normal, Lip Closure: Normal, Oral Mechanism Result: Normal. 3 oz Water Swallow Challenge: Pt able to drink all water without stopping, coughing, choking or throat clearing: Yes Result: PASS Notified: Katia Wei PA-C. 14:47 [facility] ED Fall Risk Assessment (Adult) History of falling in the last 3 months, kc6 including since admission Yes- single mechanical fall (1 pt) Confusion or Disorientation No (0 pts) Intoxicated or Sedated No (0 pts) Impaired Gait No (0 pts) Mobility Assist Device Used No (0 pt) Altered Elimination No (0 pt) Score/Fall Risk Level 0 - 2 = Low Risk Oriented to surroundings, Maintained a safe environment. Abuse screen: Denies threats or abuse. Denies injuries from another. Nutritional screening: No deficits noted. Tuberculosis screening: No symptoms or risk factors identified. Assessment: 14:48 General: Appears in no apparent distress. comfortable, well groomed, well developed, kc6 Behavior is calm, cooperative, appropriate for age, quiet. Pain: Complains of pain in head, right shoulder Pain does not radiate. Pain currently is 8 out of 10 on a pain scale. Quality of pain is described as dull, throbbing, Pain began 2 hours ago. Is continuous. Neuro: Level of Consciousness is awake, alert, obeys commands, Oriented to person, place, time, situation, Appropriate for age Spooler are equal bilaterally Moves all extremities. Full function Gait is steady, Speech with expressive aphasia noted, Facial symmetry appears normal, Facial symmetry: tongue is midline, Pupils are PERRLA, Numbness in right arm and right leg Babinski is positive Reports dizziness, headache occipital area, that is the "worst ever". Cardiovascular: Capillary refill < 3 seconds. Respiratory: Airway is patent Trachea midline Respiratory effort is even, unlabored, Respiratory pattern is regular, symmetrical. GI: No signs and/or symptoms were reported involving the gastrointestinal system. : No signs and/or symptoms were reported regarding the genitourinary system. EENT: No signs and/or symptoms were reported regarding the EENT system. Derm: No signs and/or symptoms reported regarding the dermatologic system. Skin is intact, is healthy with good turgor, Skin is pink, warm \\T\\ dry. Musculoskeletal: No signs and/or symptoms reported regarding the musculoskeletal system. Circulation, motion, and sensation intact. Range of motion: intact in all extremities. 14:54 Reassessment: code stroke called, pt to CT via stretcher with this RN. [facility] 15:49 Reassessment: Patient appears in no apparent distress at this time. No changes from [facility] previously documented assessment. Patient and/or family updated on plan of care and expected duration. Pain level reassessed. Patient is alert, oriented x 3, equal unlabored respirations, skin warm/dry/pink. 16:49 Reassessment: Patient appears in no apparent distress at this time. No changes from [facility] previously documented assessment. Patient and/or family updated on plan of care and expected duration. Pain level reassessed. Patient is alert, oriented x 3, equal unlabored respirations, skin warm/dry/pink. 17:28 Reassessment: Patient appears in no apparent distress at this time. No changes from [facility] previously documented assessment. Patient and/or family updated on plan of care and expected duration. Pain level reassessed. Patient is alert, oriented x 3, equal unlabored respirations, skin warm/dry/pink. Patient states symptoms have not improved. 18:52 Reassessment: Patient appears in no apparent distress at this time. No changes from [facility] previously documented assessment. Patient and/or family updated on plan of care and expected duration. Pain level reassessed. Patient is alert, oriented x 3, equal unlabored respirations, skin warm/dry/pink. Vital Signs: 14:44 BP 137 / 66; Pulse 83; Resp 17 S; Temp 98.8(O); Pulse Ox 98% on R/A; Weight 102.06 kg 6 (R); Height 5 ft. 4 in. (R); Pain 8/10; 15:49 BP 120 / 54; Pulse 79; Resp 15 S; Pulse Ox 98% on R/A; kc6 17:28 BP 129 / 76; Pulse 71; Resp 17 S; Pulse Ox 97% on R/A; kc6 18:52 BP 127 / 62; Pulse 73; Resp 18 S; Pulse Ox 99% on R/A; 6 14:44 Body Mass Index 38.62 (102.06 kg, 162.56 cm) [facility] 14:44 Pain Scale: Adult kc6 [place] Coma Score: 17:26 Eye Response: spontaneous(4). Motor Response: obeys commands(6). Verbal Response: sb4 oriented(5). Total: 15. NIH Stroke Scale Scores: 10:45 NIHSS Score: 4 kc6 17:23 NIHSS Score: 1 sb4 ED Course: 14:44 Patient arrived in ED. kc6 14:46 [facility] sb4 14:46 Abhinav Bauman MD is Attending Physician. sb4 14:46 Triage completed. kc6 14:46 Arm band placed on. kc6 14:47 Patient has correct armband on for positive identification. Bed in low position. Call kc6 light in reach. Side rails up X2. Pulse ox on. NIBP on. Door closed. Noise minimized. Lights dimmed. Pillow given. Verbal reassurance given. 14:47 Maintain EMS IV. Dressing intact. Good blood return noted. Site clean \\T\\ dry. Gauge \\T\\ reinaldo 6 site: 20G LAC. Flushed with 10 mL NS. Patient maintains SpO2 saturation greater than 95% on room air. 15:10 CT Stroke Brain w/o Contrast In Process Unspecified. EDMS 15:11 CT Head Angio In Process Unspecified. EDMS 15:11 CT Neck Angio In Process Unspecified. EDMS 15:22 Codie Benitez, SEVEN is Primary Nurse. kc6 15:22 EKG done, by ED staff, reviewed by Katia Wei PA-C. em1 15:38 Stroke CXR 1 View In Process Unspecified. EDMS 16:05 Inserted saline lock: 20 gauge in right antecubital area, using aseptic technique. hb Flushed with 10 mL NS. 16:17 Murali Cross is Hospitalizing Provider. sb4 19:11 Report given to Liberty Harmon RN \\T\\ Monika Larson RN. kc6 06/09 06:31 No provider procedures requiring assistance completed. Patient admitted, IV remains in vc1 place. Administered Medications: 06/08 16:05 Drug: TNK FOR STROKE - Tenecteplase IV (Administer 10 ml NS flush BEFORE and kc6 AFTER tenecteplase) 25 mg IV at per protocol once; 0.25mg/kg, MAX DOSE 25 mg, IVP over 5 seconds {Co-Signature: trent (Jaye Estes RN).} Route: IV; Rate: per protocol; Site: left antecubital; 17:05 Follow up: Response: No adverse reaction; IV Status: Completed infusion; IV Intake: 5ml kc6 17:50 Drug: Hydrocodone-Acetaminophen PO (7.5 mg-325 mg) 1 tabs PO once Route: PO; kc6 18:52 Follow up: Response: No adverse reaction; Pain is decreased; RASS: Alert and Calm (0) kc6 Medication: 06/09 06:31 VIS not applicable for this client. vc1 Intake: 06/08 17:05 IV: 5ml; Total: 5ml. kc6 Outcome: 16:17 Decision to Hospitalize by Provider. sb4 06/09 06:32 Admitted to ICU accompanied by nurse, via wheelchair, room -4, vc1 Condition: stable Instructed on the need for admit, 06:32 Patient left the ED. vc1 NIH Stroke Scale - NIH Stroke Score Date: 06/08/2024 Time: 10:45 Total Score = 4 10. Dysarthria (speech clarity - read or repeat words) - 0(Normal) 11. Extinction and Inattention (visual/tactile/auditory/spatial/personal) - 0(No abnormality) 1a. Level of Consciousness (LOC) - 0(Alert) 1b. Level of Consciousness (LOC) (Month \\T\\ Age) - 0(Both) 1c. LOC Commands (Open \\T\\ Closes Eyes/Brass Molder) - 0(Both) 2. Best Gaze (Lateral Gaze Paresis) - 0(Normal) 3. Visual Field Loss - 0(No visual loss) 4. Facial Palsy - 0(Normal) 5a. Left Arm: Motor (10-second hold) - 0(No drift) 5b. Right Arm: Motor (10-second hold) - 0(No drift) 6a. Left Leg: Motor (5-second hold - always test supine) - 0(No drift) 6b. Right Leg: Motor (5-second hold - always test supine) - 2(Drift, some effort against gravity) 7. Limb Ataxia (finger/nose \\T\\ heel/castillo - test with eyes open) - 0(Absent) 8. Sensory Loss (pinprick arms/legs/face) - 1(Mild to moderate loss) 9. Best Language: Aphasia (description/naming/reading) - 1(Mild to moderate aphasia) Initials: kc6 NIH Stroke Scale - NIH Stroke Score Date: 06/08/2024 Time: 17:23 Total Score = 1 10. Dysarthria (speech clarity - read or repeat words) - 1(Mild to Moderate) 11. Extinction and Inattention (visual/tactile/auditory/spatial/personal) - 0(No abnormality) 1a. Level of Consciousness (LOC) - 0(Alert) 1b. Level of Consciousness (LOC) (Month \\T\\ Age) - 0(Both) 1c. LOC Commands (Open \\T\\ Closes Eyes/Brass Molder) - 0(Both) 2. Best Gaze (Lateral Gaze Paresis) - 0(Normal) 3. Visual Field Loss - 0(No visual loss) 4. Facial Palsy - 0(Normal) 5a. Left Arm: Motor (10-second hold) - 0(No drift) 5b. Right Arm: Motor (10-second hold) - 0(No drift) 6a. Left Leg: Motor (5-second hold - always test supine) - 0(No drift) 6b. Right Leg: Motor (5-second hold - always test supine) - 0(No drift) 7. Limb Ataxia (finger/nose \\T\\ heel/castillo - test with eyes open) - 0(Absent) 8. Sensory Loss (pinprick arms/legs/face) - 0(Normal) 9. Best Language: Aphasia (description/naming/reading) - 0(No aphasia) Initials: sb4 Signatures: Dispatcher [employer] KRISTYMS Ricardo Hernandez em1 Jaye Estes, SEVEN RN hb Ashley Grullon RN RN vc1 Codie Benitez RN RN kc6 Katia Wei PA-C PA-C sb4 Jaye Estes RN hb Corrections: (The following items were deleted from the chart) 06/08 14:47 14:46 PMHx: SCIATIC (Hypertension); kc6 kc6 14:53 14:48 Neuro: Level of Consciousness is awake, alert, obeys commands, Oriented kc6 to person, place, time, situation, Appropriate for age Spooler are equal bilaterally Moves all extremities. Full function Gait is steady, Speech is normal, Facial symmetry appears normal, Facial symmetry: tongue is midline, Pupils are PERRLA, Intact Babinski is positive Reports headache kc6 15:23 14:48 Neuro: Level of Consciousness is awake, alert, obeys commands, Oriented kc6 to person, place, time, situation, Appropriate for age Spooler are equal bilaterally Moves all extremities. Full function Gait is steady, Speech is normal, Facial symmetry appears normal, Facial symmetry: tongue is midline, Pupils are PERRLA, Babinski is positive Reports dizziness, headache kc6 15:49 14:48 Neuro: Level of Consciousness is awake, alert, obeys commands, Oriented kc6 to person, place, time, situation, Appropriate for age Spooler are equal bilaterally Moves all extremities. Full function Gait is steady, Speech with expressive aphasia noted, Facial symmetry appears normal, Facial symmetry: tongue is midline, Pupils are PERRLA, Numbness in right arm and right leg Babinski is positive Reports dizziness, headache kc6
[2024-06-08] MEDS ORDERED: ACETAMINOPHEN 500 MG TAB PO PRN (16:54)
--- NOTE | 2024-06-08 17:12 | P.HP ---
Certification for Inpatient Patient admitted to: Inpatient With expected LOS: >2 Midnights Patient will require the following post-hospital care: None Practitioner: I am a practitioner with admitting privileges, knowledge of patient current condition, hospital course, and medical plan of care. Services: Services provided to patient in accordance with Admission requirements found in Title 42 Section 412.3 of the Code of Federal Regulations Patient History Date of Service: 06/08/24 Reason for admission: CVA History of Present Illness: 63-year-old female with history of hypertension, [id number] diabetes, anxiety and depression, neuropathy presented to the emergency department with chief complaint of headache, lethargy, some difficulty with word finding, right sided paresthesias/weakness. Her symptoms started around noon she reports. CT head without contrast was negative for acute findings CTA of the head and neck were negative for large vessel occlusions chest x-ray is unremarkable patient arrived within the window and did receive TNK in ED. Her NIH is documented as a 4 in the emergency department her other labs were unremarkable. She will be admitted for further evaluation and management of suspected ischemic CVA now status post TNK. - Past Medical/Surgical History -: Diabetes mellitus type 2 -: Hypertension -: Anxiety/depression -: Neuropathy -: Knee surgery Psychosocial/ Personal History: Patient lives at home, her brother also lives in her home - Family History Family History: Reviewed- Non-Contributory - Social History Alcohol use: No CD- Drugs: No Caffeine use: No Place of Residence: Home Review of Systems 10-point ROS is otherwise unremarkable Neurological: Other (Headache, lightheadedness, paresthesias) Physical Examination - Physical Exam General: Alert, In no apparent distress, Oriented x3 HEENT: Atraumatic, PERRLA, Mucous membr. moist/pink, EOMI, Sclerae nonicteric Neck: Supple, 2+ carotid pulse no bruit, No LAD, Without JVD or thyroid abnormality Respiratory: Clear to auscultation bilaterally, Normal air movement Cardiovascular: Regular rate/rhythm, Normal S1 S2 Gastrointestinal: Normal bowel sounds, No tenderness Musculoskeletal: No tenderness Integumentary: No rashes Neurological: Normal strength at 5/5 x4 extr, Normal tone, Normal affect, Other (NIH score is 3, paresthesias to the right side of the body, mild right arm drift, speech mildly slurred) - Studies Laboratory Data (last 24 hrs) 06/08/24 06/08/24 06/08/24 15:19 15:19 15:19 WBC 8.10 Hgb 14.0 Hct 40.7 Plt Count 279 PT 10.8 INR 0.94 APTT 28.0 Sodium 135 L Potassium 4.0 BUN 10 Creatinine 0.87 Glucose 133 H Magnesium 2.2 Total Bilirubin 0.4 AST 12 L ALT 20 Alkaline Phosphatase 79 Assessment and Plan - Plan Assessment: Rule out ischemic CVA s/p TNK administration Headache Diabetes mellitus type [id number] Hypertension Anxiety/depression Neuropathy Plan: Rule out ischemic CVA s/p TNK administration Headache MRI ordered CTA negative for LVO CT head without contrast negative for acute findings Neurology consultation, speech and physical therapy consultations ordered No ASA, Plavix or Lovenox for 24 hours after TNK administration Continue statin, folic acid Admit to ICU, every hour neurochecks Diabetes mellitus type [id number] ACHS Accu-Chek, sliding scale insulin Hypertension Anxiety/depression Neuropathy Resume home medications when verified DVT PPX: No aspirin, Plavix or Lovenox for 24 hours after TNK administration Code status: Full code Discharge Plan: Home Plan to discharge in: 48 Hours - Advance Directives Does patient have a Living Will: No Does patient have a Durable POA for Healthcare: No - Code Status/Comfort Care Code Status Assessed: Yes (Full code) Critical Care: No Time Spent Managing Pts Care (In Minutes): 68
[2024-06-08] MEDS ORDERED: HYDROCODONE/APAP 7.5/325 MG TAB ONE (17:28)
[2024-06-08] MEDS: INSULIN REGULAR (HUMAN) 100 UNIT/ML SQ SCH (21:00)
[2024-06-08] MEDS ORDERED: ATORVASTATIN 20 MG TAB PO SCH (21:00)
[2024-06-08] MEDS ORDERED: ATORVASTATIN 40 MG TAB ONE (22:02)
[2024-06-08] MEDS ORDERED: NA CHLORIDE 0.9% 1,000 ML ONE (22:02)
[2024-06-08] MEDS: ATORVASTATIN 40 MG TAB PO SCH (22:04)
[2024-06-08] MEDS: NA CHLORIDE 0.9% 1,000 ML IV SCH (22:05)
[2024-06-08 22:19] VITALS: BMI 38.6
[2024-06-09] MEDS ORDERED: HYDROCODONE/APAP 5/325 MG TAB ONE (00:10)
[2024-06-09] MEDS: HYDROCODONE/APAP 5/325 MG TAB PO PRN (00:12)
[2024-06-09 06:42] VITALS: O2SAT 99
[2024-06-09 07:38] LABS: Absolute Basophils 0.1 K/uL (0-0.5); Absolute Eosinophils 0.2 K/uL (0-0.5); Absolute Lymphocytes (CBC) 2.4 K/uL (0.7-4.9); Absolute Monocytes 0.6 K/uL (0.1-1.3); Absolute Neutrophil 2.5 K/uL (1.8-8.0); Basophils % 1.2 % (0-1.3); Eosinophils % 3.5 % (0-4.4); Hematocrit 43.1 % (36.0-45.0); Hemoglobin 14.7 g/dL (12.0-15.0); Lymphocytes % 41.3 % (15.3-44.8); MCH 31.7 pg (27.0-35.0); MCV 93.3 fL (80-100); MPV 7.8 fL (7.6-11.3); Monocytes % 10.8 % (3.3-12.3); Neutrophils % 43.2 % (41.7-73.7); Nucleated Red Blood Cells % 0.1 % (0-0); Platelets 279 thou/uL (152-406); RBC Red Blood Cell Count 4.62 M/uL (3.86-4.86); Red Cell Distribution Width 13.9 % (12.1-15.2)
[2024-06-09 08:14] LABS: Anion Gap 7.7 mEq/L (5.0-15.0); Potassium 3.7 mEq/L (3.5-5.1); T4,Total 7.5 ug/dL (4.8-13.9)
[2024-06-09 08:17] LABS: Thyroid Stimulating Hormone 4.54 uIU/mL (0.358-3.740)
[2024-06-09] MEDS: FOLIC ACID 1 MG TABLET PO SCH (08:44)
--- NOTE | 2024-06-09 09:07 | RAD REPORT ---
EXAMINATION: Brain Wo Cont CLINICAL INDICATION: Female, 63 years old. R sided paresthesia, weakness, slurred speech TECHNIQUE: Multiplanar multisequence MR images of the brain were obtained without intravenous contras t. Unless otherwise specified, incidental findings do not require dedicated imaging follow-up. [id number]. COMPARISON: CT from yesterday FINDINGS: INTRACRANIAL: No acute infarct identified. No significant mass effect or midline shift.Ventriculomeg jerald likely related to degree of cerebral atrophy which is age advanced. Mild chronic small vessel ischemic changes.Moderate cerebral atrophy. VASCULATURE: Normal signal voids in the larger intracranial arteries and dural venous sinuses. SINUSES: The paranasal sinuses are predominantly clear.No mastoid effusions. BONE: The marrow signal pattern is within normal limits. IMPRESSION: No acute intracranial abnormality. Chronic findings as noted above.
[2024-06-09] MEDS: POTASSIUM CL SA 10 MEQ TAB PO ONE (10:36)
--- NOTE | 2024-06-09 14:11 | ECHO ---
HEIGHT: 5 ft 4 in WEIGHT: 225 lb 0 oz DATE OF STUDY: 06/09/[address]: Yandel Sinclair NP 2-DIMENSIONAL: YES M.MODE: YES DOPPLER: YES COLOR FLOW: YES TDS: PORTABLE: YES DEFINITY: BUBBLE STUDY: DIAGNOSIS: STROKE CARDIAC HISTORY: CATHERIZATION: NO SURGERY: NO PROSTHETIC VALVE: NO PACEMAKER: NO MEASUREMENTS (cm) DIASTOLIC (NORMALS) SYSTOLIC (NORMALS) IVSd 1.1 (0.6-1.2) LA Diam 2.9 (1.9-4.0) LVEF 60-65% LVIDd 4.6 (3.5-5.7) LVIDs 3.1 (2.0-3.5) %FS 33% LVPWd 1.3 (0.6-1.2) Ao Diam 3.2 (2.0-3.7) 2 DIMENSIONAL ASSESSMENT: RIGHT ATRIUM: NORMAL LEFT ATRIUM: NORMAL RIGHT VENTRICLE: NORMAL LEFT VENTRICLE: NORMAL TRICUSPID VALVE: NORMAL MITRAL VALVE: NORMAL PULMONIC VALVE: NORMAL AORTIC VALVE: NORMAL PERICARDIAL EFFUSION: NONE AORTIC ROOT: NORMAL LEFT VENTRICULAR WALL MOTION: NORMAL DOPPLER/COLOR FLOW: GRADE I DIASTOLIC DYSFUNCTION COMMENTS: 1. NORMAL LEFT VENTRICULAR SYSTOLIC FUNCTION, EJECTION FRACTION 60-65%, NORMAL WALL MOTION 2. GRADE I DIASTOLIC DYSFUNCTION TECHNOLOGIST: MIREYA ZARATE
--- NOTE | 2024-06-09 14:51 | P.PN ---
Date of Service: 06/09/24 Subjective: No acute events overnight No changes on exam Still with complaints of sciatic pain primarily affecting the right lower extr emity ROS: 10 point ROS as noted above, otherwise negative Physical exam GEN: Alert, oriented, NAD HEENT: Normal conjunctiva, sclera anicteric CV: Regular rate and rhythm, no edema Pulm: Nonlabored respirations on room air ABD: Soft, nontender, nondistended MSK: No joint tenderness Integumentary: No rashes Neuro: Paresthesias to right side with decreased sensation, persistent headache Vitals reviewed Assessment: Rule out ischemic CVA s/p TNK administration Headache Sciatic nerve pain Diabetes mellitus type [id number] Hypertension Anxiety/depression Neuropathy Plan: Rule out ischemic CVA s/p TNK administration Headache MRI ordered and negative for CVA or other acute findings CTA negative for LVO CT head without contrast negative for acute findings Neurology consultation, speech and physical therapy consultations ordered No ASA, Plavix or Lovenox for 24 hours after TNK administration Continue statin, folic acid Admit to ICU, every hour neurochecks Okay to downgrade from ICU if CT head at 1600 is negative Sciatic nerve pain As needed pain medications PT Diabetes mellitus type [id number] ACHS Accu-Chek, sliding scale insulin Hypertension Anxiety/depression Neuropathy Resume home medications when verified DVT PPX: No aspirin, Plavix or Lovenox for 24 hours after TNK administration Code status: Full code Discharge Plan: Home Plan to discharge in: 48 Hours Time Spent Managing Pts Care (In Minutes): 35
[2024-06-09] MEDS: HYDRALAZINE HCL 20 MG/ML VIAL IV PRN (16:20)
[2024-06-09] MEDS: ONDANSETRON 4 MG/2 ML VIAL IV PRN (16:48)
[2024-06-09] MEDS: LORazepam 2 MG/ML VIAL IV ONE (17:18)
[2024-06-09] MEDS: GABAPENTIN 300 MG CAP PO SCH (20:46)
[2024-06-09] MEDS: DULOXETINE 30 MG CAP PO SCH (20:46)
--- NOTE | 2024-06-09 21:04 | CON ---
Reason For Consultation: Consultation was called because of stroke versus TIA. History Of Present Illness: Ms. Menard is a 63-year-old patient with diabetes mellitus type 2, hyperte nsion, anxiety, peripheral neuropathy, who was at home when she developed headache; lethargy; word-fi nding difficulty; right-sided weakness; paresis of face, arm, and leg. Symptoms began around noon. She came to [facility] within the window for TNKase. Head CT scan was negative for any acut e ischemic hemorrhagic changes. CT scan of head and neck showed no large vessel occlusion. She did receive TNKase in the emergency department, and NIH Stroke Scale of 4 in the emergency room. She was then sent to ICU for neuro checks and to monitor blood pressure and make adjustments appropriately g iven range following TNKase, and subsequently received brain imaging to rule out any hemorrhagic conv ersion or worsening events. The patient did report returning to at least 75% of normal in the streng th of the arm. Coordination and sensation also much improved, but she still has some decreased sensa tion on the right side. Brain MRI done earlier today showed no acute ischemic or hemorrhagic finding s. The study did show cerebral atrophy, which showed advanced for age, for mild chronic small vessel ischemic disease. There is ventriculomegaly noted. An echocardiogram done yesterday showed ejectio n fraction 60% to 65%. It was a normal study except for grade 1 diastolic dysfunction. Past Medical History: As noted. Social History: The patient lives with her brother, single family home. No alcohol, tobacco, or IV drug use. Family History: Noncontributory. Allergies: NO KNOWN DRUG ALLERGIES. Current Medications: Tylenol 500 mg every 4 hours as needed, [place] 5/325 every 6 hours as needed, as pirin 162 mg daily, Lipitor 40 mg at bedtime, Plavix 75 mg daily, duloxetine 30 mg at bedtime, Loveno x 40 mg subcutaneously daily, folic acid 1 mg daily, gabapentin 300 mg at bedtime, Apresoline 10 mg e very 6 hours as needed for systolic blood pressure greater than 180, HydroDIURIL 25 mg daily, Zofran 4 mg every 6 hours as needed. Review of Systems: Aside from mentioned above, she denies any recent fevers, chills, nausea, vomiting, myalgias, arthral gias, rash, headache, weight change. No other issues such as psychiatric problems. Physical Examination: Vital Signs: Blood pressure 145/72, pulse 67, respiratory rate 18, temperature 97.4, oxygen saturati on 100%. General: Again, Ms. Menard is resting in ICU comfortably. She is in no acute distress. HEENT: She appears normocephalic, atraumatic. Sclerae anicteric. Oropharynx pink and moist. Neck: Supple. Chest: Clear. Heart: Regular. Extremities: Show no significant edema, cyanosis, or clubbing. Neurological: Intact face with symmetric excursions. Intact sensation on the face. She does report mild dysesthesia in the right upper versus left upper extremity and similarly so in the right lower versus left. She feels mildly weak in the right lower extremity; however, she is able to hold a 5 co unt or elevating her right and left leg off the bed without any drift. No drift noted in the upper e xtremities. NIH Stroke Scale currently down to 0. Laboratory Studies: Complete blood count differential is completely normal x2. INR 0.94. Chemistri es: Sodium 139, potassium 3.7, chloride 108, carbon dioxide 27, creatinine 0.75, glucose ranged from 109 to 128. Hemoglobin A1c 7.8. Calcium 8.8, LDL cholesterol 172. TSH 4.54, free T4 0.84, thyroxi ne T4 is 7.5. Urine drug screen was negative. Assessment: Ms. Menard is a 63-year-old patient with a possible stroke. She does have some persistent right-sided sensory deficits compared to the left side, although MRA of the head shows no acute isch emic hemorrhagic findings. She does have significant small vessel ischemic disease causing ventricul omegaly and cerebral atrophy for young age of 63. She was not taking aspirin, Plavix, or any antipla telet medication with stroke risk of diabetes mellitus, hypertension, dyslipidemia. She has a hemogl obin A1c of 7.8. Plan: 1. Aspirin 81 mg daily, Plavix 75 mg daily, folic acid 1 mg daily. 2. Aggressive management of diabetes, hypertension, dyslipidemia. 3. The patient may benefit from outpatient physical therapy and she was instructed about changes in d iet, hydration, exercise, and rest that can minimize the risk of additional strokes. After the patie nt is discharged, she should follow up in Dr. Bach's clinic within the month. YUSEF/MARCUS Voice ID: [id number] Report ID: [id number]
--- NOTE | 2024-06-09 21:48 | RAD REPORT ---
EXAM: CT brain without contrast HISTORY: CVA. 24 hours status post TNK therapy COMPARISON: June 09, 2024 TECHNIQUE: Multiple contiguous axial images were obtained and a CT of the brain without contrast.. Sagittal and coronal reconstruction performed. Automated exposure control, adjustment of the mA and/or kV according to patient size, and/or iterative reconstruction. Unless otherwise specified, incidental f indings do not require dedicated imaging follow-up FINDINGS: An intracranial bleed is not seen Prominence of the ventricles persists. No extra-axial fluid collection noted No significant hypodensity within the brain No fluid within the visualized sinuses or mastoids noted. IMPRESSION: No acute intracranial abnormality noted. Prominence of ventricles could be the sequela of cerebral atrophy or related to normal pressure hydro cephalus and should be correlated clinically. If the patient continues to have symptoms to suggest an acute intracranial abnormality then MRI of th e brain would be recommended.
[2024-06-10 04:45] LABS: Absolute Basophils 0.1 K/uL (0-0.5); Absolute Eosinophils 0.2 K/uL (0-0.5); Absolute Lymphocytes (CBC) 1.9 K/uL (0.7-4.9); Absolute Monocytes 0.8 K/uL (0.1-1.3); Absolute Neutrophil 3.5 K/uL (1.8-8.0); Basophils % 0.9 % (0-1.3); Eosinophils % 3.2 % (0-4.4); Hematocrit 42.8 % (36.0-45.0); Hemoglobin 14.9 g/dL (12.0-15.0); Lymphocytes % 30.1 % (15.3-44.8); MCH 32.5 pg (27.0-35.0); MCHC 34.8 g/dL (32.0-36.0); MCV 93.5 fL (80-100); MPV 8.2 fL (7.6-11.3); Monocytes % 11.8 % (3.3-12.3); Nucleated Red Blood Cells % 0.1 % (0-0); Platelets 251 thou/uL (152-406); RBC Red Blood Cell Count 4.58 M/uL (3.86-4.86); Red Cell Distribution Width 13.8 % (12.1-15.2)
[2024-06-10] MEDS: hydroCHLOROthiazide 25 MG TAB PO SCH (09:19)
[2024-06-10] MEDS: ASPIRIN EC 81 MG TAB PO SCH (09:20)
[2024-06-10] MEDS: ENOXAPARIN 40 MG/0.4 ML SQ SCH (09:20)
[2024-06-10] MEDS: CLOPIDOGREL 75 MG TABLET PO SCH (09:20)
[2024-06-10 12:37] VITALS: BP 148/94; TEMP 98.3
--- NOTE | 2024-06-10 15:07 | P.DS ---
Admission Date: 06/08/24 Discharge Date: 06/10/24 Disposition: ROUTINE DISCHARGE Discharge Condition: GOOD Reason for Admission: CVA Brief History of Present Illness: 63-year-old female with history of hypertension, [id number] diabetes, anxiety and depression, neuropathy presented to the emergency department with chief complaint of headache, lethargy, some difficulty with word finding, right sided paresthesias/weakness. Her symptoms started around noon she reports. CT head without contrast was negative for acute findings CTA of the head and neck were negative for large vessel occlusions chest x-ray is unremarkable patient arrived within the window and did receive TNK in ED. Her NIH is documented as a 4 in the emergency department her other labs were unremarkable. She will be admitted for further evaluation and management of suspected ischemic CVA now status post TNK. Hospital Course: Assessment: Rule out ischemic CVA s/p TNK administration Headache Diabetes mellitus type [id number] Hypertension Anxiety/depression Neuropathy Patient was admitted to the hospital for right sided paresthesias, difficulty with finding words and mild slurred speech. She was given TNK in the emergency department and admitted to the ICU for monitoring after this. CT head was negative for acute findings, CTA of the head and neck were negative for large vessel occlusions. Subsequent MRI of the brain did not show signs of acute CVA, symptoms have begun to significantly improve. Patient was seen by neurology who recommends outpatient PT, risk factor modification in addition to starting aspirin, Plavix and statin. Patient doing well today, ambulatory to the restroom on her own and requesting discharge. Prescriptions for aspirin, Plavix and statin sent to her pharmacy [facility] Other medication should be continued as previously taken She will take Plavix for 1 month, after that she will need to take aspirin until otherwise instructed by neurology. Please follow-up with your primary care doctor 1 to 2 weeks Please also follow-up with neurologyDr. Adam in 1 to 2 weeks Vital Signs/Physical Exam: Temp Pulse Resp BP Pulse Ox 98.3 F 80 16 148/94 H 94 06/10/24 12:00 06/10/24 12:00 06/10/24 12:00 06/10/24 12:00 06/10/24 12:00 General: Alert, In no apparent distress, Oriented x3 HEENT: Atraumatic Neck: Supple, JVD not distended Respiratory: Clear to auscultation bilaterally, Normal air movement Cardiovascular: Regular rate/rhythm, Normal S1 S2 Gastrointestinal: Normal bowel sounds Musculoskeletal: No tenderness Neurological: Normal speech, Normal affect, Other (mild right sided paresthesia) Laboratory Data at Discharge: WBC 6.40 thou/uL (4.3-10.9) 06/10/24 04:00 Hgb 14.9 g/dL (12.0-15.0) 06/10/24 04:00 Hct 42.8 % (36.0-45.0) 06/10/24 04:00 Plt Count 251 thou/uL (152-406) 06/10/24 04:00 PT 10.8 SECONDS (10-13.0) 06/08/24 15:19 INR 0.94 06/08/24 15:19 APTT 28.0 SECONDS (27.2-37.4) 06/08/24 15:19 Sodium 137 mEq/L (136-145) 06/10/24 04:00 Potassium 4.0 mEq/L (3.5-5.1) 06/10/24 04:00 BUN 10 mg/dL (7-18) 06/10/24 04:00 Creatinine 0.80 mg/dL (0.55-1.02) 06/10/24 04:00 Glucose 142 mg/dL (74-106) H 06/10/24 04:00 Magnesium 2.2 mg/dL (1.6-2.4) 06/08/24 15:19 Total Bilirubin 0.4 mg/dL (0.2-1.0) 06/08/24 15:19 AST 12 U/L (15-37) L 06/08/24 15:19 ALT 20 U/L (13-56) 06/08/24 15:19 Alkaline Phosphatase 79 U/L (45-117) 06/08/24 15:19 LDL Cholesterol Direct 172 mg/dL (100-129) H 06/09/24 07:29 Home Medications: Dulaglutide [Trulicity] 3 mg SQ DIRECTED 06/08/24 Duloxetine HCl [Cymbalta] 30 mg PO BEDTIME 06/08/24 Gabapentin 300 mg PO BEDTIME 06/08/24 Metformin HCl 1,000 mg PO DAILY 06/08/24 hydroCHLOROthiazide [Hydrochlorothiazide] 25 mg PO DAILY 06/08/24 Cyclobenzaprine [Flexeril*] 10 mg PO BEDTIME PRN 06/09/24 Aspirin [Aspirin EC] 81 mg PO DAILY #60 tab 06/10/24 Atorvastatin Calcium [Lipitor] 40 mg PO BEDTIME #30 tab 06/10/24 Clopidogrel Bisulfate [Plavix*] 75 mg PO DAILY #30 tab 06/10/24 New Medications: Aspirin [Aspirin EC] 81 mg PO DAILY #60 tab Atorvastatin Calcium [Lipitor] 40 mg PO BEDTIME #30 tab Clopidogrel Bisulfate [Plavix*] 75 mg PO DAILY #30 tab Physician Discharge Instructions: Patient was admitted to the hospital for right sided paresthesias, difficulty with finding words and mild slurred speech. She was given TNK in the emergency department and admitted to the ICU for monitoring after this. CT head was negative for acute findings, CTA of the head and neck were negative for large vessel occlusions. Subsequent MRI of the brain did not show signs of acute CVA, symptoms have begun to significantly improve. Patient was seen by neurology who recommends outpatient PT, risk factor modification in addition to starting aspirin, Plavix and statin. Patient doing well today, ambulatory to the restroom on her own and requesting discharge. Prescriptions for aspirin, Plavix and statin sent to her pharmacy [facility] Other medication should be continued as previously taken She will take Plavix for 1 month, after that she will need to take aspirin until otherwise instructed by neurology. Please follow-up with your primary care doctor 1 to 2 weeks Please also follow-up with neurologyDr. Kia in 1 to 2 weeks [employer] Continuing Financial Advisor: LYLA Nicole. [phone]. Expect a call within 1-2 business days from discharge. Alternate: LYLA Smith [phone]. Diet: AHA Activity: Fall precautions (use walker) Followup: Vincent Adam MD [ASSOCIATE-ACTIVE - CAN ADMIT] - 1-2 Weeks Perlita Bernal NP [Primary Care Provider] - NONE,NONE [UNKNOWN] - 1 Week Time spent managing pt's care (in minutes): 45
--- NOTE | 2024-06-11 12:47 | EKG ---
Test Date: 2024-06-08 Test Time: 15:19:17 Game Producer: JORGE MEASUREMENT RESULTS: Intervals: Rate: 75 LA: 180 QRSD: 80 QT: 404 QTc: 451 [place]: P: 53 LA: 180 QRS: -42 T: 55 INTERPRETIVE STATEMENTS: Normal sinus rhythm Left axis deviation Possible Lateral infarct, age undetermined Abnormal ECG Compared to ECG 05/26/2020 03:25:42 Myocardial infarct finding now present T-wave abnormality no longer present Possible ischemia no longer present Electronically Signed On 06-11-24 12:40:44 CDT by Vladislav Benítez
== END 2024-06-10 13:20 | disposition home or self-care (01) | DRG 92 ==
LOC: ER 14:37 → ERHOLD 16:53 → 3RD-ICU 06-09 06:51 → 2ND 06-09 18:15
PROVIDERS: ADMIT Internal Medicine; ATTEND Hospitalist
DX: R20.2 Paresthesia of skin (principal); R47.01 Aphasia; R47.81 Slurred speech; I10 Essential (primary) hypertension; F41.9 Anxiety disorder, unspecified; F32.A Depression, unspecified; E11.40 Type 2 diabetes mellitus with diabetic neuropathy, unspecified; R29.704 NIHSS score 4; Z86.73 Personal history of transient ischemic attack (TIA), and cerebral infarction without residual deficits
CPT/HCPCS: 36415; 70450; 70496; 70498; 70551; 71045; 80048; 80076; 82947; 83036; 83735; 84436; 84439; 84443; 84484; 85025; 85610; 85730; 92610; 92977; 93005; 93306; 96365; 97112; 97116; 97161; 99285; J1650; J2405; J3101; J7030; Q9967